=== PATIENT | male | born 2000 | race Hispanic/Latino ===

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

== ENCOUNTER 2021-03-14 18:54 | Emergency (ER) | payer BC, SELFPAY ==
--- OUTSIDE RECORDS SUMMARY | 2021-03-14 18:57 | XMS REPORT | Continuity of Care Document ---
:2000 Author Organization [facility] t Address [address] [place] [address] Care Team Providers Name Role Phone PHILIPPE PATEL Attending Clinician Unavailable Problems This patient has no known problems. Allergies, Adverse Reactions, Alerts This patient has no known allergies or adverse reactions. Medications This patient has no known medications. Procedures This patient has no known procedures. Encounters Start End Encounter Admission Attending Care Care Encounter Source Date/Time Date/Time Type Type Clinicians Facility Department ID 2021-03-03 2021-03-05 Emergency [facility] PATEL ALBARO [id number] 16:48:00 07:50:00 PHILIPPE Results This patient has no known results.
[2021-03-14] MEDS ORDERED: METOCLOPRAMIDE 10 MG/2mL INJ ONE (20:36)
[2021-03-14] MEDS ORDERED: NA CHLORIDE 0.9% 500 ML ONE (20:37)
[2021-03-14] MEDS ORDERED: DIPHENHYDRAMINE 50 MG/ML VIAL ONE (20:37)
[2021-03-14] MEDS ORDERED: KETOROLAC 30 MG/ML INJ ONE (20:37)
--- NOTE | 2021-03-14 21:19 | RAD REPORT ---
EXAM DESCRIPTION: CT - Head Brain Wo Cont - 03/14/2021 8:55 pm CLINICAL HISTORY: HEADACHE COMPARISON: <Comparisons> TECHNIQUE: All CT scans are performed using dose optimization technique as appropriate and may inclu de automated exposure control or mA/KV adjustment according to patient size. FINDINGS: No intracranial hemorrhage, hydrocephalus or extra-axial fluid collection.No areas of brai n edema or evidence of midline shift. Right maxillary sinus mucous retention cyst. The calvarium is intact. IMPRESSION: No acute intracranial abnormality.
--- NOTE | 2021-03-14 22:28 | ER ---
Nurse's Notes [facility] Name: Guy Sifuentes Age: 20 yrs Sex: Male : 2000 Arrival Date: 03/14/2021 Time: 18:55 Bed Treatment Private MD: Diagnosis: Headache Presentation: 03/14 19:02 Chief complaint: Patient states: [place]'s for at least over 1 month. Feel like he has ll1 fever. States they sent him to a psych facility in [place] after his last visit. Coronavirus screen: Vaccine status: Patient reports being unvaccinated. Client denies travel out of the [place] in the last 14 days. At this time, the client does not indicate any symptoms associated with coronavirus-19. Ebola Screen: Patient denies travel to an Ebola-affected area in the 21 days before illness onset. Initial Sepsis Screen: Does the patient meet any 2 criteria? No. Patient's initial sepsis screen is negative. Does the patient have a suspected source of infection? No. Patient's initial sepsis screen is negative. Risk Assessment: Do you want to hurt yourself or someone else? Patient reports no desire to harm self or others. Onset of symptoms was February 11, 2021. 19:02 Method Of Arrival: Ambulatory ll1 19:02 Acuity: ZULEIKA 3 ll1 Triage Assessment: 21:51 Pain: Also complains of nausea. vg1 Historical: - Allergies: 19:04 No Known Allergies; ll1 - PMHx: 19:04 None; ll1 - PSHx: 19:04 None; ll1 - Immunization history:: Client reports having NOT received the Covid vaccine. - Social history:: Smoking status: Reported history of juuling and/or vaping. Patient/guardian denies using tobacco, Stopped _ months ago .2. Screenin:04 Abuse screen: Denies threats or abuse. Nutritional screening: No deficits noted. vg1 Tuberculosis screening: No symptoms or risk factors identified. Fall Risk No fall in past 12 months (0 pts). No secondary diagnosis (0 pts). IV access (20 points). Ambulatory Aid- None/Bed Rest/Nurse Assist (0 pts). Gait- Normal/Bed Rest/Wheelchair (0 pts) Mental Status- Oriented to own ability (0 pts). Total Mueller Fall Scale indicates No Risk (0-24 pts). Assessment: 20:01 General: Appears in no apparent distress. uncomfortable, Behavior is anxious. Pain: vg1 Complains of pain in head Pain currently is 10 out of 10 on a pain scale. Pain began x1 month. Neuro: Level of Consciousness is awake, alert, obeys commands, Oriented to person, place, time, situation, Reports blurred vision dizziness, headache. Cardiovascular: Patient's skin is warm and dry. Respiratory: Airway is patent Respiratory effort is even, unlabored, Denies cough. GI: Reports nausea. : No signs and/or symptoms were reported regarding the genitourinary system. EENT: Denies nasal congestion, nasal discharge. Derm: Skin is intact, is healthy with good turgor. Musculoskeletal: Circulation, motion, and sensation intact. 21:01 Reassessment: Patient appears in no apparent distress at this time. No changes from vg1 previously documented assessment. Patient and/or family updated on plan of care and expected duration. Pain level reassessed. Patient is alert, oriented x 3, equal unlabored respirations, skin warm/dry/pink. 21:50 Reassessment: Patient appears in no apparent distress at this time. Patient and/or vg1 family updated on plan of care and expected duration. Pain level reassessed. Patient is alert, oriented x 3, equal unlabored respirations, skin warm/dry/pink. Rates headache 2/10 Patient states feeling better. Vital Signs: 19:02 BP 133 / 77; Pulse 82; Resp 17; Temp 98.1; Pulse Ox 97% ; Weight 68.04 kg; Height 5 ft. ll1 7 in. (170.18 cm); Pain 10/10; 21:54 BP 127 / 71; Pulse 69; Resp 16; Pulse Ox 98% ; vg1 19:02 Body Mass Index 23.49 (68.04 kg, 170.18 cm) ll1 ED Course: 18:55 Patient arrived in ED. am2 18:56 [facility] 18:56 Abundio Lockwood MD is Attending Physician. [facility] 19:04 Triage completed. ll1 19:05 Arm band placed on. 1 19:37 Attending Physician role handed off by Abundio Lockwood MD [facility] 19:37 Adriel Anne MD is Attending Physician. grant 19:43 Lisa Pope, RN is Primary Nurse. vg1 20:04 Patient has correct armband on for positive identification. Bed in low position. Call vg1 light in reach. Adult w/ patient. 20:48 Inserted saline lock: 20 gauge in left antecubital area, using aseptic technique. vg1 20:54 CT Head Brain wo Cont In Process Unspecified. EDMS 21:51 No provider procedures requiring assistance completed. vg1 22:28 Andrea Moreno MD is Referral Physician. [facility] 22:38 IV discontinued, intact, bleeding controlled, No redness/swelling at site. Pressure vg1 dressing applied. Administered Medications: 20:49 Drug: diphenhydrAMINE 12.5 mg Route: IVP; Site: left antecubital; vg1 21:50 Follow up: Response: No adverse reaction; Marked relief of symptoms vg1 20:51 Drug: Ketorolac 30 mg Route: IVP; Site: left antecubital; vg1 21:50 Follow up: Response: No adverse reaction; Marked relief of symptoms vg1 20:53 Drug: NS 0.9% 500 ml Route: IV; Rate: bolus; Site: left antecubital; vg1 21:50 Follow up: IV Status: Completed infusion; IV Intake: 500ml vg1 20:53 Drug: Reglan (metoCLOPramide) 20 mg Route: IVP; Site: left antecubital; vg1 21:50 Follow up: Response: No adverse reaction; Marked relief of symptoms vg1 Intake: 21:50 IV: 500ml; Total: 500ml. vg1 Outcome: 22:27 Discharge ordered by . [facility] 22:36 Discharged to home ambulatory, with family. vg1 22:36 Condition: stable 22:36 Discharge instructions given to patient, family, Instructed on discharge instructions, follow up and referral plans. Demonstrated understanding of instructions, follow-up care. 22:38 Patient left the ED. vg1 Signatures: Dispatcher [employer] Adriel Hui MD MD cha Mickail, Joel, SKINNY BABB Nazia Gutierrez am2 Lisa Pope, RN RN vg1 Amy Gomes RN RN ll1
--- NOTE | 2021-03-14 22:28 | EDPHYS ---
Physician Documentation [facility] Name: Guy Sifuentes Age: 20 yrs Sex: Male : 2000 Arrival Date: 03/14/2021 Time: 18:55 Bed Treatment Private MD: ED Physician Adriel Anne Historical: - Allergies: 03/14 19:04 No Known Allergies; ll1 - PMHx: 19:04 None; ll1 - PSHx: 19:04 None; ll1 - Immunization history:: Client reports having NOT received the Covid vaccine. - Social history:: Smoking status: Reported history of juuling and/or vaping. Patient/guardian denies using tobacco, Stopped _ months ago .2. Vital Signs: 19:02 BP 133 / 77; Pulse 82; Resp 17; Temp 98.1; Pulse Ox 97% ; Weight 68.04 kg; Height 5 ft. ll1 7 in. (170.18 cm); Pain 10/10; 21:54 BP 127 / 71; Pulse 69; Resp 16; Pulse Ox 98% ; vg1 19:02 Body Mass Index 23.49 (68.04 kg, 170.18 cm) ll1 MDM: 19:38 Patient medically screened. grant 22:26 Data reviewed: vital signs, nurses notes. Counseling: I had a detailed discussion with [facility] the patient and/or guardian regarding: the historical points, exam findings, and any diagnostic results supporting the discharge/admit diagnosis, the need for outpatient follow up, to return to the emergency department if symptoms worsen or persist or if there are any questions or concerns that arise at home. 03/14 20:32 Order name: CT Head Brain wo Cont; Complete Time: 21:23 [facility] 03/14 20:32 Order name: Saline Lock; Complete Time: 20:59 [facility] Administered Medications: 20:49 Drug: diphenhydrAMINE 12.5 mg Route: IVP; Site: left antecubital; vg1 21:50 Follow up: Response: No adverse reaction; Marked relief of symptoms vg1 20:51 Drug: Ketorolac 30 mg Route: IVP; Site: left antecubital; vg1 21:50 Follow up: Response: No adverse reaction; Marked relief of symptoms vg1 20:53 Drug: NS 0.9% 500 ml Route: IV; Rate: bolus; Site: left antecubital; vg1 21:50 Follow up: IV Status: Completed infusion; IV Intake: 500ml vg1 20:53 Drug: Reglan (metoCLOPramide) 20 mg Route: IVP; Site: left antecubital; vg1 21:50 Follow up: Response: No adverse reaction; Marked relief of symptoms vg1 Disposition Summary: 03/14/21 22:27 Discharge Ordered Location: Home [facility] Condition: Stable jm Diagnosis - Headache jm Followup: jmm - With: Private Physician - When: 2 - 3 days - Reason: Recheck today's complaints, Continuance of care, Re-evaluation by your physician Followup: [facility] - With: Andrea Moreno MD - When: 2 - 3 days - Reason: Recheck today's complaints, Continuance of care, Re-evaluation by your physician Discharge Instructions: - Discharge Summary Sheet jm - Migraine Headache [facility] Forms: - Medication Reconciliation Form [facility] - Thank You Letter [facility] - Antibiotic Education [facility] - Prescription Opioid Use [facility] Addendum: 03/16/2021 07:16 Co-signature as Attending Physician, Adriel Anne MD I agree with the assessment and c stevenson plan of care. Signatures: Dispatcher [employer] Adriel Hui MD MD cha Mickail, Joel, PA PA jmm Garcia, Victoria, RN RN vg1 Amy Gomes RN RN ll1
[2021-03-15 00:55] VITALS: BP 127/71; O2SAT 98
[2021-03-15 00:56] VITALS: TEMP 98.1
== END 2021-03-14 22:38 | disposition home or self-care (01) ==
LOC: ER 18:54
DX: R51.9 Headache, unspecified (principal)
CPT/HCPCS: 96361; 70450; 96375; 96374; 99283; J2765; J1200; J7040

== ENCOUNTER 2021-10-28 18:54 | Emergency (ER) | payer BC ==
--- NOTE | 2021-10-28 21:37 | RAD REPORT ---
EXAM DESCRIPTION: CT - Head Brain Wo Cont - 10/28/2021 9:20 pm CLINICAL HISTORY: headache COMPARISON: Head Brain Wo Cont dated 03/14/2021 TECHNIQUE: All CT scans are performed using dose optimization technique as appropriate and may inclu de automated exposure control or mA/KV adjustment according to patient size. FINDINGS: No intracranial hemorrhage, hydrocephalus or extra-axial fluid collection.No areas of brai n edema or evidence of midline shift. Mucous retention cyst right maxillary sinus. The calvarium is intact. IMPRESSION: No acute intracranial abnormality.
[2021-10-28] MEDS ORDERED: dexAMETHasone 10 MG/ML VIAL ONE (21:46)
[2021-10-28] MEDS ORDERED: KETOROLAC 30 MG/ML INJ ONE (21:46)
[2021-10-28] MEDS ORDERED: NA CHLORIDE 0.9% 1,000 ML ONE (21:46)
[2021-10-28] MEDS ORDERED: METOCLOPRAMIDE 10 MG/2mL INJ ONE (21:46)
[2021-10-28] MEDS ORDERED: DIPHENHYDRAMINE 50 MG/ML VIAL ONE (21:46)
--- NOTE | 2021-10-28 23:00 | ER ---
Nurse's Notes [facility] Name: Guy Sifuentes Age: 20 yrs Sex: Male : 2000 Arrival Date: 10/28/2021 Time: 19:01 Bed 12 Private MD: Diagnosis: Headache Presentation: 10/28 19:15 Chief complaint: Patient states: "They told me to take an advil, but that has not tw5 helped my headache it has been hurting bad for a couple of days.". Coronavirus screen: Vaccine status: Patient reports being unvaccinated. Ebola Screen: Patient negative for fever greater than or equal to 101.5 degrees Fahrenheit, and additional compatible Ebola Virus Disease symptoms Patient denies exposure to infectious person. Patient denies travel to an Ebola-affected area in the 21 days before illness onset. Initial Sepsis Screen: Does the patient meet any 2 criteria? No. Patient's initial sepsis screen is negative. Does the patient have a suspected source of infection? No. Patient's initial sepsis screen is negative. Risk Assessment: Do you want to hurt yourself or someone else? Patient reports no desire to harm self or others. Onset of symptoms was October 27, 2021. 19:15 Method Of Arrival: Ambulatory tw5 19:15 Acuity: ZULEIKA 4 tw5 Triage Assessment: 19:17 Headache History: The patient has had previous headaches and this one is similar to tw5 previous episodes. General: Appears in no apparent distress. Behavior is calm, cooperative, appropriate for age. General: Reports. Pain: Pain currently is 7 out of 10 on a pain scale. Pain began 2-3 days ago. Also complains of no other associated symptoms. Neuro: Level of Consciousness is awake, alert, obeys commands, Oriented to person, place, time, situation. Historical: - Allergies: 19:17 No Known Allergies; tw5 - Home Meds: 19:17 None [Active]; tw5 - PMHx: 19:17 None; tw5 - PSHx: 19:17 None; tw5 - Immunization history:: Flu vaccine status is unknown. - Social history:: Smoking status: Patient reports the use of cigarette tobacco products. Screenin:24 Abuse screen: Denies threats or abuse. Denies injuries from another. Nutritional tw5 screening: No deficits noted. Tuberculosis screening: No symptoms or risk factors identified. Fall Risk None identified. Assessment: 20:24 General: Reports "It hurts worse in one spot then the pain just wraps around. I have tw5 been having these headaches for a couple of months. Last time I came in they had to give me medication through my veins to help me. I have been seen here and kae Billingsley.". Pain: Complains of pain in right temporal area Pain radiates to left side of the back of head, right side of the back of head and right temporal area Pain currently is 6 out of 10 on a pain scale. Neuro: Level of Consciousness is awake, alert, obeys commands, Oriented to person, place, time, situation, Moves all extremities. 21:45 Reassessment: Patient appears in no apparent distress at this time. Patient is alert, lp1 oriented x 3, equal unlabored respirations, skin warm/dry/pink. Patient reports headache that has lasted about 1 year, has not followed up with PCP or Neuro yet; reports pain to bilateral temporal area that makes it hard to concentrate at times. 22:40 Reassessment: Patient sleeping on arrival into room; mother at bedside Patient states lp1 feeling better. Patient states symptoms have improved. Vital Signs: 19:15 BP 140 / 67; Pulse 87; Resp 18; Temp 97.7; Pulse Ox 95% ; Weight 74.84 kg; Height 5 ft. tw5 9 in. (175.26 cm); Pain 7/10; 20:24 BP 134 / 96; Pulse 77; Resp 18; Pulse Ox 99% on R/A; tw5 21:45 BP 131 / 84; Pulse 58; Resp 16; Pulse Ox 100% on R/A; Pain 5/10; lp1 19:15 Body Mass Index 24.37 (74.84 kg, 175.26 cm) tw5 ED Course: 19:01 Patient arrived in ED. am2 19:17 Triage completed. tw5 19:17 Arm band placed on right wrist. tw5 19:19 Patient notified of wait time. tw5 19:24 Gabriel Antoine PA is PHCP. [facility] 19:24 Adriel Anne MD is Attending Physician. [facility] 20:24 Patient has correct armband on for positive identification. Pulse ox on. NIBP on. Door tw5 closed. Moved to private room. Verbal reassurance given. 21:21 CT Head Brain wo Cont In Process Unspecified. EDMS 21:45 Inserted saline lock: 20 gauge in left antecubital area, using aseptic technique. lp1 21:57 Kylee Moore, RN is Primary Nurse. lp1 22:00 No provider procedures requiring assistance completed. lp1 22:59 Andrea Moreno MD is Referral Physician. m 23:15 IV discontinued, No redness/swelling at site. Pressure dressing applied. lp1 Administered Medications: 21:50 Drug: NS 0.9% 1000 ml Route: IV; Rate: 1 bolus; Site: left antecubital; lp1 22:40 Follow up: IV Status: Completed infusion; IV Intake: 1000ml lp1 21:50 Drug: Reglan (metoCLOPramide) 20 mg Route: IVP; Site: left antecubital; lp1 22:40 Follow up: Response: Marked relief of symptoms lp1 21:50 Drug: Ketorolac 30 mg Route: IVP; Site: left antecubital; lp1 22:40 Follow up: Response: Marked relief of symptoms lp1 21:50 Drug: Decadron - Dexamethasone 10 mg Route: IVP; Site: left antecubital; lp1 22:40 Follow up: Response: Marked relief of symptoms lp1 21:50 Drug: diphenhydrAMINE 25 mg Route: IVP; Site: left antecubital; lp1 22:40 Follow up: Response: Marked relief of symptoms lp1 Medication: 22:00 VIS not applicable for this client. lp1 Intake: 22:40 IV: 1000ml; Total: 1000ml. lp1 Outcome: 22:59 Discharge ordered by MD. [facility] 23:16 Discharged to home ambulatory, with family. lp1 23:16 Condition: good 23:16 Discharge instructions given to patient, Instructed on discharge instructions, follow up and referral plans. Demonstrated understanding of instructions, follow-up care. 23:16 Patient left the ED. lp1 Signatures: Dispatcher [employer] EDMS Gabriel Antoine PA PA jmm Pena, Laura, RN RN lp1 Nazia Tran am2 Kae Mcmahon tw5
--- NOTE | 2021-10-28 23:00 | EDPHYS ---
Physician Documentation [facility] Name: Guy Sifuentes Age: 20 yrs Sex: Male : 2000 Arrival Date: 10/28/2021 Time: 19:01 Bed 12 Private MD: CHLOE Physician Adriel Anne HPI: 10/28 20:22 This 20 yrs old Male presents to ER via Ambulatory with complaints of Headache jmm - migraine. 20:22 The patient complains of pain to the right frontal area, right side of the back of jmm head, right temporal area, right occipital area and right mosque. Onset: The symptoms/episode began/occurred gradually, 3 day(s) ago. Associated signs and symptoms: Pertinent negatives: fever, paresthesias, Photophobia rash, sinus congestion, vision changes. Headache History: The patient has had previous headaches and this one is similar to previous episodes. The patient has experienced similar episodes in the past. Historical: - Allergies: 19:17 No Known Allergies; tw5 - Home Meds: 19:17 None [Active]; tw5 - PMHx: 19:17 None; tw5 - PSHx: 19:17 None; tw5 - Immunization history:: Flu vaccine status is unknown. - Social history:: Smoking status: Patient reports the use of cigarette tobacco products. ROS: 20:22 Constitutional: Negative for fever, chills, and weight loss, Cardiovascular: Negative jmm for chest pain, palpitations, and edema, Respiratory: Negative for shortness of breath, cough, wheezing, and pleuritic chest pain. 20:22 Neuro: Positive for headache. 20:22 All other systems are negative. Exam: 20:22 Constitutional: This is a well developed, well nourished patient who is awake, alert, jmm and in no acute distress. Head/Face: atraumatic. Eyes: EOMI, no conjunctival erythema appreciated ENT: Moist Mucus Membranes Neck: Trachea midline, Supple Chest/axilla: Normal chest wall appearance and motion. Cardiovascular: Regular rate and rhythm. No edema appreciated Respiratory: Normal respirations, no respiratory distress appreciated Abdomen/GI: Non distended Back: Normal ROM Skin: General appearance color normal MS/ Extremity: Moves all extremities, no obvious deformities appreciated, no edema noted to the lower extremities Neuro: Awake and alert Psych: Behavior is normal, Mood is normal, Patient is cooperative and pleasant Vital Signs: 19:15 BP 140 / 67; Pulse 87; Resp 18; Temp 97.7; Pulse Ox 95% ; Weight 74.84 kg; Height 5 ft. tw5 9 in. (175.26 cm); Pain 7/10; 20:24 BP 134 / 96; Pulse 77; Resp 18; Pulse Ox 99% on R/A; tw5 21:45 BP 131 / 84; Pulse 58; Resp 16; Pulse Ox 100% on R/A; Pain 5/10; lp1 19:15 Body Mass Index 24.37 (74.84 kg, 175.26 cm) tw5 MDM: 20:22 Patient medically screened. [facility] 22:58 Data reviewed: vital signs, nurses notes. Counseling: I had a detailed discussion with oswald the patient and/or guardian regarding: the historical points, exam findings, and any diagnostic results supporting the discharge/admit diagnosis, radiology results, the need for outpatient follow up, to return to the emergency department if symptoms worsen or persist or if there are any questions or concerns that arise at home. ED course: Relieved in the ED. Patient's neck is supple. I do not currently suspect meningitis. Patient is alert nontoxic in appearance. Denies suspect subarachnoid hemorrhage patient advised to follow-up with neurology and otherwise given strict return precautions. Patient instructed agrees to plan of care.. 10/28 21:06 Order name: CT Head Brain wo Cont; Complete Time: 21:39 [facility] 10/28 21:06 Order name: Saline Lock; Complete Time: 21:58 [facility] Administered Medications: 21:50 Drug: NS 0.9% 1000 ml Route: IV; Rate: 1 bolus; Site: left antecubital; lp1 22:40 Follow up: IV Status: Completed infusion; IV Intake: 1000ml lp1 21:50 Drug: Reglan (metoCLOPramide) 20 mg Route: IVP; Site: left antecubital; lp1 22:40 Follow up: Response: Marked relief of symptoms lp1 21:50 Drug: Ketorolac 30 mg Route: IVP; Site: left antecubital; lp1 22:40 Follow up: Response: Marked relief of symptoms lp1 21:50 Drug: Decadron - Dexamethasone 10 mg Route: IVP; Site: left antecubital; lp1 22:40 Follow up: Response: Marked relief of symptoms lp1 21:50 Drug: diphenhydrAMINE 25 mg Route: IVP; Site: left antecubital; lp1 22:40 Follow up: Response: Marked relief of symptoms lp1 Disposition Summary: 10/28/21 22:59 Discharge Ordered Location: Home [facility] Condition: Stable jmm Diagnosis - Headache jm Followup: [facility] - With: Andrea Moreno MD - When: 2 - 3 days - Reason: Recheck today's complaints, Continuance of care, Re-evaluation by your physician Discharge Instructions: - Discharge Summary Sheet jm - Migraine Headache jm Forms: - Medication Reconciliation Form [facility] - Thank You Letter [facility] - Antibiotic Education [facility] - Prescription Opioid Use [facility] Signatures: Dispatcher [employer] Adriel Hui MD MD cha Mickail, Joel, PA PA jmm Pena, Laura, RN RN lp1 Kae Mcmahon tw5
[2021-10-28 23:50] VITALS: TEMP 97.7
[2021-10-28 23:53] VITALS: BP 131/84; O2SAT 100
== END 2021-10-28 23:16 | disposition home or self-care (01) ==
LOC: ER 18:54
DX: R51.9 Headache, unspecified (principal); Z72.0 Tobacco use
CPT/HCPCS: 96361; 70450; 96375; 96374; 99284; J2765; J1200; J1100; J7030

== ENCOUNTER 2022-03-26 16:13 | Emergency (ER) | payer BC ==
--- OUTSIDE RECORDS SUMMARY | 2022-03-26 16:18 | XMS REPORT | Continuity of Care Document ---
:2000 Author Organization [facility] t Address [address] [place] [address] Care Team Providers Name Role Phone Cayla Calderon Attending Clinician Domonique Dominique Attending Clinician DOMONIQUE DOMINIQUE Attending Clinician Unavailable Problems Condition Condition Condition Status Onset Resolution Last Treating Co mments Source Name Details Category Date Date Treatment Clinician Date SUCIDAL SUCIDAL Diagnosis Active 2020-042021-03-10 Memoria IDEATION/D IDEATION/D 05-03 22:06:00 l EPRESSION/ EPRESSION/ 00:00: He nateann VOMITTING VOMITTING 00 Active 03/03/[address] 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 Active Problem 03/17/2021 [facility] Poisoning Poisoning Problem Active 2021-03-17 Memoria by drug by drug 22:55:35 l AND/OR AND/OR Marco medicinal medicinal substance substance (disorder) (disorder) Active Problem 03/17/2021 [facility] Suicidal Suicidal Problem Active 2021-03-17 Memoria thoughts thoughts 22:55:35 l (finding) (finding) Herm aurelia Active Problem 03/17/2021 Medical [facility] Unintentio Unintenti Problem Active 2021-03-17 Memoria nal weight onal 22:55:35 l loss weight [place] (finding) loss (finding) Active Problem 03/17/2021 Medical [facility] Vomiting Vomiting Problem Active 2021-03-17 Memoria (disorder) (disorder) 22:55:35 l Active Marco Problem 03/17/2021 [facility] Allergies, Adverse Reactions, Alerts This patient has no known allergies or adverse reactions. Social History Smoking Status Start Date Stop Date Source Social History [facility] [place] [place] Medications Ordered Filled Start Stop Current Ordering Indication Dosage Frequency Signature Comments Components Source Medication Medication Date Date Medication? Clinician (SIG) Name Name Ativan 2020-04 No Notes: Memoria -06 (Same as: l 23:44: Ativan) Ketamine 2020-04 No 300 mg, 3 Chris brina 1-06 mL, Route: l 03:40: IM, Drug form: INJ, ONCE, Dosing Weight 68.182, kg, Start date: 03/03/21 22:40:00 CDT, Stop date: 03/03/21 22:40:00 CDT, 0 Haldol 2020-04 No 5 mg, Memoria - Route: IM, l 01:27: ONCE, Dosing Weight 68.182, kg, Priority: STAT, Start date: 03/03/21 20:27:00 CDT, Stop date: 03/03/21 20:27:00 CDT Benadryl 2020-04 No 50 mg, Memoria 05-04 Route: IM, l 01:27: ONCE, Dosing Weight 68.182, kg, Priority: STAT, Start date: 03/03/21 20:27:00 CDT, Stop date: 03/03/21 20:27:00 CDT Ativan 2020-04 No 1 mg, Memoria 1-05 Route: l 23:42: IVP, Drug [place] 00 form: INJ, ONCE, Dosing Weight 68.182, kg, Priority: STAT, Start date: 03/03/21 18:42:00 CDT, Stop date: 03/03/21 18:42:00 CDT Ketoconazol 2019-04 Yes 1 appl, Mem oria e 20 MG/ML 2-16 TOP, l Topical 21:40: Daily, X 2 Herm aurelia Cream 00 week, # 15 gm, 1 Refill(s), Pharmacy: [id number], 175.26, cm, 04/13/20 15:26:00 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, Height, 88.665, kg, 04/13/20 15:26:00 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, Weight Vital Signs Vital Name Observation Time Observation Value Comments Source Temperature Oral (F) 2021-03-05 13:45:00 98.2 F [facility] Heart Rate 2021-03-05 13:45:00 [facility] Respitory Rate 2021-03-05 13:45:00 [facility] [place] Systolic (mm Hg) 2021-03-05 13:45:00 Chris rial [place] Diastolic (mm Hg) 2021-03-05 13:45:00 Mem orial [place] Temperature Oral (F) 2021-03-05 10:00:00 98.6 F [facility] Heart Rate 2021-03-05 10:00:00 [facility] Respitory Rate 2021-03-05 10:00:00 [facility] [place] Systolic (mm Hg) 2021-03-05 10:00:00 Chris rial [place] Diastolic (mm Hg) 2021-03-05 10:00:00 Mem orial [place] Temperature Oral (F) 2021-03-05 05:00:00 98.3 F [facility] Heart Rate 2021-03-05 05:00:00 [facility] Respitory Rate 2021-03-05 05:00:00 [facility] [place] Systolic (mm Hg) 2021-03-05 05:00:00 Chris rial [place] Diastolic (mm Hg) 2021-03-05 05:00:00 Mem orial [place] Height 2021-03-03 21:51:00 167.64 cm [facility] BMI Calculated 2021-03-03 21:51:00 [facility] [place] Weight 2021-03-03 21:51:00 [facility] Weight 2021-03-03 20:53:00 [facility] BMI Calculated 2021-03-03 20:53:00 [facility] [place] Systolic (mm Hg) 2021-03-03 20:53:00 Chris rial [place] Diastolic (mm Hg) 2021-03-03 20:53:00 Mem orial [place] Heart Rate 2021-03-03 20:53:00 [facility] Height 2021-03-03 20:53:00 167.64 cm [facility] Systolic (mm Hg) 2020-04-13 21:26:00 Chris rial [place] Diastolic (mm Hg) 2020-04-13 21:26:00 Mem orial [place] Heart Rate 2020-04-13 21:26:00 [facility] Temperature Oral (F) 2020-04-13 21:26:00 97.2 F [facility] Height 2020-04-13 21:26:00 175.26 cm [facility] Weight 2020-04-13 21:26:00 [facility] BMI Calculated 2020-04-13 21:26:00 [facility] [place] Procedures This patient has no known procedures. Encounters Start End Encounter Admission Attending Care Care Encounter Source Date/Time Date/Time Type Type Clinicians Facility Department ID 2021-03-15 2021-03-15 Ambulatory nullFlavo [facility] [id number] Memoria 17:45:00 17:45:00 Pre-Reg r Primary 03 l [facility] 2021-03-15 2021-03-15 Outpatient MICHELLE CADE [id number] Memoria 11:45:00 11:45:00 03 l [place] 2021-03-15 2021-03-15 Outpatient Ukwu, [facility] [id number] 11:45:00 11:45:00 Cayla 03 [place] 2021-03-03 2021-03-05 Emergency nullFlavo [facility] [id number] Memoria 21:48:51 13:50:00 r Marco 00 l [facility] 2021-03-03 2021-03-05 Outpatient [place], [facility] [id number] 16:48:51 07:50:00 Domonique 00 [place] 2021-03-03 2021-03-05 Outpatient [place], [facility] [id number] 16:48:51 07:50:00 Domonique 00 [place] 2021-03-03 2021-03-05 Emergency E FADOWOLE, MHBL MHBL [id number] MHBL 16:48:00 07:50:00 DOMONIQUE 2021-03-03 2021-03-04 [place] [id number] Memoria 20:45:00 04:59:59 r Primary 02 [facility] 2021-03-03 2021-03-03 [id number] 15:45:00 23:59:59 Cayla 02 [facility] 2021-03-03 2021-03-03 Outpatient [place] [id number] Memoria 15:45:00 15:45:00 02 [facility] 2020-12-16 2020-12-16 Outpatient MHIE IE [id number] Memoria 15:15:00 15:15:00 01 [facility] 2020-04-13 2020-04-14 [place] [id number] Memoria 21:30:00 05:59:59 r Primary 00 [facility] 2020-04-13 2020-04-13 [facility] [id number] 15:30:00 23:59:59 Cayla 00 [facility] 2020-04-13 2020-04-13 Outpatient MHIE IE [id number] Memoria 15:30:00 15:30:00 00 [facility] Results Test Description Test Time Test Comments Results Result Comments Source [facility] 2021-03-04 08:35:00 Test Item Value Reference Range Interpretation Comme nts Coronavirus (COVID-19) [place] (test code = Not Detected (03/04/21 3:35 AM) Coronavirus (COVID-19) [place]) [facility]2021-11-05 23:30:00 Test Item Value Reference Range Interpretation Comments U Amph Scr (test code Negative *NA*(03/03/21 = U Amph Scr) 6:30 PM) [facility] [id number] 23:30:00 Test Item Value Reference Range Interpretation Comments U Fabiola Scr (test code Negative *NA*(03/03/21 = U Fabiola Scr) 6:30 PM) [facility] [id number] 23:30:00 Test Item Value Reference Range Interpretation Comments U Benzodiaz Scr (test Positive *ABN*(03/03/21 code = U Benzodiaz Scr) 6:30 PM) [facility] [id number] 23:30:00 Test Item Value Reference Range Interpretation Comments U Cocaine Scr (test Negative *NA*(03/03/21 code = U Cocaine Scr) 6:30 PM) [facility] [employer] [id number] 23:30:00 Test Item Value Reference Range Interpretation Comments U Cannab Scr (test Positive *ABN*(03/03/21 code = U Cannab Scr) 6:30 PM) [facility] [employer] [id number] 23:30:00 Test Item Value Reference Range Interpretation Comments U Opiate Scr (test Negative *NA*(03/03/21 code = U Opiate Scr) 6:30 PM) [facility] [employer] [id number] 23:30:00 Test Item Value Reference Range Interpretation Comments U Phencyclidine Scr (test Negative code = U Phencyclidine *NA*(03/03/21 6:30 Scr) PM) [facility] [employer] [id number] 23:30:00 Test Item Value Reference Range Interpretation Comments UDS Note (test code = See Note (03/03/21 6:30 UDS Note) PM) [facility] Avnera [id number] 22:36:00 Test Item Value Reference Range Interpretation Comments Glucose Lvl (test code = Glucose Lvl) 85 70-99 [facility] Avnera [id number] 22:36:00 Test Item Value Reference Range Interpretation Comments BUN (test code = BUN) 9 - [facility] [employer]ner[employer] [id number] 22:36:00 Test Item Value Reference Range Interpretation Comments Creatinine Lvl (test code = Creatinine 0.87 0.50-1.40 Lvl) [facility] [employer] [id number] 22:36:00 Test Item Value Reference Range Interpretation Comments Sodium Lvl (test code = Sodium Lvl) 139 135-145 [place] [id number] 22:36:00 Test Item Value Reference Range Interpretation Comments Potassium Lvl (test code = Potassium 3.9 3.5-5.1 Lvl) [place] [id number] 22:36:00 Test Item Value Reference Range Interpretation Comments Chloride Lvl (test code = Chloride Lvl) 106 95-109 [place] [id number] 22:36:00 Test Item Value Reference Range Interpretation Comments CO2 (test code = CO2) 30 24-32 [place] [id number] 22:36:00 Test Item Value Reference Range Interpretation Comments Calcium Lvl (test code = Calcium Lvl) 9.4 8.5-10.5 [place] [id number] 22:36:00 Test Item Value Reference Range Interpretation Comments Total Protein (test code = Total 7.3 6.4-8.4 Protein) [place] [id number] 22:36:00 Test Item Value Reference Range Interpretation Comments Albumin Lvl (test code = Albumin Lvl) 4.1 3.5-5.0 [facility]3FLOZ [id number] 22:36:00 Test Item Value Reference Range Interpretation Comments ALT (test code = ALT) 30 See_Comment [Auto mated message] The system which ge nerated this result transmit travis reference range : <=65. The reference range was not used to interpr et this result as vlad l/abnormal. [facility]3FLOZ [id number] 22:36:00 Test Item Value Reference Range Interpretation Comments AST (test code = AST) 16 See_Comment [Auto mated message] The system which ge nerated this result transmit travis reference range : <=37. The reference range was not used to interpr et this result as vlad l/abnormal. [facility] [place] [id number] 22:36:00 Test Item Value Reference Range Interpretation Comments Alk Phos (test code = Alk Phos) 95 39-[address] [facility] [place] ID [id number] 22:36:00 Test Item Value Reference Range Interpretation Comments Bili Total (test code = Bili Total) 0.5 0.2-1.[address]11-05 22:36:00 Test Item Value Reference Range Interpretation Comments AGAP (test code = AGAP) 6.9 10.0-20.[address]11-05 22:36:00 Test Item Value Reference Range Interpretation Comments B/C Ratio (test code = B/C Ratio) 10 1 6-[address]-05 22:36:00 Test Item Value Reference Range Interpretation Comments Globulin (test code = Globulin) 3.2 2.7-4.[address]11-05 22:36:00 Test Item Value Reference Range Interpretation Comments A/G Ratio (test code = A/G Ratio) 1.3 1 0.7-1.6 [place] [address]-05 22:36:00 Test Item Value Reference Range Interpretation Comments eGFR (test code = eGFR) [address]11-05 22:36:00 Test Item Value Reference Range Interpretation Comments WBC (test code = WBC) 6.1 3.7-10.[address]11-05 22:36:00 Test Item Value Reference Range Interpretation Comments RBC (test code = RBC) 4.42 4.70-6.[address]11-05 22:36:00 Test Item Value Reference Range Interpretation Comments Hgb (test code = Hgb) 13.6 14.0-18.[address]11-05 22:36:00 Test Item Value Reference Range Interpretation Comments Hct (test code = Hct) 40.0 42.0-54.0 [address]11-05 22:36:00 Test Item Value Reference Range Interpretation Comments MCV (test code = MCV) 90.4 80.0-94.0 [address]11-05 22:36:00 Test Item Value Reference Range Interpretation Comments MCH (test code = MCH) 30.8 pg 27.0-31.[address]11-05 22:36:00 Test Item Value Reference Range Interpretation Comments MCHC (test code = MCHC) 34.0 32.0-36.0 [place] [address]-11-05 22:36:00 Test Item Value Reference Range Interpretation Comments RDW (test code = RDW) 14.3 11.5-14.5 [place] [id number] 22:36:00 Test Item Value Reference Range Interpretation Comments Platelet (test code = Platelet) 221 219-450 [place] [id number] 22:36:00 Test Item Value Reference Range Interpretation Comments MPV (test code = MPV) 9.8 7.4-10.4 [place] [address]-11-05 22:36:00 Test Item Value Reference Range Interpretation Comments Segs (test code = Segs) 59.7 45.0-75.0 [place] [address]-11-05 22:36:00 Test Item Value Reference Range Interpretation Comments Lymphocytes (test code = Lymphocytes) 30.3 20.0-40.[address]11-05 22:36:00 Test Item Value Reference Range Interpretation Comments Monocytes (test code = Monocytes) 6.6 2.0-12.0 [place] [address]-11-05 22:36:00 Test Item Value Reference Range Interpretation Comments Eosinophils (test code = 2.9 See_Comment [A utomated message] The Eosinophils) system which ge nerated this result tra nsmitted reference range : <=4.0. The reference r heriberto was not used to int erpret this result as normal/abnormal . [place] [address]-11-05 22:36:00 Test Item Value Reference Range Interpretation Comments Basophils (test code = 0.5 See_Comment [Aut omated message] The Basophils) system which ge nerated this result tra nsmitted reference range : <=1.0. The reference r heriberto was not used to int erpret this result as normal/abnormal . [place] 088071-11-05 22:36:00 Test Item Value Reference Range Interpretation Comments Neutrophils # (test code = Neutrophils 3.7 1.5-8.1 #) [place] 088071-11-05 22:36:00 Test Item Value Reference Range Interpretation Comments Lymphocytes # (test code = Lymphocytes 1.8 1.0-5.5 #) [address]11-05 22:36:00 Test Item Value Reference Range Interpretation Comments Monocytes # (test code 0.4 See_Comment [Aut omated message] The = Monocytes #) system which generated this result tra nsmitted reference range : <=0.8. The reference r heriberto was not used to int erpret this result as normal/abnormal . [facility], [id number] 22:36:00 Test Item Value Reference Range Interpretation Comments Eosinophils # (test code 0.2 See_Comment [A utomated message] The = Eosinophils #) system whic h generated this result tra nsmitted reference range : <=0.5. The reference r heriberto was not used to int erpret this result as normal/abnormal . [facility], [id number] 22:36:00 Test Item Value Reference Range Interpretation Comments Acetaminoph Lvl (test code = 4 10-20 Acetaminoph Lvl) [id number] 22:36:00 Test Item Value Reference Range Interpretation Comments Ethanol Lvl (test code = Ethanol Lvl) no gt [id number] 22:36:00 Test Item Value Reference Range Interpretation Comments Etoh (%) (test code = Etoh (%)) no gt [facility], [id number] 22:36:00 Test Item Value Reference Range Interpretation Comments Salicylate Lvl (test no gt See_Comment [Autom ated message] The code = Salicylate Lvl) syste m which generated this result tra nsmitted reference range : <=30.0. The reference r heriberto was not used to int erpret this result as normal/abnormal . [facility]
--- NOTE | 2022-03-26 17:39 | ER ---
Nurse's Notes [facility] Name: Guy Sifuentes Age: 21 yrs Sex: Male : 2000 Arrival Date: 03/26/2022 Time: 16:17 Bed IW7 Private MD: Diagnosis: Headache;Cyclical vomiting, not intractable Presentation: 03/26 17:08 Chief complaint: Patient states: migraines x 1 year. Pt reports his migraine today has ss been going on for "sometime." Pt states that he missed his neurology appointment he had scheduled. Coronavirus screen: Client denies travel out of the [place] in the last 14 days. Ebola Screen: Patient denies exposure to infectious person. Patient denies travel to an Ebola-affected area in the 21 days before illness onset. Initial Sepsis Screen: Does the patient meet any 2 criteria? No. Patient's initial sepsis screen is negative. Does the patient have a suspected source of infection? No. Patient's initial sepsis screen is negative. Risk Assessment: Do you want to hurt yourself or someone else? Patient reports no desire to harm self or others. Onset of symptoms is unknown. 17:08 Method Of Arrival: Ambulatory ss 17:08 Acuity: ZULEIKA 4 ss Historical: - Allergies: 17:10 No Known Allergies; ss - Home Meds: 17:10 None [Active]; ss - PMHx: 17:10 migraines; ss - PSHx: 17:10 None; ss - Immunization history:: Client reports receiving the 2nd dose of the Covid vaccine. - Social history:: Smoking status: Patient reports the use of cigarette tobacco products, denies chronic smoking, but will smoke occasionally, Patient uses street drugs, marijuana. Vital Signs: 17:08 BP 109 / 98; Pulse 80; Resp 16; Temp 98.7(TE); Pulse Ox 100% on R/A; ss ED Course: 16:17 Patient arrived in ED. rg4 16:20 Lidya Mcintosh FNP-C is PHCP. snw 16:20 Torsten Milton DO is Attending Physician. snw 17:08 Arm band placed on right wrist. ss 17:10 Triage completed. ss 18:27 Gabriela Molina, RN is Primary Nurse. iw Administered Medications: 18:27 Drug: Motrin (ibuprofen) 600 mg Route: PO; iw Outcome: 17:38 Discharge ordered by . rafa 18:27 Patient left the ED. iw Signatures: Lidya Mcintosh, [employer]-C [employer]-Csnw Gabriela Molina RN Krissy Madera RN RN ss Garcia, Rubi rg4
--- NOTE | 2022-03-26 17:40 | EDPHYS ---
Physician Documentation [facility] Name: Guy Sifuentes Age: 21 yrs Sex: Male : 2000 Arrival Date: 03/26/2022 Time: 16:17 Bed [id number] Private MD: ED Physician Torsten Milton HPI: 03/26 17:18 This 21 yrs old Male presents to ER via Ambulatory with complaints of Migraine.snw 17:18 Onset: The symptoms/episode began/occurred 1.5 year(s) ago, and became persistent. snw Associated signs and symptoms: Pertinent positives: The patient does not have any pertinent positive signs or symptoms associated with pediatric illness. The patient has experienced similar episodes in the past. The patient has not recently seen a physician. pt states he has had the same headache x 1.5yr. Historical: - Allergies: 17:10 No Known Allergies; ss - Home Meds: 17:10 None [Active]; ss - PMHx: 17:10 migraines; ss - PSHx: 17:10 None; ss - Immunization history:: Client reports receiving the 2nd dose of the Covid vaccine. - Social history:: Smoking status: Patient reports the use of cigarette tobacco products, denies chronic smoking, but will smoke occasionally, Patient uses street drugs, marijuana. ROS: 17:16 Constitutional: Negative for fever, chills, and weight loss, Eyes: Negative for injury, snw pain, redness, and discharge, ENT: Negative for injury, pain, and discharge, Neck: Negative for injury, pain, and swelling, Cardiovascular: Negative for chest pain, palpitations, and edema, Respiratory: Negative for shortness of breath, cough, wheezing, and pleuritic chest pain, Abdomen/GI: Negative for abdominal pain, nausea, vomiting, diarrhea, and constipation, Back: Negative for injury and pain, : Negative for injury, bleeding, discharge, and swelling, MS/Extremity: Negative for injury and deformity, Skin: Negative for injury, rash, and discoloration, Psych: Negative for depression, anxiety, suicide ideation, homicidal ideation, and hallucinations. 17:16 Neuro: Positive for headache. Exam: 17:16 Constitutional: This is a well developed, well nourished patient who is awake, alert, snw and in no acute distress. Head/Face: Normocephalic, atraumatic. Eyes: Pupils equal round and reactive to light, extra-ocular motions intact. Lids and lashes normal. Conjunctiva and sclera are non-icteric and not injected. Cornea within normal limits. Periorbital areas with no swelling, redness, or edema. ENT: Nares patent. No nasal discharge, no septal abnormalities noted. Tympanic membranes are normal and external auditory canals are clear. Oropharynx with no redness, swelling, or masses, exudates, or evidence of obstruction, uvula midline. Mucous membranes moist. Neck: Trachea midline, no thyromegaly or masses palpated, and no cervical lymphadenopathy. Supple, full range of motion without nuchal rigidity, or vertebral point tenderness. No Meningismus. Chest/axilla: Normal chest wall appearance and motion. Nontender with no deformity. No lesions are appreciated. Cardiovascular: Regular rate and rhythm with a normal S1 and S2. No gallops, murmurs, or rubs. Normal PMI, no JVD. No pulse deficits. Respiratory: Lungs have equal breath sounds bilaterally, clear to auscultation and percussion. No rales, rhonchi or wheezes noted. No increased work of breathing, no retractions or nasal flaring. Abdomen/GI: Soft, non-tender, with normal bowel sounds. No distension or tympany. No guarding or rebound. No evidence of tenderness throughout. Back: No spinal tenderness. No costovertebral tenderness. Full range of motion. Skin: Warm, dry with normal turgor. Normal color with no rashes, no lesions, and no evidence of cellulitis. MS/ Extremity: Pulses equal, no cyanosis. Neurovascular intact. Full, normal range of motion. Neuro: Awake and alert, GCS 15, oriented to person, place, time, and situation. Cranial nerves II-XII grossly intact. Motor strength 5/5 in all extremities. Sensory grossly intact. Cerebellar exam normal. Normal gait. Vital Signs: 17:08 BP 109 / 98; Pulse 80; Resp 16; Temp 98.7(TE); Pulse Ox 100% on R/A; ss MDM: 17:16 Patient medically screened. snw 17:18 Data reviewed: vital signs, nurses notes. Data interpreted: Pulse oximetry: on room air snw is 100 %. Interpretation: normal. Counseling: I had a detailed discussion with the patient and/or guardian regarding: the historical points, exam findings, and any diagnostic results supporting the discharge/admit diagnosis, the presence of at least one elevated blood pressure reading (>120/80) during this emergency department visit, the need for outpatient follow up, for definitive care, to return to the emergency department if symptoms worsen or persist or if there are any questions or concerns that arise at home, smoking cessation. Administered Medications: 18:27 Drug: Motrin (ibuprofen) 600 mg Route: PO; iw Disposition: 19:16 Co-signature as Attending Physician, Torsten Milton DO I was immediately available on-site ms3 in the Emergency Department for consultation in the care of the patient.. Disposition Summary: 03/26/22 17:38 Discharge Ordered Location: Home snw Condition: Stable snw Diagnosis - Headache snw - Cyclical vomiting, not intractable snw Followup: snw - With: Emergency Department - When: As needed - Reason: Worsening of condition Followup: snw - With: Private Physician - When: 5 - 6 days - Reason: Recheck today's complaints, Continuance of care, Re-evaluation by your physician Discharge Instructions: - Discharge Summary Sheet snw - General Headache Without Cause, [id number] snw Forms: - Medication Reconciliation Form snw - Thank You Letter snw - Antibiotic Education snw - Prescription Opioid Use snw - Work release form ss Prescriptions: - promethazine 25 mg Oral Tablet - take 1 tablet by ORAL route every 6 hours As needed; 20 tablet; Refills: 0, snw Product Selection Permitted Signatures: Lidya Mcintosh FNP-C MITER OPERATOR-Csnw Gabriela Molina, RN RN Krissy Aiken RN RN Torsten Milton DO DO ms3
[2022-03-26] MEDS ORDERED: IBUPROFEN 400 MG TAB ONE (18:23)
[2022-03-26] MEDS ORDERED: IBUPROFEN 200 MG TAB PO ONE (18:23)
[2022-03-26 18:32] VITALS: BP 109/98; TEMP 98.7; O2SAT 100
== END 2022-03-26 18:27 | disposition home or self-care (01) ==
LOC: ER 16:13
DX: R51.9 Headache, unspecified (principal); R11.15 Cyclical vomiting syndrome unrelated to migraine; F17.210 Nicotine dependence, cigarettes, uncomplicated
CPT/HCPCS: 99282

== ENCOUNTER 2022-03-30 04:49 | Emergency (ER) | payer BC ==
--- OUTSIDE RECORDS SUMMARY | 2022-03-30 04:53 | XMS REPORT | Continuity of Care Document ---
:2000 Author Organization [facility] t Address [address] [place] [address] Care Team Providers Name Role Phone Cayla Calderon Attending Clinician Domonique Dominique Attending Clinician [phone] DOMONIQUE DOMINIQUE Attending Clinician Unavailable Problems Condition Condition Condition Status Onset Resolution Last Treating Co mments Source Name Details Category Date Date Treatment Clinician Date SUCIDAL SUCIDAL Diagnosis Active 2020-042021-03-10 Memoria IDEATION/D IDEATION/D 05-03 22:06:00 l EPRESSION/ EPRESSION/ 00:00: He rmann VOMITTING VOMITTING 00 Active 03/03/2021 [facility] Headache Headache Problem Active 2021-03-17 Memoria (finding) (finding) 22:55:35 l Active [place] [facility] Major Major Problem Active 2021-03-17 Chris brina depression depression 22:55:35 l 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 Poisoning Poisoning Problem Active 2021-03-17 Memoria by drug by drug 22:55:35 l AND/OR AND/OR [place] medicinal medicinal substance substance (disorder) (disorder) Active Problem [facility] Suicidal Suicidal Problem Active 2021-03-17 Memoria thoughts thoughts 22:55:35 l (finding) (finding) Herm aurelia Active Problem 03/17/2021 Medical Group,[facility] Unintentio Unintenti Problem Active 2021-03-17 Memoria nal weight onal 22:55:35 l loss weight Marco (finding) loss (finding) Active Problem 03/17/2021 Medical Group,[facility] Vomiting Vomiting Problem Active 2021-03-17 Memoria (disorder) (disorder) 22:55:35 l Active Marco Problem 03/17/2021 Medical [facility] Rash of Rash of Problem Active 2021-03-17 Me moria genitalia genitalia 22:55:35 l (disorder) (disorder) He rmann Active Problem 03/17/2021 [facility] Tinea Tinea Problem Active 2021-03-17 Memor ia cruris cruris 22:55:35 l (disorder) (disorder) He rmann Active Problem 03/17/2021 Medical Group,[facility] Allergies, Adverse Reactions, Alerts This patient has no known allergies or adverse reactions. Social History Smoking Status Start Date Stop Date Source Social History [facility] Medications Ordered Filled Start Stop Current Ordering Indication Dosage Frequency Signature Comments Components Source Medication Medication Date Date Medication? Clinician (SIG) Name Name Ativan 2020-04 No Notes: Memoria 1-06 (Same as: l 23:44: Ativan) Marco Ativan 2020-04 No Notes: Memoria 1-06 (Same as: l 23:44: Ativan) Ketamine 2020-04 No 300 mg, 3 Chris brina 1-06 mL, Route: l 03:40: IM, Drug form: INJ, ONCE, Dosing Weight 68.182, kg, Start date: 03/03/21 22:40:00 CDT, Stop date: 03/03/21 22:40:00 CDT, 0 Ketamine 2020-04 No 300 mg, 3 Chris brina 1-06 mL, Route: l 03:40: IM, Drug form: INJ, ONCE, Dosing Weight 68.182, kg, Start date: 03/03/21 22:40:00 CDT, Stop date: 03/03/21 22:40:00 CDT, 0 Haldol 2020-04 No 5 mg, Memoria 1 Route: IM, l 01:27: ONCE, Dosing Weight 68.182, kg, Priority: STAT, Start date: 03/03/21 20:27:00 CDT, Stop date: 03/03/21 20:27:00 CDT Benadryl 2020-04 No 50 mg, Memoria 05-04 Route: IM, l 01:27: ONCE, Dosing Weight 68.182, kg, Priority: STAT, Start date: 03/03/21 20:27:00 CDT, Stop date: 03/03/21 20:27:00 CDT Haldol 2020-04 No 5 mg, Memoria 05-04 Route: IM, l 01:27: ONCE, Dosing Weight 68.182, kg, Priority: STAT, Start date: 03/03/21 20:27:00 CDT, Stop date: 03/03/21 20:27:00 CDT Benadryl 2020-04 No 50 mg, Memoria 05-04 Route: IM, l 01:27: ONCE, Dosing Weight 68.182, kg, Priority: STAT, Start date: 03/03/21 20:27:00 CDT, Stop date: 03/03/21 20:27:00 CDT Ativan 2020-04 No 1 mg, Memoria 05-03 Route: l 23:42: IVP, Drug Ettrick form: INJ, ONCE, Dosing Weight 68.182, kg, Priority: STAT, Start date: 03/03/21 18:42:00 CDT, Stop date: 03/03/21 18:42:00 CDT Ativan 2020-04 No 1 mg, Memoria 05-03 Route: l 23:42: IVP, Drug Marco 00 form: INJ, ONCE, Dosing Weight 68.182, kg, Priority: STAT, Start date: 03/03/21 18:42:00 CDT, Stop date: 03/03/21 18:42:00 CDT Ketoconazol 2019-04 Yes 1 appl, Mem oria e 20 MG/ML 2-16 TOP, l Topical 21:40: Daily, X 2 Herm aurelia Cream 00 week, # 15 gm, 1 Refill(s), Pharmacy: [facility][id number], 175.26, cm, 04/13/20 15:26:00 FREIGHT BOOKER, Height, 88.665, kg, 04/13/20 15:26:00 FREIGHT BOOKER, Weight Ketoconazol 2019- Yes 1 appl, Mem oria e 20 MG/ML 2-16 TOP, l Topical 21:40: Daily, X 2 Herm aurelia Cream 00 week, # 15 gm, 1 Refill(s), Pharmacy: [facility] #[id number], 175.26, cm, 04/13/20 15:26:00 FREIGHT BOOKER, Height, 88.665, kg, 04/13/20 15:26:00 FREIGHT BOOKER, Weight Vital Signs Vital Name Observation Time Observation Value Comments Source Temperature Oral (F) 2021-03-05 13:45:00 98.2 F [facility] Heart Rate 2021-03-05 13:45:00 [facility] [place] Respitory Rate 2021-03-05 13:45:00 Memori al [place] Systolic (mm Hg) 2021-03-05 13:45:00 Chris rial [place] Diastolic (mm Hg) 2021-03-05 13:45:00 Mem orial [place] Temperature Oral (F) 2021-03-05 10:00:00 98.6 F [facility] [place] Heart Rate 2021-03-05 10:00:00 [facility] [place] Respitory Rate 2021-03-05 10:00:00 Memori al [place] Systolic (mm Hg) 2021-03-05 10:00:00 Chris rial [place] Diastolic (mm Hg) 2021-03-05 10:00:00 Mem orial [place] Temperature Oral (F) 2021-03-05 05:00:00 98.3 F [facility] [place] Heart Rate 2021-03-05 05:00:00 [facility] [place] Respitory Rate 2021-03-05 05:00:00 Memori al [place] Systolic (mm Hg) 2021-03-05 05:00:00 Chris rial Marco Diastolic (mm Hg) 2021-03-05 05:00:00 Mem orial [place] Height 2021-03-03 21:51:00 167.64 cm [facility] BMI Calculated 2021-03-03 21:51:00 Memori al [place] Weight 2021-03-03 21:51:00 [facility] [place] Systolic (mm Hg) 2021-03-03 20:53:00 Chris rial Marco Diastolic (mm Hg) 2021-03-03 20:53:00 Mem orial [place] Heart Rate 2021-03-03 20:53:00 [facility] [place] Height 2021-03-03 20:53:00 167.64 cm [facility] [place] Weight 2021-03-03 20:53:00 [facility] [place] BMI Calculated 2021-03-03 20:53:00 Memori al [place] Diastolic (mm Hg) 2020-04-13 21:26:00 Mem orial [place] Heart Rate 2020-04-13 21:26:00 [facility] [place] Temperature Oral (F) 2020-04-13 21:26:00 97.2 F [facility] [place] Height 2020-04-13 21:26:00 175.26 cm [facility] [place] Weight 2020-04-13 21:26:00 [facility] BMI Calculated 2020-04-13 21:26:00 Memori al [place] Systolic (mm Hg) 2020-04-13 21:26:00 Chris rial [place] Procedures This patient has no known procedures. Encounters Start End Encounter Admission Attending Care Care Encounter Source Date/Time Date/Time Type Type Clinicians Facility Department ID 2021-03-15 2021-03-15 Ambulatory nullFlavo [facility] [id number] Memoria 17:45:00 17:45:00 Pre-Reg r Primary 03 [facility] 2021-03-15 2021-03-15 Ambulatory nullFlavo [facility] [id number] Memoria 17:45:00 17:45:00 Pre-Reg r Primary 03 [facility] 2021-03-15 2021-03-15 Outpatient MICHELLE MARTINEZ [id number] Memoria 11:45:00 11:45:00 03 [facility] 2021-03-15 2021-03-15 Outpatient wu, [facility] [id number] 11:45:00 11:45:00 Cayla Federico [facility] 2021-03-03 2021-03-05 Emergency nullFlavo [facility] [id number] Memoria 21:48:51 13:50:00 r E[place] 00 [facility] 2021-03-03 2021-03-05 Emergency nullFlavo [facility] [id number] Memoria 21:48:51 13:50:00 r [place] 00 [facility] 2021-03-03 2021-03-05 Outpatient Fadowole, [facility]PL [facility] [id number] 16:48:51 07:50:00 [facility] 2021-03-03 2021-03-05 Outpatient Fadowole, [facility]PL [facility] [id number] 16:48:51 07:50:00 [facility] 2021-03-03 2021-03-05 Emergency E FADOWOLE, MHBL MHBL [id number] MHBL 16:48:00 07:50:00 DOMONIQUE 2021-03-03 2021-03-04 Outpatient nullFlavo [facility] [id number] Memoria 20:45:00 04:59:59 r Primary 02 [facility] 2021-03-03 2021-03-04 Outpatient nullFlavo [facility] [id number] Memoria 20:45:00 04:59:59 r Primary 02 [facility] 2021-03-03 2021-03-03 Outpatient Ukwu, MHMG MG [id number] 15:45:00 23:59:59 Cayla 02 Beryl 2021-03-03 2021-03-03 Outpatient MHIE MHIE [id number] Memoria 15:45:00 15:45:00 02 [facility] 2020-12-16 2020-12-16 Outpatient MHIE MHIE [id number] Memoria 15:15:00 15:15:00 01 [facility] 2020-12-16 2020-12-16 Outpatient MHIE MHIE [id number] Memoria 15:15:00 15:15:00 01 [facility] 2020-04-13 2020-04-14 Outpatient nullFlavo [facility] [id number] Memoria 21:30:00 05:59:59 r Primary 00 [facility] 2020-04-13 2020-04-14 Outpatient nullFlavo [facility] [id number] Memoria 21:30:00 05:59:59 r Primary 00 [facility] 2020-04-13 2020-04-13 Outpatient Ukwu, MHMG MG [id number] 15:30:00 23:59:59 Cayla 00 Beryl 2020-04-13 2020-04-13 Outpatient [facility] [id number] Memoria 15:30:00 15:30:00 00 l Marco Results Test Description Test Time Test Comments Results Result Comments Source IMMUNOLOGY 2021-03-04 08:35:00 Test Item Value Reference Range Interpretation Comme nts Coronavirus (COVID-19) [place] (test code = Not Detected (03/04/21 3:35 AM) Coronavirus (COVID-19) [place]) [facility] [id number] 08:35:00 Test Item Value Reference Range Interpretation Comments Coronavirus (COVID-19) Not Detected (03/04/21 [place] (test code = 3:35 AM) Coronavirus (COVID-19) [place]) [facility] CenterannDR[facility] [id number] 23:30:00 Test Item Value Reference Range Interpretation Comments U Amph Scr (test code Negative *NA*(03/03/21 = U Amph Scr) 6:30 PM) [facility] HermannDRUG [id number] 23:30:00 Test Item Value Reference Range Interpretation Comments U Fabiola Scr (test code Negative *NA*(03/03/21 = U Fabiola Scr) 6:30 PM) [facility] HermannDRUG [id number] 23:30:00 Test Item Value Reference Range Interpretation Comments U Benzodiaz Scr (test Positive *ABN*(03/03/21 code = U Benzodiaz Scr) 6:30 PM) [facility] HermannDRUG [id number] 23:30:00 Test Item Value Reference Range Interpretation Comments U Cocaine Scr (test Negative *NA*(03/03/21 code = U Cocaine Scr) 6:30 PM) [facility] HermannDRUG [id number] 23:30:00 Test Item Value Reference Range Interpretation Comments U Cannab Scr (test Positive *ABN*(03/03/21 code = U Cannab Scr) 6:30 PM) [facility] [id number] 23:30:00 Test Item Value Reference Range Interpretation Comments U Opiate Scr (test Negative *NA*(03/03/21 code = U Opiate Scr) 6:30 PM) [facility] HermannDRUG [id number] 23:30:00 Test Item Value Reference Range Interpretation Comments U Phencyclidine Scr (test Negative code = U Phencyclidine *NA*(03/03/21 6:30 Scr) PM) [facility] [id number] 23:30:00 Test Item Value Reference Range Interpretation Comments UDS Note (test code = See Note (03/03/21 6:30 UDS Note) PM) [facility] [id number] 23:30:00 Test Item Value Reference Range Interpretation Comments U Amph Scr (test code Negative *NA*(03/03/21 = U Amph Scr) 6:30 PM) [facility] [id number] 23:30:00 Test Item Value Reference Range Interpretation Comments U Fabiola Scr (test code Negative *NA*(03/03/21 = U Fabiola Scr) 6:30 PM) [facility] [id number] 23:30:00 Test Item Value Reference Range Interpretation Comments U Benzodiaz Scr (test Positive *ABN*(03/03/21 code = U Benzodiaz Scr) 6:30 PM) [facility] [id number] 23:30:00 Test Item Value Reference Range Interpretation Comments U Cocaine Scr (test Negative *NA*(03/03/21 code = U Cocaine Scr) 6:30 PM) [facility] [id number] 23:30:00 Test Item Value Reference Range Interpretation Comments U Cannab Scr (test Positive *ABN*(03/03/21 code = U Cannab Scr) 6:30 PM) [facility] [id number] 23:30:00 Test Item Value Reference Range Interpretation Comments U Opiate Scr (test Negative *NA*(03/03/21 code = U Opiate Scr) 6:30 PM) [facility] [id number] 23:30:00 Test Item Value Reference Range Interpretation Comments U Phencyclidine Scr (test Negative code = U Phencyclidine *NA*(03/03/21 6:30 Scr) PM) [facility] [id number] 23:30:00 Test Item Value Reference Range Interpretation Comments UDS Note (test code = See Note (03/03/21 6:30 UDS Note) PM) [facility]antoannCHEM [id number] 22:36:00 Test Item Value Reference Range Interpretation Comments Glucose Lvl (test code = Glucose Lvl) 85 70-[address]-05 22:36:00 Test Item Value Reference Range Interpretation Comments BUN (test code = BUN) 9 7-[address]-05 22:36:00 Test Item Value Reference Range Interpretation Comments Creatinine Lvl (test code = Creatinine 0.87 0.50-1.40 Lvl) [address] 22:36:00 Test Item Value Reference Range Interpretation Comments Sodium Lvl (test code = Sodium Lvl) 139 135-145 [address]11-05 22:36:00 Test Item Value Reference Range Interpretation Comments Potassium Lvl (test code = Potassium 3.9 3.5-5.1 Lvl) [address] 22:36:00 Test Item Value Reference Range Interpretation Comments Chloride Lvl (test code = Chloride Lvl) 106 95-109 [place] [address]-05 22:36:00 Test Item Value Reference Range Interpretation Comments CO2 (test code = CO2) 30 24-[address] 22:36:00 Test Item Value Reference Range Interpretation Comments Calcium Lvl (test code = Calcium Lvl) 9.4 8.5-10.5 [place] [address]-05 22:36:00 Test Item Value Reference Range Interpretation Comments Total Protein (test code = Total 7.3 6.4-8.4 Protein) [place] [id number] 22:36:00 Test Item Value Reference Range Interpretation Comments Albumin Lvl (test code = Albumin Lvl) 4.1 3.5-5.[address] 22:36:00 Test Item Value Reference Range Interpretation Comments ALT (test code = ALT) 30 See_Comment [Auto mated message] The system which ge nerated this result transmit travis reference range : <=65. The reference range was not used to interpr et this result as vlad l/abnormal. [place] [address]-05 22:36:00 Test Item Value Reference Range Interpretation Comments AST (test code = AST) 16 See_Comment [Auto mated message] The system which ge nerated this result transmit travis reference range : <=37. The reference range was not used to interpr et this result as vlad l/abnormal. [address]11-05 22:36:00 Test Item Value Reference Range Interpretation Comments Alk Phos (test code = Alk Phos) 95 39-136 [address]11-05 22:36:00 Test Item Value Reference Range Interpretation Comments Bili Total (test code = Bili Total) 0.5 0.2-1.3 [place] [address]-05 22:36:00 Test Item Value Reference Range Interpretation Comments AGAP (test code = AGAP) 6.9 10.0-20.0 [place] [address]-05 22:36:00 Test Item Value Reference Range Interpretation Comments B/C Ratio (test code = B/C Ratio) 10 1 6-25 [place] [address]-05 22:36:00 Test Item Value Reference Range Interpretation Comments Globulin (test code = Globulin) 3.2 2.7-4.[address]11-05 22:36:00 Test Item Value Reference Range Interpretation Comments A/G Ratio (test code = A/G Ratio) 1.3 1 0.7-1.6 [place] [address]-05 22:36:00 Test Item Value Reference Range Interpretation Comments eGFR (test code = eGFR) [address]11-05 22:36:00 Test Item Value Reference Range Interpretation Comments WBC (test code = WBC) 6.1 3.7-10.[address]11-05 22:36:00 Test Item Value Reference Range Interpretation Comments RBC (test code = RBC) 4.42 4.70-6.[address]11-05 22:36:00 Test Item Value Reference Range Interpretation Comments Hgb (test code = Hgb) 13.6 14.0-18.0 [address]11-05 22:36:00 Test Item Value Reference Range Interpretation Comments Hct (test code = Hct) 40.0 42.0-54.0 [address]11-05 22:36:00 Test Item Value Reference Range Interpretation Comments MCV (test code = MCV) 90.4 80.0-94.0 [place] 945601-11-05 22:36:00 Test Item Value Reference Range Interpretation Comments MCH (test code = MCH) 30.8 pg 27.0-31.0 [place] 945601-11-05 22:36:00 Test Item Value Reference Range Interpretation Comments MCHC (test code = MCHC) 34.0 32.0-36.0 [facility] [id number] 22:36:00 Test Item Value Reference Range Interpretation Comments RDW (test code = RDW) 14.3 11.5-14.5 [place] 945601-11-05 22:36:00 Test Item Value Reference Range Interpretation Comments Platelet (test code = Platelet) 221 133-450 [facility] [id number] 22:36:00 Test Item Value Reference Range Interpretation Comments MPV (test code = MPV) 9.8 7.4-10.4 [place] 945601-11-05 22:36:00 Test Item Value Reference Range Interpretation Comments Segs (test code = Segs) 59.7 45.0-75.0 [place] 945601-11-05 22:36:00 Test Item Value Reference Range Interpretation Comments Lymphocytes (test code = Lymphocytes) 30.3 20.0-40.0 [facility] CenterJjzqwhlIUIJSBZNRD2405-66-20 22:36:00 Test Item Value Reference Range Interpretation Comments Monocytes (test code = Monocytes) 6.6 2.0-12.0 [place] 945601-11-05 22:36:00 Test Item Value Reference Range Interpretation Comments Eosinophils (test code = 2.9 See_Comment [A utomated message] The Eosinophils) system which ge nerated this result tra nsmitted reference range : <=4.0. The reference r heriberto was not used to int erpret this result as normal/abnormal . [place] 945601-11-05 22:36:00 Test Item Value Reference Range Interpretation Comments Basophils (test code = 0.5 See_Comment [Aut omated message] The Basophils) system which ge nerated this result tra nsmitted reference range : <=1.0. The reference r heriberto was not used to int erpret this result as normal/abnormal . [place] 945601-11-05 22:36:00 Test Item Value Reference Range Interpretation Comments Neutrophils # (test code = Neutrophils 3.7 1.5-8.1 #) [facility] [id number] 22:36:00 Test Item Value Reference Range Interpretation Comments Lymphocytes # (test code = Lymphocytes 1.8 1.0-5.5 #) [facility] [id number] 22:36:00 Test Item Value Reference Range Interpretation Comments Monocytes # (test code 0.4 See_Comment [Aut omated message] The = Monocytes #) system which generated this result tra nsmitted reference range : <=0.8. The reference r heriberto was not used to int erpret this result as normal/abnormal . [place] 945601-11-05 22:36:00 Test Item Value Reference Range Interpretation Comments Eosinophils # (test code 0.2 See_Comment [A utomated message] The = Eosinophils #) system whic h generated this result tra nsmitted reference range : <=0.5. The reference r heriberto was not used to int erpret this result as normal/abnormal . [facility] CenterHomadmrRMOCKEXALL6174-93-70 22:36:00 Test Item Value Reference Range Interpretation Comments Acetaminoph Lvl (test code = 4 10-20 Acetaminoph Lvl) [place] 655081-11-05 22:36:00 Test Item Value Reference Range Interpretation Comments Ethanol Lvl (test code = Ethanol Lvl) no gt [place] [id number] 22:36:00 Test Item Value Reference Range Interpretation Comments Etoh (%) (test code = Etoh (%)) no gt [place] 655081-11-05 22:36:00 Test Item Value Reference Range Interpretation Comments Salicylate Lvl (test no gt See_Comment [Autom ated message] The code = Salicylate Lvl) syste m which generated this result tra nsmitted reference range : <=30.0. The reference r heriberto was not used to int erpret this result as normal/abnormal . [facility] CenterNearpod [id number] 22:36:00 Test Item Value Reference Range Interpretation Comments Glucose Lvl (test code = Glucose Lvl) 85 70-99 [facility]11-05 22:36:00 Test Item Value Reference Range Interpretation Comments BUN (test code = BUN) 9 7-22 [place] [address]-05 22:36:00 Test Item Value Reference Range Interpretation Comments Creatinine Lvl (test code = Creatinine 0.87 0.50-1.40 Lvl) [place] [address]-05 22:36:00 Test Item Value Reference Range Interpretation Comments Sodium Lvl (test code = Sodium Lvl) 139 135-145 [address]11-05 22:36:00 Test Item Value Reference Range Interpretation Comments Potassium Lvl (test code = Potassium 3.9 3.5-5.1 Lvl) [address] 22:36:00 Test Item Value Reference Range Interpretation Comments Chloride Lvl (test code = Chloride Lvl) 106 95-109 [place] [address]-05 22:36:00 Test Item Value Reference Range Interpretation Comments CO2 (test code = CO2) 30 24-32 [address] 22:36:00 Test Item Value Reference Range Interpretation Comments Calcium Lvl (test code = Calcium Lvl) 9.4 8.5-10.5 [place] [address]-05 22:36:00 Test Item Value Reference Range Interpretation Comments Total Protein (test code = Total 7.3 6.4-8.4 Protein) [address] 22:36:00 Test Item Value Reference Range Interpretation Comments Albumin Lvl (test code = Albumin Lvl) 4.1 3.5-5.0 [place] [address]-05 22:36:00 Test Item Value Reference Range Interpretation Comments ALT (test code = ALT) 30 See_Comment [Auto mated message] The system which ge nerated this result transmit travis reference range : <=65. The reference range was not used to interpr et this result as vlad l/abnormal. [place] [address]-05 22:36:00 Test Item Value Reference Range Interpretation Comments AST (test code = AST) 16 See_Comment [Auto mated message] The system which ge nerated this result transmit travis reference range : <=37. The reference range was not used to interpr et this result as vlad l/abnormal. [place] [id number] 22:36:00 Test Item Value Reference Range Interpretation Comments Alk Phos (test code = Alk Phos) 95 39-136 [address]11-05 22:36:00 Test Item Value Reference Range Interpretation Comments Bili Total (test code = Bili Total) 0.5 0.2-1.[address]11-05 22:36:00 Test Item Value Reference Range Interpretation Comments AGAP (test code = AGAP) 6.9 10.0-20.0 [address]11-05 22:36:00 Test Item Value Reference Range Interpretation Comments B/C Ratio (test code = B/C Ratio) 10 1 6-[address]11-05 22:36:00 Test Item Value Reference Range Interpretation Comments Globulin (test code = Globulin) 3.2 2.7-4.2 [place] [id number] 22:36:00 Test Item Value Reference Range Interpretation Comments A/G Ratio (test code = A/G Ratio) 1.3 1 0.7-1.[address]11-05 22:36:00 Test Item Value Reference Range Interpretation Comments eGFR (test code = eGFR) 124 [place] [address]-11-05 22:36:00 Test Item Value Reference Range Interpretation Comments WBC (test code = WBC) 6.1 3.7-10.4 [place] [address]-11-05 22:36:00 Test Item Value Reference Range Interpretation Comments RBC (test code = RBC) 4.42 4.70-6.10 [place] [address]-11-05 22:36:00 Test Item Value Reference Range Interpretation Comments Hgb (test code = Hgb) 13.6 14.0-18.0 [place] [address]-11-05 22:36:00 Test Item Value Reference Range Interpretation Comments Hct (test code = Hct) 40.0 42.0-54.0 [address]11-05 22:36:00 Test Item Value Reference Range Interpretation Comments MCV (test code = MCV) 90.4 80.0-94.0 [place] [address]-11-05 22:36:00 Test Item Value Reference Range Interpretation Comments MCH (test code = MCH) 30.8 pg 27.0-31.0 [facility] C[id number] 22:36:00 Test Item Value Reference Range Interpretation Comments MCHC (test code = MCHC) 34.0 32.0-36.0 [facility] CenterWqxicypZSCULGXTZR0942-67-80 22:36:00 Test Item Value Reference Range Interpretation Comments RDW (test code = RDW) 14.3 11.5-14.5 [facility] CenterJyofrdvEHKEHLIQTZ8889-63-14 22:36:00 Test Item Value Reference Range Interpretation Comments Platelet (test code = Platelet) 221 133-450 [facility] [id number] 22:36:00 Test Item Value Reference Range Interpretation Comments MPV (test code = MPV) 9.8 7.4-10.4 [id number] 22:36:00 Test Item Value Reference Range Interpretation Comments Segs (test code = Segs) 59.7 45.0-75.0 [id number] 22:36:00 Test Item Value Reference Range Interpretation Comments Lymphocytes (test code = Lymphocytes) 30.3 20.0-40.0 [facility] [id number] 22:36:00 Test Item Value Reference Range Interpretation Comments Monocytes (test code = Monocytes) 6.6 2.0-12.0 [facility] [id number] 22:36:00 Test Item Value Reference Range Interpretation Comments Eosinophils (test code = 2.9 See_Comment [A utomated message] The Eosinophils) system which ge nerated this result tra nsmitted reference range : <=4.0. The reference r heriberto was not used to int erpret this result as normal/abnormal . [facility] [id number] 22:36:00 Test Item Value Reference Range Interpretation Comments Basophils (test code = 0.5 See_Comment [Aut omated message] The Basophils) system which ge nerated this result tra nsmitted reference range : <=1.0. The reference r heriberto was not used to int erpret this result as normal/abnormal . [facility] [id number] 22:36:00 Test Item Value Reference Range Interpretation Comments Neutrophils # (test code = Neutrophils 3.7 1.5-8.1 #) [facility] [id number] 22:36:00 Test Item Value Reference Range Interpretation Comments Lymphocytes # (test code = Lymphocytes 1.8 1.0-5.5 #) [facility] [id number] 22:36:00 Test Item Value Reference Range Interpretation Comments Monocytes # (test code 0.4 See_Comment [Aut omated message] The = Monocytes #) system which generated this result tra nsmitted reference range : <=0.8. The reference r heriberto was not used to int erpret this result as normal/abnormal . [place] [id number] 22:36:00 Test Item Value Reference Range Interpretation Comments Eosinophils # (test code 0.2 See_Comment [A utomated message] The = Eosinophils #) system whic h generated this result tra nsmitted reference range : <=0.5. The reference r heriberto was not used to int erpret this result as normal/abnormal . [id number] 22:36:00 Test Item Value Reference Range Interpretation Comments Acetaminoph Lvl (test code = 4 10-20 Acetaminoph Lvl) [place] [id number] 22:36:00 Test Item Value Reference Range Interpretation Comments Ethanol Lvl (test code = Ethanol Lvl) no gt [place] [id number] 22:36:00 Test Item Value Reference Range Interpretation Comments Etoh (%) (test code = Etoh (%)) no gt [facility] [id number] 22:36:00 Test Item Value Reference Range Interpretation Comments Salicylate Lvl (test no gt See_Comment [Autom ated message] The code = Salicylate Lvl) syste m which generated this result tra nsmitted reference range : <=30.0. The reference r heriberto was not used to int erpret this result as normal/abnormal . [facility]
[2022-03-30] MEDS ORDERED: KETOROLAC 30 MG/ML INJ ONE (05:19)
--- NOTE | 2022-03-30 05:54 | EDPHYS ---
Physician Documentation [facility] Name: Guy Sifuentes Age: 21 yrs Sex: Male : 2000 Arrival Date: 03/30/2022 Time: 05:03 Bed 5 Private MD: ED Physician Torsten Milton HPI: 03/30 05:10 This 21 yrs old Male presents to ER via Unassigned with complaints of Headache.ms3 05:10 The patient complains of pain to the Right parietal . The patient describes the ms3 headache as a pressure. Onset: The symptoms/episode began/occurred 2 month(s) ago. Associated signs and symptoms: Pertinent negatives: nausea, vomiting. Severity of symptoms: At its worst the pain was moderate, in the emergency department the pain is unchanged, a " 5" out of "10". Headache History: The patient has had previous headaches and this one is similar to previous episodes. The symptoms are alleviated by nothing. the symptoms are aggravated by nothing. Historical: - Allergies: 05:15 No Known Allergies; kl - Home Meds: 05:15 None [Active]; kl - PMHx: 05:15 Migraines; kl - Immunization history:: Adult Immunizations not up to date. - Social history:: Smoking status: Patient denies any tobacco usage or history of. ROS: 05:10 Constitutional: Negative for fever, and chills. Neck: Negative for injury, pain, and ms3 swelling, Cardiovascular: Negative for chest pain, and palpitations. Respiratory: Negative for shortness of breath, cough, wheezing, and pleuritic chest pain, Abdomen/GI: Negative for abdominal pain, nausea, vomiting, diarrhea, and constipation, MS/Extremity: Negative for injury and deformity. 05:10 Neuro: Positive for headache. 05:10 All other systems are negative. Exam: 05:13 Constitutional: This is a well developed, well nourished patient who is awake, alert, ms3 and in no acute distress. Head/Face: Normocephalic, atraumatic. Eyes: Pupils equal round and reactive to light, extra-ocular motions intact. Lids and lashes normal. Conjunctiva and sclera are non-icteric and not injected. Periorbital areas with no swelling, redness, or edema. Neck: Trachea midline, no cervical lymphadenopathy. Supple, full range of motion without nuchal rigidity, or vertebral point tenderness. No Meningismus. Chest/axilla: Normal chest wall appearance and motion. Nontender with no deformity. Cardiovascular: Regular rate and rhythm with a normal S1 and S2. No gallops, murmurs, or rubs. Normal PMI, no JVD. No pulse deficits. Respiratory: Lungs have equal breath sounds bilaterally, clear to auscultation and percussion. No rales, rhonchi or wheezes noted. No increased work of breathing, no retractions or nasal flaring. Abdomen/GI: Soft, non-tender, with normal bowel sounds. No distension or tympany. No guarding or rebound. No evidence of tenderness throughout. Skin: Warm, dry with normal turgor. Normal color with no rashes, no lesions, and no evidence of cellulitis. MS/ Extremity: Pulses equal, no cyanosis. Neurovascular intact. Full, normal range of motion. Neuro: Awake and alert, GCS 15, oriented to person, place, time, and situation. Cranial nerves II-XII grossly intact. Motor strength 5/5 in all extremities. Sensory grossly intact. Cerebellar exam normal. Normal gait. Vital Signs: 05:12 BP 136 / 91; Pulse 82; Resp 16; Temp 97.6(O); Pulse Ox 100% on R/A; Weight 72.57 kg kl (R); Height 5 ft. 9 in. (175.26 cm); Pain 6/10; 05:33 BP 112 / 82; Pulse 68; Pulse Ox 99% on R/A; kl 05:57 BP 128 / 85; Pulse 64; Resp 16; Pulse Ox 100% on R/A; Pain 4/10; kl 05:12 Body Mass Index 23.63 (72.57 kg, 175.26 cm) MDM: 05:15 Patient medically screened. ms3 05:54 ED course: Patient's headache improved, patient to follow-up with Dr. Moreno in 2 to ms3 3 days. Patient understands agrees with plan. All questions were answered. Return precautions discussed include worsening symptoms, or any other concerns. On reevaluation patient's headache is improved, patient is alert and oriented x4, in no apparent distress, nontoxic, ambulatory in emergency department, speaking full sentences. 05:54 Data reviewed: vital signs, nurses notes, and as a result, I will discharge patient. ms3 Counseling: I had a detailed discussion with the patient and/or guardian regarding: the historical points, exam findings, and any diagnostic results supporting the discharge/admit diagnosis, the need for outpatient follow up, to return to the emergency department if symptoms worsen or persist or if there are any questions or concerns that arise at home. Administered Medications: 05:20 Drug: Ketorolac 30 mg Route: IM; Site: right ventrogluteal; kl 05:57 Follow up: Response: No adverse reaction; Pain is decreased kl Disposition Summary: 03/30/22 05:53 Discharge Ordered Location: Home ms3 Condition: Stable ms3 Diagnosis - Headache ms3 Followup: ms3 - With: Andrea Moreno MD - When: 2 - 3 days - Reason: Recheck today's complaints Discharge Instructions: - Discharge Summary Sheet ms3 - Migraine Headache ms3 Forms: - Medication Reconciliation Form ms3 - Thank You Letter ms3 - Antibiotic Education ms3 - Prescription Opioid Use ms3 Prescriptions: - Ibuprofen 600 mg Oral Tablet - take 1 tablet by ORAL route every 6 hours As needed take with food; 30 tablet; ms3 Refills: 0, Product Selection Permitted Signatures: Carmen Gomes RN RN Torsten Schultz DO DO ms3
--- NOTE | 2022-03-30 05:54 | ER ---
Nurse's Notes [facility] Name: Guy Sifuent[facility] Age: 21 yrs Sex: Male : 2000 Arrival Date: 03/30/2022 Time: 05:03 Bed 5 Private MD: Diagnosis: Headache Presentation: 03/30 05:12 Chief complaint: Patient states: migraine of and on x 2 months. Coronavirus screen: Vaccine status: Patient reports being unvaccinated. Ebola Screen: Patient negative for fever greater than or equal to 101.5 degrees Fahrenheit, and additional compatible Ebola Virus Disease symptoms. Initial Sepsis Screen: Does the patient meet any 2 criteria? No. Patient's initial sepsis screen is negative. Does the patient have a suspected source of infection? No. Patient's initial sepsis screen is negative. Risk Assessment: Do you want to hurt yourself or someone else? Patient reports no desire to harm self or others. 05:12 Method Of Arrival: Ambulatory 05:12 Acuity: ZULEIKA 4 05:58 Onset of symptoms was December 28, 2021. Triage Assessment: 05:15 Headache History: The patient has had previous headaches and this one is similar to previous episodes. General: Appears in no apparent distress. comfortable, Behavior is calm, cooperative. Pain: Pain currently is 6 out of 10 on a pain scale. Pain began Also complains of sleeplessness. Neuro: No deficits noted. Level of Consciousness is awake, alert, obeys commands, Oriented to person, place, time, situation, Insurance Clerk are equal bilaterally Moves all extremities. Gait is steady, Speech is normal, Facial symmetry appears normal, Pupils are PERRLA. Historical: - Allergies: 05:15 No Known Allergies; - Home Meds: 05:15 None [Active]; - PMHx: 05:15 Migraines; - Immunization history:: Adult Immunizations not up to date. - Social history:: Smoking status: Patient denies any tobacco usage or history of. Screenin:16 Abuse screen: Denies threats or abuse. Nutritional screening: No deficits noted. Tuberculosis screening: No symptoms or risk factors identified. Fall Risk None identified. Assessment: 05:33 Reassessment: Patient appears in no apparent distress at this time. Patient and/or family updated on plan of care and expected duration. Pain level reassessed. Patient is alert, oriented x 3, equal unlabored respirations, skin warm/dry/pink. Vital Signs: 05:12 BP 136 / 91; Pulse 82; Resp 16; Temp 97.6(O); Pulse Ox 100% on R/A; Weight 72.57 kg kl (R); Height 5 ft. 9 in. (175.26 cm); Pain 6/10; 05:33 BP 112 / 82; Pulse 68; Pulse Ox 99% on R/A; kl 05:57 BP 128 / 85; Pulse 64; Resp 16; Pulse Ox 100% on R/A; Pain 4/10; kl 05:12 Body Mass Index 23.63 (72.57 kg, 175.26 cm) ED Course: 05:03 Patient arrived in ED. [email or web address] 05:06 Torsten Milton DO is Attending Physician. ms3 05:15 Triage completed. kl 05:34 Patient has correct armband on for positive identification. kl 05:34 No provider procedures requiring assistance completed. Patient did not have IV access kl during this emergency room visit. 05:52 Andrea Moreno MD is Referral Physician. ms3 Administered Medications: 05:20 Drug: Ketorolac 30 mg Route: IM; Site: right ventrogluteal; kl 05:57 Follow up: Response: No adverse reaction; Pain is decreased Medication: 05:34 VIS not applicable for this client. Outcome: 05:53 Discharge ordered by . ms3 05:58 Discharged to home ambulatory. kl 05:58 Condition: improved 05:58 Discharge instructions given to patient, Instructed on discharge instructions, follow up and referral plans. medication usage, Demonstrated understanding of instructions, follow-up care, medications, Prescriptions given X 1. 05:59 Patient left the ED. Signatures: Carmen Gomes RN Torsten Frausto DO DO ms3 Cayla Jean [email or web address]
[2022-03-30 06:03] VITALS: TEMP 97.6
[2022-03-30 06:05] VITALS: BP 128/85; O2SAT 100
== END 2022-03-30 05:59 | disposition home or self-care (01) ==
LOC: ER 04:49
DX: R51.9 Headache, unspecified (principal)
CPT/HCPCS: 96372; 99283

== ENCOUNTER 2022-04-02 04:53 | Emergency (ER) | payer BC ==
--- OUTSIDE RECORDS SUMMARY | 2022-04-02 04:58 | XMS REPORT | Continuity of Care Document ---
:2000 Author Organization [facility] t Address [address] [place] [address] Care Team Providers Name Role Phone Cayla Calderon Attending Clinician Domonique Dominique Attending Clinician [phone] DOMONIQUE DOMINIQUE Attending Clinician Unavailable Problems Condition Condition Condition Status Onset Resolution Last Treating Co mments Source Name Details Category Date Date Treatment Clinician Date SUCIDAL SUCIDAL Diagnosis Active 2020-042021-03-10 Memoria IDEATION/D IDEATION/D 05-03 22:06:00 l EPRESSION/ EPRESSION/ 00:00: [place] VOMITTING VOMITTING 00 Active 03/03/2021 [facility] Headache Headache Problem Active 2021-03-17 Memoria (finding) (finding) 22:55:35 l Active [place] 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 Poisoning Poisoning Problem Active 2021-03-17 Memoria by drug by drug 22:55:35 l AND/OR AND/OR [place] medicinal medicinal substance substance (disorder) (disorder) Active Problem [facility]/17/[facility] Suicidal Suicidal Problem Active 2021-03-17 Memoria thoughts thoughts 22:55:35 l (finding) (finding) Herm aurelia Active Problem 03/17/2021 Medical Group,[facility] Unintentio Unintenti Problem Active 2021-03-17 Memoria nal weight onal 22:55:35 l loss weight Marco (finding) loss (finding) Active Problem 03/17/2021 Medical Group,[facility] Vomiting Vomiting Problem Active 2021-03-17 Memoria (disorder) (disorder) 22:55:35 l Active [place] Problem 03/17/2021 Medical [facility] Rash of Rash of Problem Active 2021-03-17 Me moria genitalia genitalia 22:55:35 l (disorder) (disorder) He rmann Active Problem 03/17/2021 [facility] Tinea Tinea Problem Active 2021-03-17 Memor ia cruris cruris 22:55:35 l (disorder) (disorder) He rmann Active Problem 03/17/2021 Medical Group,[facility] Allergies, Adverse Reactions, Alerts This patient has no known allergies or adverse reactions. Social History Smoking Status Start Date Stop Date Source Social History [facility] Medications Ordered Filled Start Stop Current Ordering Indication Dosage Frequency Signature Comments Components Source Medication Medication Date Date Medication? Clinician (SIG) Name Name Ativan 2020-04 No Notes: Memoria 1-06 (Same as: l 23:44: Ativan) [place] 00 Ativan 2020-04 No Notes: Memoria 1-06 (Same as: l 23:44: Ativan) [place] 00 Ativan 2020-04 No Notes: Memoria 1-06 (Same as: l 23:44: Ativan) [place] 00 Ketamine 2020-04 No 300 mg, 3 Chris [...] Stop date: 03/03/21 22:40:00 CDT, 0 Ketamine 2021-1 No 300 mg, 3 Chris brina 1-06 mL, Route: l 03:40: IM, Drug form: INJ, ONCE, Dosing Weight 68.182, kg, Start date: 03/03/21 22:40:00 CDT, Stop date: 03/03/21 22:40:00 CDT, 0 Haldol 2020-04 No 5 mg, Memoria 1-06 Route: IM, l 01:27: ONCE, Dosing Weight 68.182, kg, Priority: STAT, Start date: 03/03/21 20:27:00 CDT, Stop date: 03/03/21 20:27:00 CDT Benadryl 2020-04 No 50 mg, Memoria 1-06 Route: IM, l 01:27: ONCE, Dosing Weight 68.182, kg, Priority: STAT, Start date: 03/03/21 20:27:00 CDT, Stop date: 03/03/21 20:27:00 CDT Haldol 2020-04 No 5 mg, Memoria 1-06 Route: IM, l 01:27: ONCE, Dosing Weight 68.182, kg, Priority: STAT, Start date: 03/03/21 20:27:00 CDT, Stop date: 03/03/21 20:27:00 CDT Benadryl 2020-04 No 50 mg, Memoria 1-06 Route: IM, l 01:27: ONCE, Dosing Weight 68.182, kg, Priority: STAT, Start date: 03/03/21 20:27:00 CDT, Stop date: 03/03/21 20:27:00 CDT Haldol 2020-04 No 5 mg, Memoria 1-06 Route: IM, l 01:27: ONCE, Dosing Weight 68.182, kg, Priority: STAT, Start date: 03/03/21 20:27:00 CDT, Stop date: 03/03/21 20:27:00 CDT Benadryl 1 No 50 mg, Memoria 1-06 Route: IM, l 01:27: ONCE, Dosing Weight 68.182, kg, Priority: STAT, Start date: 03/03/21 20:27:00 CDT, Stop date: 03/03/21 20:27:00 CDT Ativan 2020-04 No 1 mg, Memoria 1-05 Route: l 23:42: IVP, Drug Marco 00 form: INJ, ONCE, Dosing Weight 68.182, kg, Priority: STAT, Start date: 03/03/21 18:42:00 CDT, Stop date: 03/03/21 18:42:00 CDT Ativan 2020-04 No 1 mg, Memoria 1-05 Route: l 23:42: IVP, Drug [place] 00 form: INJ, ONCE, Dosing Weight 68.182, kg, Priority: STAT, Start date: 03/03/21 18:42:00 CDT, Stop date: 03/03/21 18:42:00 CDT Ativan 2020-04 No 1 mg, Memoria 1- Route: l 23:42: IVP, Drug [place] 00 form: INJ, ONCE, Dosing Weight 68.182, kg, Priority: STAT, Start date: 03/03/21 18:42:00 CDT, Stop date: 03/03/21 18:42:00 CDT Ketoconazol 2019-04 Yes 1 appl, Mem oria e 20 MG/ML 2-16 TOP, l Topical 21:40: Daily, X 2 Herm aurelia Cream 00 week, # 15 gm, 1 Refill(s), Pharmacy: [facility] #[id number], 175.26, cm, 04/13/20 15:26:00 [employer], Height, 88.665, kg, 04/13/20 15:26:00 [employer], Weight Ketoconazol 2019-04 Yes 1 appl, Mem oria e 20 MG/ML 2-16 TOP, l Topical 21:40: Daily, X 2 Herm aurelia Cream 00 week, # 15 gm, 1 Refill(s), Pharmacy: [facility] #[id number], 175.26, cm, 04/13/20 15:26:00 [employer]IST, Height, 88.665, kg, 04/13/20 15:26:00 [employer]IST, Weight Ketoconazol 2019-04 Yes 1 appl, Mem oria e 20 MG/ML 2-16 TOP, l Topical 21:40: Daily, X 2 Herm aurelia Cream 00 week, # 15 gm, 1 Refill(s), Pharmacy: [facility] #[id number], 175.26, cm, 04/13/20 15:26:00 [employer]IST, Height, 88.665, kg, 04/13/20 15:26:00 RE[employer]IST, Weight Vital Signs Vital Name Observation Time Observation Value Comments Source Temperature Oral (F) 2021-03-05 13:45:00 98.2 F [facility] [place] Heart Rate 2021-03-05 13:45:00 [facility] [place] Respitory Rate 2021-03-05 13:45:00 Memori al [place] Systolic (mm Hg) 2021-03-05 13:45:00 Chris rial [place] Diastolic (mm Hg) 2021-03-05 13:45:00 Mem orial [place] Temperature Oral (F) 2021-03-05 10:00:00 98.6 F [facility] [place] Heart Rate 2021-03-05 10:00:00 [facility] [place] Respitory Rate 2021-03-05 10:00:00 Memori al [place] Systolic (mm Hg) 2021-03-05 10:00:00 Chris rial [place] Diastolic (mm Hg) 2021-03-05 10:00:00 Mem orial [place] Temperature Oral (F) 2021-03-05 05:00:00 98.3 F [facility] [place] Heart Rate 2021-03-05 05:00:00 [facility] [place] Respitory Rate 2021-03-05 05:00:00 Memori al [place] Systolic (mm Hg) 2021-03-05 05:00:00 Chris rial [place] Diastolic (mm Hg) 2021-03-05 05:00:00 Mem orial [place] Height 2021-03-03 21:51:00 167.64 cm [facility] [place] BMI Calculated 2021-03-03 21:51:00 Memori al [place] Weight 2021-03-03 21:51:00 [facility] [place] Systolic (mm Hg) 2021-03-03 20:53:00 Chris rial [place] Diastolic (mm Hg) 2021-03-03 20:53:00 Mem orial [place] Heart Rate 2021-03-03 20:53:00 [facility] [place] Height 2021-03-03 20:53:00 167.64 cm [facility] [place] Weight 2021-03-03 20:53:00 [facility] [place] BMI Calculated 2021-03-03 20:53:00 Memori al [place] Temperature Oral (F) 2020-04-13 21:26:00 97.2 F [facility] Marco Height 2020-04-13 21:26:00 175.26 cm [facility] Marco Weight 2020-04-13 21:26:00 [facility] [place] BMI Calculated 2020-04-13 21:26:00 Memori al [place] Systolic (mm Hg) 2020-04-13 21:26:00 Chris rial [place] Diastolic (mm Hg) 2020-04-13 21:26:00 Mem orial [place] Heart Rate 2020-04-13 21:26:00 [facility] [place] Procedures This patient has no known procedures. Encounters Start End Encounter Admission Attending Care Care Encounter Source Date/Time Date/Time Type Type Clinicians Facility Department ID 2021-03-15 2021-03-15 Ambulatory nullFlavo [facility] [id number] Memoria 17:45:00 17:45:00 Pre-Reg r Primary 03 [facility] 2021-03-15 2021-03-15 Ambulatory nullFlavo [facility] [id number] Memoria 17:45:00 17:45:00 Pre-Reg r Primary 03 [facility] 2021-03-15 2021-03-15 Outpatient MICHELLE MARTINEZ [id number] Memoria 11:45:00 11:45:00 03 [facility] 2021-03-15 2021-03-15 Outpatient Kvng, [facility] [id number] 11:45:00 11:45:00 Cayla 03 [place] 2021-03-03 2021-03-05 Emergency nullFlavo [facility] [id number] Memoria 21:48:51 13:50:00 r [place] 00 [facility] 2021-03-03 2021-03-05 Emergency nullFlavo [facility] [id number] Memoria 21:48:51 13:50:00 r [place] 00 [facility] 2021-03-03 2021-03-05 Outpatient CHEY Dominique [id number] 16:48:51 07:50:00 Domonique 00 [place] 2021-03-03 2021-03-05 Outpatient Fadowole, [facility]PL MHPL [id number] 16:48:51 07:50:00 Domonique 00 [place] 2021-03-03 2021-03-05 Emergency E FADOWOLE, MHBL MHBL [id number] MHBL 16:48:00 07:50:00 DOMONIQUE 2021-03-03 2021-03-04 Outpatient nullFlavo [facility] [id number] Memoria 20:45:00 04:59:59 r Primary 02 [facility] 2021-03-03 2021-03-04 [place] [id number] Memoria 20:45:00 04:59:59 r Primary 02 [facility] 2021-03-03 2021-03-03 Outpatient Ukwu, MG MG [id number] 15:45:00 23:59:59 Cayla 02 [place] 2021-03-03 2021-03-03 Outpatient MHIE MHIE [id number] Memoria 15:45:00 15:45:00 02 [facility] 2020-12-16 2020-12-16 Outpatient MHIE MHIE [id number] Memoria 15:15:00 15:15:00 01 [facility] 2020-12-16 2020-12-16 Outpatient MHIE MHIE [id number] Memoria 15:15:00 15:15:00 01 [facility] 2020-04-13 2020-04-14 [place] [id number] Memoria 21:30:00 05:59:59 r Primary 00 [facility] 2020-04-13 2020-04-14 [place] [id number] Memoria 21:30:00 05:59:59 r Primary 00 [facility] 2020-04-13 2020-04-13 Outpatient Ukwu, MG MG [id number] 15:30:00 23:59:59 Cayla 00 [facility] 2020-04-13 2020-04-13 Outpatient MHIE MHIE [id number] Memoria 15:30:00 15:30:00 00 [facility] Results Test Description Test Time Test Comments Results Result Comments Source [facility] 2021-03-04 08:35:00 Test Item Value Reference Range Interpretation Comme nts Coronavirus (COVID-19) [place] (test code = Not Detected (03/04/21 3:35 AM) Coronavirus (COVID-19) [place]) [id number] 08:35:00 Test Item Value Reference Range Interpretation Comments Coronavirus (COVID-19) Not Detected (03/04/21 [place] (test code = 3:35 AM) Coronavirus (COVID-19) [place]) [facility] [id number] 08:35:00 Test Item Value Reference Range Interpretation Comments Coronavirus (COVID-19) Not Detected (03/04/21 [place] (test code = 3:35 AM) Coronavirus (COVID-19) [place]) [facility]2021-11-05 23:30:00 Test Item Value Reference Range Interpretation Comments U Amph Scr (test code Negative *NA*(03/03/21 = U Amph Scr) 6:30 PM) [facility]2021-11-05 23:30:00 Test Item Value Reference Range Interpretation Comments U Fabiola Scr (test code Negative *NA*(03/03/21 = U Fabiola Scr) 6:30 PM) [id number] 23:30:00 Test Item Value Reference Range Interpretation Comments U Benzodiaz Scr (test Positive *ABN*(03/03/21 code = U Benzodiaz Scr) 6:30 PM) [facility]2021-11-05 23:30:00 Test Item Value Reference Range Interpretation Comments U Amph Scr (test code Negative *NA*(03/03/21 = U Amph Scr) 6:30 PM) [facility]2021-11-05 23:30:00 Test Item Value Reference Range Interpretation Comments U Cocaine Scr (test Negative *NA*(03/03/21 code = U Cocaine Scr) 6:30 PM) [facility]2021-11-05 23:30:00 Test Item Value Reference Range Interpretation Comments U Fabiola Scr (test code Negative *NA*(03/03/21 = U Fabiola Scr) 6:30 PM) [facility]2021-11-05 23:30:00 Test Item Value Reference Range Interpretation Comments U Benzodiaz Scr (test Positive *ABN*(03/03/21 code = U Benzodiaz Scr) 6:30 PM) [facility] [id number] 23:30:00 Test Item Value Reference Range Interpretation Comments U Cocaine Scr (test Negative *NA*(03/03/21 code = U Cocaine Scr) 6:30 PM) [facility] [id number] 23:30:00 Test Item Value Reference Range Interpretation Comments U Cannab Scr (test Positive *ABN*(03/03/21 code = U Cannab Scr) 6:30 PM) [facility] [id number] 23:30:00 Test Item Value Reference Range Interpretation Comments U Opiate Scr (test Negative *NA*(03/03/21 code = U Opiate Scr) 6:30 PM) [facility] [id number] 23:30:00 Test Item Value Reference Range Interpretation Comments U Phencyclidine Scr (test Negative code = U Phencyclidine *NA*(03/03/21 6:30 Scr) PM) [facility] [id number] 23:30:00 Test Item Value Reference Range Interpretation Comments UDS Note (test code = See Note (03/03/21 6:30 UDS Note) PM) [facility] [id number] 23:30:00 Test Item Value Reference Range Interpretation Comments U Cannab Scr (test Positive *ABN*(03/03/21 code = U Cannab Scr) 6:30 PM) [facility] [id number] 23:30:00 Test Item Value Reference Range Interpretation Comments U Opiate Scr (test Negative *NA*(03/03/21 code = U Opiate Scr) 6:30 PM) [facility] [id number] 23:30:00 Test Item Value Reference Range Interpretation Comments U Phencyclidine Scr (test Negative code = U Phencyclidine *NA*(03/03/21 6:30 Scr) PM) [facility] [id number] 23:30:00 Test Item Value Reference Range Interpretation Comments UDS Note (test code = See Note (03/03/21 6:30 UDS Note) PM) [facility] [id number] 23:30:00 Test Item Value Reference Range Interpretation Comments U Amph Scr (test code Negative *NA*(03/03/21 = U Amph Scr) 6:30 PM) [facility] [id number] 23:30:00 Test Item Value Reference Range Interpretation Comments U Fabiola Scr (test code Negative *NA*(03/03/21 = U Fabiola Scr) 6:30 PM) [facility] [id number] 23:30:00 Test Item Value Reference Range Interpretation Comments U Benzodiaz Scr (test Positive *ABN*(03/03/21 code = U Benzodiaz Scr) 6:30 PM) [facility] [id number] 23:30:00 Test Item Value Reference Range Interpretation Comments U Cocaine Scr (test Negative *NA*(03/03/21 code = U Cocaine Scr) 6:30 PM) [facility] [id number] 23:30:00 Test Item Value Reference Range Interpretation Comments U Cannab Scr (test Positive *ABN*(03/03/21 code = U Cannab Scr) 6:30 PM) [facility] [id number] 23:30:00 Test Item Value Reference Range Interpretation Comments U Opiate Scr (test Negative *NA*(03/03/21 code = U Opiate Scr) 6:30 PM) [facility] [id number] 23:30:00 Test Item Value Reference Range Interpretation Comments U Phencyclidine Scr (test Negative code = U Phencyclidine *NA*(03/03/21 6:30 Scr) PM) [facility] [id number] 23:30:00 Test Item Value Reference Range Interpretation Comments UDS Note (test code = See Note (03/03/21 6:30 UDS Note) PM) [id number] 22:36:00 Test Item Value Reference Range Interpretation Comments RDW (test code = RDW) 14.3 11.5-14.5 [facility] [id number] 22:36:00 Test Item Value Reference Range Interpretation Comments Platelet (test code = Platelet) 221 133-450 [facility] [id number] 22:36:00 Test Item Value Reference Range Interpretation Comments MPV (test code = MPV) 9.8 7.4-10.4 [facility] [id number] 22:36:00 Test Item Value Reference Range Interpretation Comments Segs (test code = Segs) 59.7 45.0-75.[address]11-05 22:36:00 Test Item Value Reference Range Interpretation Comments Lymphocytes (test code = Lymphocytes) 30.3 20.0-40.[address]11-05 22:36:00 Test Item Value Reference Range Interpretation Comments Monocytes (test code = Monocytes) 6.6 2.0-12.0 [place] [address]-11-05 22:36:00 Test Item Value Reference Range Interpretation Comments Eosinophils (test code = 2.9 See_Comment [A utomated message] The Eosinophils) system which ge nerated this result tra nsmitted reference range : <=4.0. The reference r heriberto was not used to int erpret this result as normal/abnormal . [address]11-05 22:36:00 Test Item Value Reference Range Interpretation Comments Basophils (test code = 0.5 See_Comment [Aut omated message] The Basophils) system which ge nerated this result tra nsmitted reference range : <=1.0. The reference r heriberto was not used to int erpret this result as normal/abnormal . [address]11-05 22:36:00 Test Item Value Reference Range Interpretation Comments Neutrophils # (test code = Neutrophils 3.7 1.5-8.1 #) [address]11-05 22:36:00 Test Item Value Reference Range Interpretation Comments Lymphocytes # (test code = Lymphocytes 1.8 1.0-5.5 #) [address]11-05 22:36:00 Test Item Value Reference Range Interpretation Comments Monocytes # (test code 0.4 See_Comment [Aut omated message] The = Monocytes #) system which generated this result tra nsmitted reference range : <=0.8. The reference r heriberto was not used to int erpret this result as normal/abnormal . [place] [address]-11-05 22:36:00 Test Item Value Reference Range Interpretation Comments Eosinophils # (test code 0.2 See_Comment [A utomated message] The = Eosinophils #) system [facility] h generated this result tra nsmitted reference range : <=0.5. The reference r heriberto was not used to int erpret this result as normal/abnormal . [place] [id number] 22:36:00 Test Item Value Reference Range Interpretation Comments Acetaminoph Lvl (test code = 4 10-20 Acetaminoph Lvl) [place] [id number] 22:36:00 Test Item Value Reference Range Interpretation Comments Ethanol Lvl (test code = Ethanol Lvl) no gt [place] [id number] 22:36:00 Test Item Value Reference Range Interpretation Comments Etoh (%) (test code = Etoh (%)) no gt [place] [id number] 22:36:00 Test Item Value Reference Range Interpretation Comments Salicylate Lvl (test no gt See_Comment [Autom ated message] The code = Salicylate Lvl) syste m which generated this result tra nsmitted reference range : <=30.0. The reference r heriberto was not used to int erpret this result as normal/abnormal . [place] 159921-11-05 22:36:00 Test Item Value Reference Range Interpretation Comments Glucose Lvl (test code = Glucose Lvl) 85 70-99 [place] 159921-11-05 22:36:00 Test Item Value Reference Range Interpretation Comments BUN (test code = BUN) 9 7-22 [place] 159921-11-05 22:36:00 Test Item Value Reference Range Interpretation Comments Creatinine Lvl (test code = Creatinine 0.87 0.50-1.40 Lvl) [facility]2021-11-05 22:36:00 Test Item Value Reference Range Interpretation Comments Sodium Lvl (test code = Sodium Lvl) 139 135-145 [place] 159921-11-05 22:36:00 Test Item Value Reference Range Interpretation Comments Potassium Lvl (test code = Potassium 3.9 3.5-5.1 Lvl) [place] 159921-11-05 22:36:00 Test Item Value Reference Range Interpretation Comments Chloride Lvl (test code = Chloride Lvl) 106 95-109 [place] 159921-11-05 22:36:00 Test Item Value Reference Range Interpretation Comments CO2 (test code = CO2) 30 24-32 [place] 159921-11-05 22:36:00 Test Item Value Reference Range Interpretation Comments Calcium Lvl (test code = Calcium Lvl) 9.4 8.5-10.[address]11-05 22:36:00 Test Item Value Reference Range Interpretation Comments Total Protein (test code = Total 7.3 6.4-8.4 Protein) [address]11-05 22:36:00 Test Item Value Reference Range Interpretation Comments Albumin Lvl (test code = Albumin Lvl) 4.1 3.5-5.0 [facility] [id number] 22:36:00 Test Item Value Reference Range Interpretation Comments ALT (test code = ALT) 30 See_Comment [Auto mated message] The system which ge nerated this result transmit travis reference range : <=65. The reference range was not used to interpr et this result as vlad l/abnormal. [facility] [id number] 22:36:00 Test Item Value Reference Range Interpretation Comments AST (test code = AST) 16 See_Comment [Auto mated message] The system which ge nerated this result transmit travis reference range : <=37. The reference range was not used to interpr et this result as vlad l/abnormal. [facility] [id number] 22:36:00 Test Item Value Reference Range Interpretation Comments Alk Phos (test code = Alk Phos) 95 39-136 [facility] [id number] 22:36:00 Test Item Value Reference Range Interpretation Comments Bili Total (test code = Bili Total) 0.5 0.2-1.3 [facility] [id number] 22:36:00 Test Item Value Reference Range Interpretation Comments AGAP (test code = AGAP) 6.9 10.0-20.0 [facility] [id number] 22:36:00 Test Item Value Reference Range Interpretation Comments B/C Ratio (test code = B/C Ratio) 10 1 6-25 [facility] [id number] 22:36:00 Test Item Value Reference Range Interpretation Comments Globulin (test code = Globulin) 3.2 2.7-4.2 [facility] [id number] 22:36:00 Test Item Value Reference Range Interpretation Comments A/G Ratio (test code = A/G Ratio) 1.3 1 0.7-1.6 [facility]2021-11-05 22:36:00 Test Item Value Reference Range Interpretation Comments eGFR (test code = eGFR) 124 [place] [id number] 22:36:00 Test Item Value Reference Range Interpretation Comments WBC (test code = WBC) 6.1 3.7-10.4 [place] 960941-11-05 22:36:00 Test Item Value Reference Range Interpretation Comments RBC (test code = RBC) 4.42 4.70-6.10 [place] 960941-11-05 22:36:00 Test Item Value Reference Range Interpretation Comments Hgb (test code = Hgb) 13.6 14.0-18.0 [place] 960941-11-05 22:36:00 Test Item Value Reference Range Interpretation Comments Hct (test code = Hct) 40.0 42.0-54.0 [place] [address]-11-05 22:36:00 Test Item Value Reference Range Interpretation Comments MCV (test code = MCV) 90.4 80.0-94.0 [place] [address]-11-05 22:36:00 Test Item Value Reference Range Interpretation Comments MCH (test code = MCH) 30.8 pg 27.0-31.0 [place] 960941-11-05 22:36:00 Test Item Value Reference Range Interpretation Comments MCHC (test code = MCHC) 34.0 32.0-36.0 [place] 960941-11-05 22:36:00 Test Item Value Reference Range Interpretation Comments RDW (test code = RDW) 14.3 11.5-14.5 [place] [address]-11-05 22:36:00 Test Item Value Reference Range Interpretation Comments Platelet (test code = Platelet) 221 133-450 [place] 960941-11-05 22:36:00 Test Item Value Reference Range Interpretation Comments MPV (test code = MPV) 9.8 7.4-10.4 [place] 960941-11-05 22:36:00 Test Item Value Reference Range Interpretation Comments Segs (test code = Segs) 59.7 45.0-75.0 [place] 960941-11-05 22:36:00 Test Item Value Reference Range Interpretation Comments Lymphocytes (test code = Lymphocytes) 30.3 20.0-40.0 [place] 960941-11-05 22:36:00 Test Item Value Reference Range Interpretation Comments Monocytes (test code = Monocytes) 6.6 2.0-12.0 [place] 960941-11-05 22:36:00 Test Item Value Reference Range Interpretation Comments Eosinophils (test code = 2.9 See_Comment [A utomated message] The Eosinophils) system which ge nerated this result tra nsmitted reference range : <=4.0. The reference r heriberto was not used to int erpret this result as normal/abnormal . [place] 960941-11-05 22:36:00 Test Item Value Reference Range Interpretation Comments Basophils (test code = 0.5 See_Comment [Aut omated message] The Basophils) system which ge nerated this result tra nsmitted reference range : <=1.0. The reference r heriberto was not used to int erpret this result as normal/abnormal . [place] [id number] 22:36:00 Test Item Value Reference Range Interpretation Comments Neutrophils # (test code = Neutrophils 3.7 1.5-8.1 #) [place] 960941-11-05 22:36:00 Test Item Value Reference Range Interpretation Comments Lymphocytes # (test code = Lymphocytes 1.8 1.0-5.5 #) [place] 960941-11-05 22:36:00 Test Item Value Reference Range Interpretation Comments Monocytes # (test code 0.4 See_Comment [Aut omated message] The = Monocytes #) system which generated this result tra nsmitted reference range : <=0.8. The reference r heriberto was not used to int erpret this result as normal/abnormal . [place] 960941-11-05 22:36:00 Test Item Value Reference Range Interpretation Comments Eosinophils # (test code 0.2 See_Comment [A utomated message] The = Eosinophils #) system whic h generated this result tra nsmitted reference range : <=0.5. The reference r heriberto was not used to int erpret this result as normal/abnormal . [place] [id number] 22:36:00 Test Item Value Reference Range Interpretation Comments Acetaminoph Lvl (test code = 4 10-20 Acetaminoph Lvl) [place] [address]-11-05 22:36:00 Test Item Value Reference Range Interpretation Comments Ethanol Lvl (test code = Ethanol Lvl) no gt [place] [id number] 22:36:00 Test Item Value Reference Range Interpretation Comments Etoh (%) (test code = Etoh (%)) no gt [place] [id number] 22:36:00 Test Item Value Reference Range Interpretation Comments Salicylate Lvl (test no gt See_Comment [Autom ated message] The code = Salicylate Lvl) syste m which generated this result tra nsmitted reference range : <=30.0. The reference r heriberto was not used to int erpret this result as normal/abnormal . [facility] [id number] 22:36:00 Test Item Value Reference Range Interpretation Comments Glucose Lvl (test code = Glucose Lvl) 85 70-99 [facility] [id number] 22:36:00 Test Item Value Reference Range Interpretation Comments BUN (test code = BUN) 9 7-22 [place] 159921-11-05 22:36:00 Test Item Value Reference Range Interpretation Comments Creatinine Lvl (test code = Creatinine 0.87 0.50-1.40 Lvl) [place] 159921-11-05 22:36:00 Test Item Value Reference Range Interpretation Comments Sodium Lvl (test code = Sodium Lvl) 139 135-145 [facility] [id number] 22:36:00 Test Item Value Reference Range Interpretation Comments Potassium Lvl (test code = Potassium 3.9 3.5-5.1 Lvl) [facility] [id number] 22:36:00 Test Item Value Reference Range Interpretation Comments Chloride Lvl (test code = Chloride Lvl) 106 95-109 [place] 159921-11-05 22:36:00 Test Item Value Reference Range Interpretation Comments CO2 (test code = CO2) 30 24-32 [facility] [id number] 22:36:00 Test Item Value Reference Range Interpretation Comments Calcium Lvl (test code = Calcium Lvl) 9.4 8.5-10.5 [address]11-05 22:36:00 Test Item Value Reference Range Interpretation Comments Total Protein (test code = Total 7.3 6.4-8.4 Protein) [address]11-05 22:36:00 Test Item Value Reference Range Interpretation Comments Albumin Lvl (test code = Albumin Lvl) 4.1 3.5-5.0 [address]11-05 22:36:00 Test Item Value Reference Range Interpretation Comments ALT (test code = ALT) 30 See_Comment [Auto mated message] The system which ge nerated this result transmit travis reference range : <=65. The reference range was not used to interpr et this result as vlad l/abnormal. [address]11-05 22:36:00 Test Item Value Reference Range Interpretation Comments AST (test code = AST) 16 See_Comment [Auto mated message] The system which ge nerated this result transmit travis reference range : <=37. The reference range was not used to interpr et this result as vlad l/abnormal. [place] 159921-11-05 22:36:00 Test Item Value Reference Range Interpretation Comments Alk Phos (test code = Alk Phos) 95 39-136 [address]11-05 22:36:00 Test Item Value Reference Range Interpretation Comments Bili Total (test code = Bili Total) 0.5 0.2-1.[address]11-05 22:36:00 Test Item Value Reference Range Interpretation Comments AGAP (test code = AGAP) 6.9 10.0-20.0 [address]11-05 22:36:00 Test Item Value Reference Range Interpretation Comments B/C Ratio (test code = B/C Ratio) 10 1 6-[address]11-05 22:36:00 Test Item Value Reference Range Interpretation Comments Globulin (test code = Globulin) 3.2 2.7-4.[address]11-05 22:36:00 Test Item Value Reference Range Interpretation Comments A/G Ratio (test code = A/G Ratio) 1.3 1 0.7-1.6 [facility]2021-11-05 22:36:00 Test Item Value Reference Range Interpretation Comments eGFR (test code = eGFR) 124 [place] 960941-11-05 22:36:00 Test Item Value Reference Range Interpretation Comments WBC (test code = WBC) 6.1 3.7-10.4 [place] 960941-11-05 22:36:00 Test Item Value Reference Range Interpretation Comments RBC (test code = RBC) 4.42 4.70-6.10 [place] [address]-11-05 22:36:00 Test Item Value Reference Range Interpretation Comments Hgb (test code = Hgb) 13.6 14.0-18.0 [place] [address]-11-05 22:36:00 Test Item Value Reference Range Interpretation Comments Hct (test code = Hct) 40.0 42.0-54.0 [place] [address]-11-05 22:36:00 Test Item Value Reference Range Interpretation Comments MCV (test code = MCV) 90.4 80.0-94.0 [place] [address]-11-05 22:36:00 Test Item Value Reference Range Interpretation Comments MCH (test code = MCH) 30.8 pg 27.0-31.0 [place] [address]-11-05 22:36:00 Test Item Value Reference Range Interpretation Comments MCHC (test code = MCHC) 34.0 32.0-36.0 [place] [address]-11-05 22:36:00 Test Item Value Reference Range Interpretation Comments RDW (test code = RDW) 14.3 11.5-14.5 [place] [address]-11-05 22:36:00 Test Item Value Reference Range Interpretation Comments Platelet (test code = Platelet) 221 133-450 [place] 960941-11-05 22:36:00 Test Item Value Reference Range Interpretation Comments MPV (test code = MPV) 9.8 7.4-10.4 [place] [address]-11-05 22:36:00 Test Item Value Reference Range Interpretation Comments Segs (test code = Segs) 59.7 45.0-75.0 [place] 960941-11-05 22:36:00 Test Item Value Reference Range Interpretation Comments Lymphocytes (test code = Lymphocytes) 30.3 20.0-40.0 [place] 960941-11-05 22:36:00 Test Item Value Reference Range Interpretation Comments Monocytes (test code = Monocytes) 6.6 2.0-12.0 [place] 960941-11-05 22:36:00 Test Item Value Reference Range Interpretation Comments Eosinophils (test code = 2.9 See_Comment [A utomated message] The Eosinophils) system which ge nerated this result tra nsmitted reference range : <=4.0. The reference r heriberto was not used to int erpret this result as normal/abnormal . [id number] 22:36:00 Test Item Value Reference Range Interpretation Comments Basophils (test code = 0.5 See_Comment [Aut omated message] The Basophils) system which ge nerated this result tra nsmitted reference range : <=1.0. The reference r heriberto was not used to int erpret this result as normal/abnormal . [id number] 22:36:00 Test Item Value Reference Range Interpretation Comments Neutrophils # (test code = Neutrophils 3.7 1.5-8.1 #) [place] 960941-11-05 22:36:00 Test Item Value Reference Range Interpretation Comments Lymphocytes # (test code = Lymphocytes 1.8 1.0-5.5 #) [place] 960941-11-05 22:36:00 Test Item Value Reference Range Interpretation Comments Monocytes # (test code 0.4 See_Comment [Aut omated message] The = Monocytes #) system which generated this result tra nsmitted reference range : <=0.8. The reference r heriberto was not used to int erpret this result as normal/abnormal . [id number] 22:36:00 Test Item Value Reference Range Interpretation Comments Eosinophils # (test code 0.2 See_Comment [A utomated message] The = Eosinophils #) system whic h generated this result tra nsmitted reference range : <=0.5. The reference r heriberto was not used to int erpret this result as normal/abnormal . [id number] 22:36:00 Test Item Value Reference Range Interpretation Comments Acetaminoph Lvl (test code = 4 10-20 Acetaminoph Lvl) [place] 420091-11-05 22:36:00 Test Item Value Reference Range Interpretation Comments Ethanol Lvl (test code = Ethanol Lvl) no gt [place] 420091-11-05 22:36:00 Test Item Value Reference Range Interpretation Comments Etoh (%) (test code = Etoh (%)) no gt [place] [id number] 22:36:00 Test Item Value Reference Range Interpretation Comments Salicylate Lvl (test no gt See_Comment [Autom ated message] The code = Salicylate Lvl) syste m which generated this result tra nsmitted reference range : <=30.0. The reference r heriberto was not used to int erpret this result as normal/abnormal . [facility] [id number] 22:36:00 Test Item Value Reference Range Interpretation Comments Glucose Lvl (test code = Glucose Lvl) 85 70-99 [facility] [id number] 22:36:00 Test Item Value Reference Range Interpretation Comments BUN (test code = BUN) 9 7-22 [facility] [id number] 22:36:00 Test Item Value Reference Range Interpretation Comments Creatinine Lvl (test code = Creatinine 0.87 0.50-1.40 Lvl) [facility] [id number] 22:36:00 Test Item Value Reference Range Interpretation Comments Sodium Lvl (test code = Sodium Lvl) 139 135-145 [facility] [id number] 22:36:00 Test Item Value Reference Range Interpretation Comments Potassium Lvl (test code = Potassium 3.9 3.5-5.1 Lvl) [facility] [id number] 22:36:00 Test Item Value Reference Range Interpretation Comments Chloride Lvl (test code = Chloride Lvl) 106 95-109 [facility] [id number] 22:36:00 Test Item Value Reference Range Interpretation Comments CO2 (test code = CO2) 30 24-32 [facility] [id number] 22:36:00 Test Item Value Reference Range Interpretation Comments Calcium Lvl (test code = Calcium Lvl) 9.4 8.5-10.5 [address]11-05 22:36:00 Test Item Value Reference Range Interpretation Comments Total Protein (test code = Total 7.3 6.4-8.4 Protein) [address]11-05 22:36:00 Test Item Value Reference Range Interpretation Comments Albumin Lvl (test code = Albumin Lvl) 4.1 3.5-5.0 [place] [address]-11-05 22:36:00 Test Item Value Reference Range Interpretation Comments ALT (test code = ALT) 30 See_Comment [Auto mated message] The system which ge nerated this result transmit travis reference range : <=65. The reference range was not used to interpr et this result as vlad l/abnormal. [address]11-05 22:36:00 Test Item Value Reference Range Interpretation Comments AST (test code = AST) 16 See_Comment [Auto mated message] The system which ge nerated this result transmit travis reference range : <=37. The reference range was not used to interpr et this result as vlad l/abnormal. [place] 159921-11-05 22:36:00 Test Item Value Reference Range Interpretation Comments Alk Phos (test code = Alk Phos) 95 39-136 [place] 159921-11-05 22:36:00 Test Item Value Reference Range Interpretation Comments Bili Total (test code = Bili Total) 0.5 0.2-1.3 [place] 159921-11-05 22:36:00 Test Item Value Reference Range Interpretation Comments AGAP (test code = AGAP) 6.9 10.0-20.0 [place] 159921-11-05 22:36:00 Test Item Value Reference Range Interpretation Comments B/C Ratio (test code = B/C Ratio) 10 1 6-[address]11-05 22:36:00 Test Item Value Reference Range Interpretation Comments Globulin (test code = Globulin) 3.2 2.7-4.[address]11-05 22:36:00 Test Item Value Reference Range Interpretation Comments A/G Ratio (test code = A/G Ratio) 1.3 1 0.7-1.6 [place] [address]-05 22:36:00 Test Item Value Reference Range Interpretation Comments eGFR (test code = eGFR) 124 [id number] 22:36:00 Test Item Value Reference Range Interpretation Comments WBC (test code = WBC) 6.1 3.7-10.4 [place] 960941-11-05 22:36:00 Test Item Value Reference Range Interpretation Comments RBC (test code = RBC) 4.42 4.70-6.10 [place] 960941-11-05 22:36:00 Test Item Value Reference Range Interpretation Comments Hgb (test code = Hgb) 13.6 14.0-18.0 [place] 960941-11-05 22:36:00 Test Item Value Reference Range Interpretation Comments Hct (test code = Hct) 40.0 42.0-54.0 [place] 960941-11-05 22:36:00 Test Item Value Reference Range Interpretation Comments MCV (test code = MCV) 90.4 80.0-94.0 [place] 960941-11-05 22:36:00 Test Item Value Reference Range Interpretation Comments MCH (test code = MCH) 30.8 pg 27.0-31.0 [place] 960941-11-05 22:36:00 Test Item Value Reference Range Interpretation Comments MCHC (test code = MCHC) 34.0 32.0-36.0 [facility]
[2022-04-02] MEDS ORDERED: ACETAMINOPHEN 500 MG TAB ONE (05:49)
[2022-04-02] MEDS ORDERED: DIPHENHYDRAMINE 50 MG/ML VIAL ONE (05:49)
[2022-04-02] MEDS ORDERED: METOCLOPRAMIDE 10 MG/2mL INJ ONE (05:49)
[2022-04-02] MEDS ORDERED: NA CHLORIDE 0.9% 50 ML IV ONE (05:50)
[2022-04-02] MEDS ORDERED: Magnesium Sulfate 2gm IVPB 2 G/50 ML BAG IV ONE (05:50)
[2022-04-02] MEDS ORDERED: KETOROLAC 30 MG/ML INJ ONE (05:50)
--- NOTE | 2022-04-02 06:59 | EDPHYS ---
Physician Documentation [facility] Name: Guy Sifuentes Age: 21 yrs Sex: Male : 2000 Arrival Date: 04/02/2022 Time: 04:56 Bed 8 Private MD: ED Physician Clifford Loja HPI: 04/02 05:52 This 21 yrs old Male presents to ER via Ambulatory with complaints of Headache.rt 05:52 The patient complains of pain to the right mormon. The patient describes the headache rt as a pressure. 05:52 Onset: The symptoms/episode began/occurred 3 month(s) ago. Associated signs and rt symptoms: Pertinent positives: Light, sound sensitivity. Severity of symptoms: At its worst the pain was moderate. Headache History: The patient has had previous headaches and this one is similar to previous episodes. The symptoms are alleviated by nothing. the symptoms are aggravated by nothing. Patient presents to the ED with a headache that has been off and on for several months now. He has had multiple CT scans that were all negative. Patient states that he has had a headache of the past day, right-sided, aching, nonradiating. He has associated light and sound sensitivity. Denies other acute complaints at this time. He is taken ibuprofen about 12 hours ago to no relief. No other aggravating alleviating factors.. Historical: - Allergies: 05:19 No Known Allergies; vc1 - Home Meds: 05:19 None [Active]; vc1 - PMHx: 05:19 Migraines; vc1 - PSHx: 05:19 None; vc1 - Immunization history:: Client reports receiving the 2nd dose of the Covid vaccine. - Social history:: Smoking status: Reported history of juuling and/or vaping. Patient uses alcohol, occasionally. - Family history:: not pertinent. ROS: 05:52 Constitutional: Negative for fever, chills, and weight loss, Eyes: Negative for injury, rt pain, redness, and discharge, ENT: Negative for injury, pain, and discharge, Neck: Negative for injury, pain, and swelling, Cardiovascular: Negative for chest pain, palpitations, and edema, Respiratory: Negative for shortness of breath, cough, wheezing, and pleuritic chest pain, Abdomen/GI: Negative for abdominal pain, nausea, vomiting, diarrhea, and constipation, Skin: Negative for injury, rash, and discoloration, Psych: Negative for depression, anxiety, suicide ideation, homicidal ideation, and hallucinations. 05:52 Neuro: Positive for headache, Negative for altered mental status. Exam: 05:52 Constitutional: This is a well developed, well nourished patient who is awake, alert, rt and in no acute distress. Head/Face: Normocephalic, atraumatic. ENT: Nares patent. No nasal discharge, no septal abnormalities noted. Tympanic membranes are normal and external auditory canals are clear. Oropharynx with no redness, swelling, or masses, exudates, or evidence of obstruction, uvula midline. Mucous membranes moist. Chest/axilla: Normal chest wall appearance and motion. Nontender with no deformity. No lesions are appreciated. Cardiovascular: Regular rate and rhythm with a normal S1 and S2. No gallops, murmurs, or rubs. Normal PMI, no JVD. No pulse deficits. Respiratory: Lungs have equal breath sounds bilaterally, clear to auscultation and percussion. No rales, rhonchi or wheezes noted. No increased work of breathing, no retractions or nasal flaring. Abdomen/GI: Soft, non-tender, with normal bowel sounds. No distension or tympany. No guarding or rebound. No evidence of tenderness throughout. Skin: Warm, dry with normal turgor. Normal color with no rashes, no lesions, and no evidence of cellulitis. MS/ Extremity: Pulses equal, no cyanosis. Neurovascular intact. Full, normal range of motion. Neuro: Awake and alert, GCS 15, oriented to person, place, time, and situation. Cranial nerves II-XII grossly intact. Motor strength 5/5 in all extremities. Sensory grossly intact. Cerebellar exam normal. Normal gait. Psych: Awake, alert, with orientation to person, place and time. Behavior, mood, and affect are within normal limits. 05:52 Neck: Full range of motion, no meningismus. Vital Signs: 05:17 BP 130 / 83; Pulse 61; Resp 18; Temp 97.8(O); Pulse Ox 100% on R/A; Weight 72.57 kg; vc1 Height 5 ft. 9 in. (175.26 cm); Pain 9/10; 05:17 Body Mass Index 23.63 (72.57 kg, 175.26 cm) vc1 MDM: 05:33 Patient medically screened. rt 06:58 Differential diagnosis: intracerebral hemorrhage, meningitis, migraine, subarachnoid rt bleed, tension headache. Data reviewed: vital signs, nurses notes, old medical records. ED course: Patient presents to the ED with continuation of a headache on the right side. He has been diagnosed with migraines. He has had CT scans for this and work-up previously, was referred to a neurologist, however, has not made his appointment yet. Patient symptoms have significant improved with headache cocktail in the ED, he is stable for outpatient care. No focal neurologic deficits, no meningitis, encephalitis based off of physical exam. Very low suspicion for subarachnoid hemorrhage. Stable for outpatient care, return precautions discussed.. Administered Medications: 06:11 Drug: Reglan (metoCLOPramide) 10 mg Route: IVP; Site: right antecubital; vc1 07:22 Follow up: Response: No adverse reaction ha1 06:11 Drug: Benadryl (diphenhydrAMINE) 25 mg Route: IVP; Site: right antecubital; vc1 07:21 Follow up: Response: No adverse reaction; Pain is decreased ha1 06:11 Drug: Magnesium Sulfate 2 grams Route: IVPB; Infused Over: 30 mins; Site: right vc1 antecubital; 07:21 Follow up: IV Status: Completed infusion; IV Intake: 50ml ha1 06:11 Drug: Ketorolac 30 mg Route: IVP; Site: right antecubital; vc1 07:20 Follow up: Response: No adverse reaction; Pain is decreased ha1 06:11 Drug: Tylenol 1000 mg Route: PO; vc1 07:20 Follow up: Response: No adverse reaction ha1 Disposition Summary: 04/02/22 06:58 Discharge Ordered Location: Home rt Problem: an ongoing problem rt Symptoms: have improved rt Condition: Stable rt Diagnosis - Headache rt Followup: rt - With: Private Physician - When: 2 - 3 days - Reason: Discharge Instructions: - Discharge Summary Sheet rt - Migraine Headache rt Forms: - Medication Reconciliation Form rt - Thank You Letter rt - Antibiotic Education rt - Prescription Opioid Use rt Signatures: Diana Connolly RN RN vc1 Piyush Campos MD MD rt Svetlana Jaquez RN ha1
--- NOTE | 2022-04-02 06:59 | ER ---
Nurse's Notes [facility] Name: Guy Sifuentes Age: 21 yrs Sex: Male : 2000 Arrival Date: 04/02/2022 Time: 04:56 Bed 8 Private MD: Diagnosis: Headache Presentation: 04/02 05:17 Chief complaint: Patient states: "My head has been hurting for a couple of months I vc1 feel like the right side is about to fall off.". Coronavirus screen: Vaccine status: Patient reports receiving the 2nd dose of the covid vaccine. Unsure of collaborating supervising physician. Ebola Screen: No symptoms or risks identified at this time. Initial Sepsis Screen: Does the patient meet any 2 criteria? No. Patient's initial sepsis screen is negative. Does the patient have a suspected source of infection? No. Patient's initial sepsis screen is negative. Risk Assessment: Do you want to hurt yourself or someone else? Patient reports no desire to harm self or others. Onset of symptoms was April 02, 2022. 05:17 Method Of Arrival: Ambulatory vc1 05:17 Acuity: ZULEIKA 4 vc1 Triage Assessment: 05:20 Headache History: The patient has had previous headaches and this one is more severe vc1 than previous episodes. General: Appears in no apparent distress. ill, slender, Behavior is cooperative. Pain: Complains of pain in top of head and left side of the back of head Pain currently is 9 out of 10 on a pain scale. Pain began several months Also complains of photophobia. EENT: Reports blurred vision with migraines. Neuro: Level of Consciousness is awake, obeys commands, Oriented to person, place, time, situation, Appropriate for age. Cardiovascular: Reports chest pain, Chest pain occurs occasionally with migraines. Respiratory: Airway is patent Respiratory effort is even, unlabored, Respiratory pattern is regular, symmetrical. GI: No deficits noted. : No deficits noted. Derm: No deficits noted. Musculoskeletal: No deficits noted. Historical: - Allergies: 05:19 No Known Allergies; vc1 - Home Meds: 05:19 None [Active]; vc1 - PMHx: 05:19 Migraines; vc1 - PSHx: 05:19 None; vc1 - Immunization history:: Client reports receiving the 2nd dose of the Covid vaccine. - Social history:: Smoking status: Reported history of juuling and/or vaping. Patient uses alcohol, occasionally. - Family history:: not pertinent. Screenin:19 Abuse screen: Denies threats or abuse. Nutritional screening: No deficits noted. vc1 Tuberculosis screening: No symptoms or risk factors identified. Fall Risk None identified. Assessment: 07:00 General: SEE TRIAGE NOTE. ha1 07:18 Reassessment: PT DC HOME AMBULATORY. ha1 Vital Signs: 05:17 BP 130 / 83; Pulse 61; Resp 18; Temp 97.8(O); Pulse Ox 100% on R/A; Weight 72.57 kg; vc1 Height 5 ft. 9 in. (175.26 cm); Pain 9/10; 05:17 Body Mass Index 23.63 (72.57 kg, 175.26 cm) vc1 ED Course: 04:56 Patient arrived in ED. ja2 05:19 Triage completed. vc1 05:22 Arm band placed on right wrist. vc1 05:22 Patient has correct armband on for positive identification. Bed in low position. Call vc1 light in reach. Pulse ox on. NIBP on. 05:30 Piyush Campos MD is Attending Physician. rt 05:39 Diana Connolly, GURWINDER is Primary Nurse. vc1 07:19 No provider procedures requiring assistance completed. IV discontinued, intact, ha1 bleeding controlled, No redness/swelling at site. Pressure dressing applied. 07:22 Attending Physician role handed off by Piyush Campos MD kdr 07:22 Clifford Loja MD is Attending Physician. kdr Administered Medications: 06:11 Drug: Reglan (metoCLOPramide) 10 mg Route: IVP; Site: right antecubital; vc1 07:22 Follow up: Response: No adverse reaction ha1 06:11 Drug: Benadryl (diphenhydrAMINE) 25 mg Route: IVP; Site: right antecubital; vc1 07:21 Follow up: Response: No adverse reaction; Pain is decreased ha1 06:11 Drug: Magnesium Sulfate 2 grams Route: IVPB; Infused Over: 30 mins; Site: right vc1 antecubital; 07:21 Follow up: IV Status: Completed infusion; IV Intake: 50ml ha1 06:11 Drug: Ketorolac 30 mg Route: IVP; Site: right antecubital; vc1 07:20 Follow up: Response: No adverse reaction; Pain is decreased ha1 06:11 Drug: Tylenol 1000 mg Route: PO; vc1 07:20 Follow up: Response: No adverse reaction ha1 Medication: 05:22 VIS not applicable for this client. vc1 Intake: 07:21 IV: 50ml; Total: 50ml. ha1 Outcome: 06:58 Discharge ordered by . rt 07:19 Discharged to home ambulatory. ha1 07:19 Condition: stable 07:19 Discharge instructions given to patient, Instructed on discharge instructions, follow up and referral plans. Demonstrated understanding of instructions, follow-up care. 07:23 Patient left the ED. ha1 Signatures: Clifford Loja MD MD kdr Alexander, Jessica ja2 Calcote, Vanessa, RN RN vc1 Svetlana Jaquez RN RN ha1 Piyush Campos MD MD rt
[2022-04-02 07:38] VITALS: BP 130/83; TEMP 97.8; O2SAT 100
== END 2022-04-02 07:23 | disposition home or self-care (01) ==
LOC: ER 04:53
DX: R51.9 Headache, unspecified (principal)
CPT/HCPCS: 96365; 96375; 99283; J2765; J1200; J3475

== ENCOUNTER 2022-04-19 04:52 | Emergency (ER) | payer BC ==
--- OUTSIDE RECORDS SUMMARY | 2022-04-19 04:57 | XMS REPORT | Continuity of Care Document ---
:2000 Author Organization [facility] t Address [address] [place] [address] Care Team Providers Name Role Phone Cayla Calderon Attending Clinician Domonique Dmoinique Attending Clinician DOMONIQUE DOMINIQUE Attending Clinician Unavailable Problems Condition Condition Condition Status Onset Resolution Last Treating Co mments Source Name Details Category Date Date Treatment Clinician Date SUCIDAL SUCIDAL Diagnosis Active 2020-042021-03-10 Memoria IDEATION/D IDEATION/D 05-03 22:06:00 l EPRESSION/ EPRESSION/ 00:00: He rmann VOMITTING VOMITTING 00 Active 03/03/2021 [facility] Headache Headache Problem Active 2021-03-17 Memoria (finding) (finding) 22:55:35 l Active [facility] Major Problem Active 2021-03-17 Chris brina 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 Active Problem 03/17/2021 Medical [facility] Poisoning Poisoning Problem Active 2021-03-17 Memoria by drug by drug 22:55:35 l AND/OR AND/OR [place] medicinal medicinal substance substance (disorder) (disorder) Active [facility] Suicidal Suicidal Problem Active 2021-03-17 Memoria thoughts thoughts 22:55:35 l (finding) (finding) Herm aurelia Active Problem 03/17/2021 Medical Group,[facility] Unintentio Unintenti Problem Active 2021-03-17 Memoria nal weight onal 22:55:35 l loss weight Marco (finding) loss (finding) Active Problem 03/17/2021 Medical Group,[facility] Vomiting Vomiting Problem Active 2021-03-17 Memoria (disorder) (disorder) 22:55:35 l Active Marco Problem 03/17/2021 Medical [facility] Rash of Rash of Problem Active 2021-03-17 Me moria genitalia genitalia 22:55:35 l (disorder) (disorder) He rmann Active Problem 03/17/2021 Medical [facility] Tinea Tinea Problem Active 2021-03-17 Memor ia cruris cruris 22:55:35 l (disorder) (disorder) He rmann Active Problem 03/17/2021 Medical Group,[facility] Allergies, Adverse Reactions, Alerts This patient has no known allergies or adverse reactions. Social History Smoking Status Start Date Stop Date Source Social History [facility] Medications Ordered Filled Start Stop Current Ordering Indication Dosage Frequency Signature Comments Components Source Medication Medication Date Date Medication? Clinician (SIG) Name Name Ativan 2020-04 No Notes: Memoria 1-06 (Same as: l 23:44: Ativan) Marco 00 Ativan 2020-04 No Notes: Memoria 1-06 (Same as: l 23:44: Ativan) [place] 00 Ativan 2020-04 No Notes: Memoria 1-06 (Same as: l 23:44: Ativan) [place] Ativan 2020-04 No Notes: Memoria 1-06 (Same as: l 23:44: Ativan) Marco 00 Ketamine 2020-04 No 300 mg, 3 Chris brina 1-06 mL, Route: l 03:40: IM, Drug Marco 00 form: INJ, ONCE, Dosing Weight 68.182, kg, Start date: 03/03/21 22:40:00 CDT, Stop date: 03/03/21 22:40:00 CDT, 0 Ketamine 2020-04 No 300 mg, 3 Chris brina 1-06 mL, Route: l 03:40: IM, Drug form: INJ, ONCE, Dosing Weight 68.182, kg, Start date: 03/03/21 22:40:00 CDT, Stop date: 03/03/21 22:40:00 CDT, 0 Ketamine 2020- No 300 mg, 3 Chris brina 1-06 mL, Route: l 03:40: IM, Drug form: INJ, ONCE, Dosing Weight 68.182, kg, Start date: 03/03/21 22:40:00 CDT, Stop date: 03/03/21 22:40:00 CDT, 0 Ketamine 2020- No 300 mg, 3 Chris brina 1-06 mL, Route: l 03:40: IM, Drug form: INJ, ONCE, Dosing Weight 68.182, kg, Start date: 03/03/21 22:40:00 CDT, Stop date: 03/03/21 22:40:00 CDT, 0 Haldol 2020-04 No 5 mg, Memoria 1-06 Route: IM, l 01:27: ONCE, Dosing Weight 68.182, kg, Priority: STAT, Start date: 03/03/21 20:27:00 CDT, Stop date: 03/03/21 20:27:00 CDT Benadryl 2020-1 No 50 mg, Memoria 1-06 Route: IM, l 01:27: ONCE, Dosing Weight 68.182, kg, Priority: STAT, Start date: 03/03/21 20:27:00 CDT, Stop date: 03/03/21 20:27:00 CDT Haldol 2020-1 No 5 mg, Memoria 1-06 Route: IM, l 01:27: ONCE, Dosing Weight 68.182, kg, Priority: STAT, Start date: 03/03/21 20:27:00 CDT, Stop date: 03/03/21 20:27:00 CDT Benadryl 2020-1 No 50 mg, Memoria 1-06 Route: IM, l 01:27: ONCE, Dosing Weight 68.182, kg, Priority: STAT, Start date: 03/03/21 20:27:00 CDT, Stop date: 03/03/21 20:27:00 CDT Haldol 2020-1 No 5 mg, Memoria 1-06 Route: IM, l 01:27: ONCE, Dosing Weight 68.182, kg, Priority: STAT, Start date: 03/03/21 20:27:00 CDT, Stop date: 03/03/21 20:27:00 CDT Benadryl 2020-04 No 50 mg, Memoria 1-06 Route: IM, l 01:27: ONCE, [place] Dosing Weight 68.182, kg, Priority: STAT, Start date: 03/03/21 20:27:00 CDT, Stop date: 03/03/21 20:27:00 CDT Haldol 2020-04 No 5 mg, Memoria 05-04 Route: IM, l 01:27: ONCE, Marco 00 Dosing Weight 68.182, kg, Priority: STAT, Start date: 03/03/21 20:27:00 CDT, Stop date: 03/03/21 20:27:00 CDT Benadryl 2020-04 No 50 mg, Memoria 05-04 Route: IM, l 01:27: ONCE, Dosing Weight 68.182, kg, Priority: STAT, Start date: 03/03/21 20:27:00 CDT, Stop date: 03/03/21 20:27:00 CDT Ativan 2020-04 No 1 mg, Memoria 1-05 Route: l 23:42: IVP, Drug [place] 00 form: INJ, ONCE, Dosing Weight 68.182, [...] Memoria 1-05 Route: l 23:42: IVP, Drug [place] 00 form: INJ, ONCE, Dosing Weight 68.182, kg, Priority: STAT, Start date: 03/03/21 18:42:00 CDT, Stop date: 03/03/21 18:42:00 CDT Ativan 2020-04 No 1 mg, Memoria 05-03 Route: l 23:42: IVP, Drug [place] 00 form: INJ, ONCE, Dosing Weight 68.182, kg, Priority: STAT, Start date: 03/03/21 18:42:00 CDT, Stop date: 03/03/21 18:42:00 CDT Ketoconazol 2019-04 Yes 1 appl, Mem oria e 20 MG/ML 2-16 TOP, l Topical 21:40: Daily, X 2 Herm aurelia Cream 00 week, # 15 gm, 1 Refill(s), Pharmacy: [facility] #[id number], 175.26, cm, 04/13/20 15:26:00 [employer], Height, 88.665, kg, 04/13/20 15:26:00 [employer], Weight Ketoconazol 2019-04 Yes 1 appl, Mem oria e 20 MG/ML 2-16 TOP, l Topical 21:40: Daily, X 2 Herm aurelia Cream 00 week, # 15 gm, 1 Refill(s), Pharmacy: [facility] #[id number], 175.26, cm, 04/13/20 15:26:00 [employer], Height, 88.665, kg, 04/13/20 15:26:00 [employer], Weight Ketoconazol 2019-04 Yes 1 appl, Mem oria e 20 MG/ML 2-16 TOP, l Topical 21:40: Daily, X 2 Herm aurelia Cream week, # 15 gm, 1 Refill(s), Pharmacy: [facility] #[id number], 175.26, cm, 04/13/20 15:26:00 [employer], Height, 88.665, kg, 04/13/20 15:26:00 [employer], Weight Ketoconazol 2019-04 Yes 1 appl, Mem oria e 20 MG/ML 2-16 TOP, l Topical 21:40: Daily, X 2 Herm aurelia Cream 00 week, # 15 gm, 1 Refill(s), Pharmacy: [facility] #[id number], 175.26, cm, 04/13/20 15:26:00 [employer], Height, 88.665, kg, 04/13/20 15:26:00 [employer], Weight Vital Signs Vital Name Observation Time Observation Value Comments Source Temperature Oral (F) 2021-03-05 13:45:00 98.2 F [facility] [place] Heart Rate 2021-03-05 13:45:00 [facility] [place] Respitory Rate 2021-03-05 13:45:00 Memori al [place] Systolic (mm Hg) 2021-03-05 13:45:00 Chris rial [place] Diastolic (mm Hg) 2021-03-05 13:45:00 Mem orial [place] Temperature Oral (F) 2021-03-05 10:00:00 98.6 F [facility] [place] Heart Rate 2021-03-05 10:00:00 [facility] [place] Respitory Rate 2021-03-05 10:00:00 Memori al [place] Systolic (mm Hg) 2021-03-05 10:00:00 Chris rial [place] Diastolic (mm Hg) 2021-03-05 10:00:00 Mem orial [place] Temperature Oral (F) 2021-03-05 05:00:00 98.3 F [facility] [place] Heart Rate 2021-03-05 05:00:00 [facility] [place] Respitory Rate 2021-03-05 05:00:00 Memori al [place] Systolic (mm Hg) 2021-03-05 05:00:00 Chris rial [place] Diastolic (mm Hg) 2021-03-05 05:00:00 Mem orial [place] Height 2021-03-03 21:51:00 167.64 cm [facility] [place] BMI Calculated 2021-03-03 21:51:00 Memori al [place] Weight 2021-03-03 21:51:00 [facility] [place] Systolic (mm Hg) 2021-03-03 20:53:00 Chris rial [place] Diastolic (mm Hg) 2021-03-03 20:53:00 Mem orial [place] Heart Rate 2021-03-03 20:53:00 [facility] [place] Height 2021-03-03 20:53:00 167.64 cm [facility] [place] Weight 2021-03-03 20:53:00 [facility] [place] BMI Calculated 2021-03-03 20:53:00 Memori al [place] Temperature Oral (F) 2020-04-13 21:26:00 97.2 F [facility] [place] Height 2020-04-13 21:26:00 175.26 cm [facility] [place] Weight 2020-04-13 21:26:00 [facility] [place] BMI Calculated 2020-04-13 21:26:00 Memori al [place] Systolic (mm Hg) 2020-04-13 21:26:00 Chris matt [place] Diastolic (mm Hg) 2020-04-13 21:26:00 Mem orial [place] Heart Rate 2020-04-13 21:26:00 [facility] [place] Procedures This patient has no known procedures. Encounters Start End Encounter Admission Attending Care Care Encounter Source Date/Time Date/Time Type Type Clinicians Facility Department ID 2021-03-15 2021-03-15 [place] [id number] Memoria 17:45:00 17:45:00 Pre-Reg r Primary 03 l [facility] 2021-03-15 2021-03-15 [place] [id number] Memoria 17:45:00 17:45:00 Pre-Reg r Primary 03 [facility] 2021-03-15 2021-03-15 Outpatient MHIE DAKOTAIE [id number] Memoria 11:45:00 11:45:00 03 [facility] 2021-03-15 2021-03-15 Outpatient Ukwu, MHMG MG [id number] 11:45:00 11:45:00 Cayladov [place] 2021-03-03 2021-03-05 Emergency nullFlavo [facility] [id number] Memoria 21:48:51 13:50:00 r Marco 00 [facility] 2021-03-03 2021-03-05 Emergency nullFlavo [facility] [id number] Memoria 21:48:51 13:50:00 r [place] 00 [facility] 2021-03-03 2021-03-05 Outpatient Fadowole, MHPL MHPL [id number] 16:48:51 07:50:00 Domonique 00 [place] 2021-03-03 2021-03-05 Outpatient Fadowole, MHPL MHPL [id number] 16:48:51 07:50:[address] [facility] [facility] [facility] 2021-03-03 2021-03-05 Emergency E FADOWOLE, MHBL MHBL [id number] MHBL 16:48:00 07:50:00 DOMONIQUE 2021-03-03 2021-03-04 Outpatient nullFlavo [facility] [id number] Memoria 20:45:00 04:59:59 r Primary 02 [facility] 2021-03-03 2021-03-04 Outpatient nullFlavo [facility] [id number] Memoria 20:45:00 04:59:59 r Primary 02 [facility] 2021-03-03 2021-03-03 [facility] [id number] 15:45:00 23:59:59 Cayla 02 Beryl 2021-03-03 2021-03-03 Outpatient IE IE [id number] Memoria 15:45:00 15:45:00 02 [facility] 2020-12-16 2020-12-16 Outpatient IE IE [id number] Memoria 15:15:00 15:15:00 01 [facility] 2020-12-16 2020-12-16 Outpatient IE IE [id number] Memoria 15:15:00 15:15:00 01 [facility] 2020-04-13 2020-04-14 Outpatient nullFlavo [facility] [id number] Memoria 21:30:00 05:59:59 r Primary 00 [facility] 2020-04-13 2020-04-14 Outpatient nullFlavo [facility] [id number] Memoria 21:30:00 05:59:59 r Primary 00 [facility] 2020-04-13 2020-04-13 [facility] [id number] 15:30:00 23:59:59 Cayla 00 Beryl 2020-04-13 2020-04-13 Outpatient IE IE [id number] Memoria 15:30:00 15:30:00 00 [facility] Results Test Description Test Time Test Comments Results Result Comments Source [facility] 2021-03-04 08:35:00 Test Item Value Reference Range Interpretation Comme nts Coronavirus (COVID-19) [place] (test code = Not Detected (03/04/21 3:35 AM) Coronavirus (COVID-19) [place]) [id number] 08:35:00 Test Item Value Reference Range Interpretation Comments Coronavirus (COVID-19) Not Detected (03/04/21 [place] (test code = 3:35 AM) Coronavirus (COVID-19) [place]) [id number] 08:35:00 Test Item Value Reference Range Interpretation Comments Coronavirus (COVID-19) Not Detected (03/04/21 [place] (test code = 3:35 AM) Coronavirus (COVID-19) [place]) [id number] 08:35:00 Test Item Value Reference Range Interpretation Comments Coronavirus (COVID-19) Not Detected (03/04/21 [place] (test code = 3:35 AM) Coronavirus (COVID-19) [place]) [facility] [id number] 23:30:00 Test Item Value Reference Range Interpretation Comments U Amph Scr (test code Negative *NA*(03/03/21 = U Amph Scr) 6:30 PM) [facility] [id number] 23:30:00 Test Item Value Reference Range Interpretation Comments U Fabiola Scr (test code Negative *NA*(03/03/21 = U Fabiola Scr) 6:30 PM) [facility] [id number] 23:30:00 Test Item Value Reference Range Interpretation Comments U Benzodiaz Scr (test Positive *ABN*(03/03/21 code = U Benzodiaz Scr) 6:30 PM) [facility] [id number] 23:30:00 Test Item Value Reference Range Interpretation Comments U Cocaine Scr (test Negative *NA*(03/03/21 code = U Cocaine Scr) 6:30 PM) [facility] [id number] 23:30:00 Test Item Value Reference Range Interpretation Comments U Cannab Scr (test Positive *ABN*(03/03/21 code = U Cannab Scr) 6:30 PM) [facility] [id number] 23:30:00 Test Item Value Reference Range Interpretation Comments U Opiate Scr (test Negative *NA*(03/03/21 code = U Opiate Scr) 6:30 PM) [facility] [id number] 23:30:00 Test Item Value Reference Range Interpretation Comments U Phencyclidine Scr (test Negative code = U Phencyclidine *NA*(03/03/21 6:30 Scr) PM) [facility] [id number] 23:30:00 Test Item Value Reference Range Interpretation Comments UDS Note (test code = See Note (03/03/21 6:30 UDS Note) PM) [facility] [id number] 23:30:00 Test Item Value Reference Range Interpretation Comments U Amph Scr (test code Negative *NA*(03/03/21 = U Amph Scr) 6:30 PM) [facility] [id number] 23:30:00 Test Item Value Reference Range Interpretation Comments U Fabiola Scr (test code Negative *NA*(03/03/21 = U Fabiola Scr) 6:30 PM) [facility] [id number] 23:30:00 Test Item Value Reference Range Interpretation Comments U Benzodiaz Scr (test Positive *ABN*(03/03/21 code = U Benzodiaz Scr) 6:30 PM) [facility] [id number] 23:30:00 Test Item Value Reference Range Interpretation Comments U Cocaine Scr (test Negative *NA*(03/03/21 code = U Cocaine Scr) 6:30 PM) [facility] [id number] 23:30:00 Test Item Value Reference Range Interpretation Comments U Cannab Scr (test Positive *ABN*(03/03/21 code = U Cannab Scr) 6:30 PM) [facility] [id number] 23:30:00 Test Item Value Reference Range Interpretation Comments U Opiate Scr (test Negative *NA*(03/03/21 code = U Opiate Scr) 6:30 PM) [facility] [id number] 23:30:00 Test Item Value Reference Range Interpretation Comments U Phencyclidine Scr (test Negative code = U Phencyclidine *NA*(03/03/21 6:30 Scr) PM) [facility] [id number] 23:30:00 Test Item Value Reference Range Interpretation Comments UDS Note (test code = See Note (03/03/21 6:30 UDS Note) PM) [facility] [id number] 23:30:00 Test Item Value Reference Range Interpretation Comments U Amph Scr (test code Negative *NA*(03/03/21 = U Amph Scr) 6:30 PM) [facility] [id number] 23:30:00 Test Item Value Reference Range Interpretation Comments U Fabiola Scr (test code Negative *NA*(03/03/21 = U Fabiola Scr) 6:30 PM) [facility] [id number] 23:30:00 Test Item Value Reference Range Interpretation Comments U Benzodiaz Scr (test Positive *ABN*(03/03/21 code = U Benzodiaz Scr) 6:30 PM) [facility] [id number] 23:30:00 Test Item Value Reference Range Interpretation Comments U Cocaine Scr (test Negative *NA*(03/03/21 code = U Cocaine Scr) 6:30 PM) [facility] [id number] 23:30:00 Test Item Value Reference Range Interpretation Comments U Cannab Scr (test Positive *ABN*(03/03/21 code = U Cannab Scr) 6:30 PM) [facility] [id number] 23:30:00 Test Item Value Reference Range Interpretation Comments U Opiate Scr (test Negative *NA*(03/03/21 code = U Opiate Scr) 6:30 PM) [facility] [id number] 23:30:00 Test Item Value Reference Range Interpretation Comments U Phencyclidine Scr (test Negative code = U Phencyclidine *NA*(03/03/21 6:30 Scr) PM) [facility] [id number] 23:30:00 Test Item Value Reference Range Interpretation Comments UDS Note (test code = See Note (03/03/21 6:30 UDS Note) PM) [facility] [id number] 23:30:00 Test Item Value Reference Range Interpretation Comments U Amph Scr (test code Negative *NA*(03/03/21 = U Amph Scr) 6:30 PM) [facility] [id number] 23:30:00 Test Item Value Reference Range Interpretation Comments U Fabiola Scr (test code Negative *NA*(03/03/21 = U Fabiola Scr) 6:30 PM) [facility] [id number] 23:30:00 Test Item Value Reference Range Interpretation Comments U Benzodiaz Scr (test Positive *ABN*(03/03/21 code = U Benzodiaz Scr) 6:30 PM) [facility] [id number] 23:30:00 Test Item Value Reference Range Interpretation Comments U Cocaine Scr (test Negative *NA*(03/03/21 code = U Cocaine Scr) 6:30 PM) [facility] [id number] 23:30:00 Test Item Value Reference Range Interpretation Comments U Cannab Scr (test Positive *ABN*(03/03/21 code = U Cannab Scr) 6:30 PM) [facility] [id number] 23:30:00 Test Item Value Reference Range Interpretation Comments U Opiate Scr (test Negative *NA*(03/03/21 code = U Opiate Scr) 6:30 PM) [facility] [id number] 23:30:00 Test Item Value Reference Range Interpretation Comments U Phencyclidine Scr (test Negative code = U Phencyclidine *NA*(03/03/21 6:30 Scr) PM) [facility] [id number] 23:30:00 Test Item Value Reference Range Interpretation Comments UDS Note (test code = See Note (03/03/21 6:30 UDS Note) PM) [facility] [id number] 22:36:00 Test Item Value Reference Range Interpretation Comments MCHC (test code = MCHC) 34.0 32.0-36.0 [facility] [id number] 22:36:00 Test Item Value Reference Range Interpretation Comments RDW (test code = RDW) 14.3 11.5-14.5 [facility] [id number] 22:36:00 Test Item Value Reference Range Interpretation Comments Platelet (test code = Platelet) 221 133-450 [facility] [id number] 22:36:00 Test Item Value Reference Range Interpretation Comments MPV (test code = MPV) 9.8 7.4-10.4 [facility] [id number] 22:36:00 Test Item Value Reference Range Interpretation Comments Segs (test code = Segs) 59.7 45.0-75.0 [facility] [id number] 22:36:00 Test Item Value Reference Range Interpretation Comments Lymphocytes (test code = Lymphocytes) 30.3 20.0-40.0 Memorial [id number] 22:36:00 Test Item Value Reference Range Interpretation Comments Monocytes (test code = Monocytes) 6.6 2.0-12.0 [place] [id number] 22:36:00 Test Item Value Reference Range Interpretation Comments Eosinophils (test code = 2.9 See_Comment [A utomated message] The Eosinophils) system which ge nerated this result tra nsmitted reference range : <=4.0. The reference r heriberto was not used to int erpret this result as normal/abnormal . [place] [id number] 22:36:00 Test Item Value Reference Range Interpretation Comments Basophils (test code = 0.5 See_Comment [Aut omated message] The Basophils) system which ge nerated this result tra nsmitted reference range : <=1.0. The reference r heriberto was not used to int erpret this result as normal/abnormal . [id number] 22:36:00 Test Item Value Reference Range Interpretation Comments Neutrophils # (test code = Neutrophils 3.7 1.5-8.1 #) [place] [id number] 22:36:00 Test Item Value Reference Range Interpretation Comments Lymphocytes # (test code = Lymphocytes 1.8 1.0-5.5 #) [facility] [id number] 22:36:00 Test Item Value Reference Range Interpretation Comments Monocytes # (test code 0.4 See_Comment [Aut omated message] The = Monocytes #) system which generated this result tra nsmitted reference range : <=0.8. The reference r heriberto was not used to int erpret this result as normal/abnormal . [place] [id number] 22:36:00 Test Item Value Reference Range Interpretation Comments Eosinophils # (test code 0.2 See_Comment [A utomated message] The = Eosinophils #) system whic h generated this result tra nsmitted reference range : <=0.5. The reference r heriberto was not used to int erpret this result as normal/abnormal . [place] [id number] 22:36:00 Test Item Value Reference Range Interpretation Comments Acetaminoph Lvl (test code = 4 10-20 Acetaminoph Lvl) [place] [id number] 22:36:00 Test Item Value Reference Range Interpretation Comments Ethanol Lvl (test code = Ethanol Lvl) no gt [place] [id number] 22:36:00 Test Item Value Reference Range Interpretation Comments Etoh (%) (test code = Etoh (%)) [facility] gt [id number] 22:36:00 Test Item Value Reference Range Interpretation Comments Salicylate Lvl (test no gt See_Comment [Autom ated message] The code = Salicylate Lvl) syste m which generated this result tra nsmitted reference range : <=30.0. The reference r heriberto was not used to int erpret this result as normal/abnormal . [facility] [id number] 22:36:00 Test Item Value Reference Range Interpretation Comments Glucose Lvl (test code = Glucose Lvl) 85 70-99 [facility] [id number] 22:36:00 Test Item Value Reference Range Interpretation Comments BUN (test code = BUN) 9 7-22 [facility] [id number] 22:36:00 Test Item Value Reference Range Interpretation Comments Creatinine Lvl (test code = Creatinine 0.87 0.50-1.40 Lvl) [facility] [id number] 22:36:00 Test Item Value Reference Range Interpretation Comments Sodium Lvl (test code = Sodium Lvl) 139 135-145 [facility] [id number] 22:36:00 Test Item Value Reference Range Interpretation Comments Potassium Lvl (test code = Potassium 3.9 3.5-5.1 Lvl) [facility] [id number] 22:36:00 Test Item Value Reference Range Interpretation Comments Chloride Lvl (test code = Chloride Lvl) 106 95-109 [facility] [id number] 22:36:00 Test Item Value Reference Range Interpretation Comments CO2 (test code = CO2) 30 24-32 [facility] [id number] 22:36:00 Test Item Value Reference Range Interpretation Comments Calcium Lvl (test code = Calcium Lvl) 9.4 8.5-10.5 [facility] [id number] 22:36:00 Test Item Value Reference Range Interpretation Comments Total Protein (test code = Total 7.3 6.4-8.4 Protein) [address]11-05 22:36:00 Test Item Value Reference Range Interpretation Comments Albumin Lvl (test code = Albumin Lvl) 4.1 3.5-5.[address]11-05 22:36:00 Test Item Value Reference Range Interpretation Comments ALT (test code = ALT) 30 See_Comment [Auto mated message] The system which ge nerated this result transmit travis reference range : <=65. The reference range was not used to interpr et this result as vlad l/abnormal. [address]11-05 22:36:00 Test Item Value Reference Range Interpretation Comments AST (test code = AST) 16 See_Comment [Auto mated message] The system which ge nerated this result transmit travis reference range : <=37. The reference range was not used to interpr et this result as vlad l/abnormal. [address]11-05 22:36:00 Test Item Value Reference Range Interpretation Comments Alk Phos (test code = Alk Phos) 95 39-136 [address]11-05 22:36:00 Test Item Value Reference Range Interpretation Comments Bili Total (test code = Bili Total) 0.5 0.2-1.[address]11-05 22:36:00 Test Item Value Reference Range Interpretation Comments AGAP (test code = AGAP) 6.9 10.0-20.0 [address]11-05 22:36:00 Test Item Value Reference Range Interpretation Comments B/C Ratio (test code = B/C Ratio) 10 1 6-[address]11-05 22:36:00 Test Item Value Reference Range Interpretation Comments Globulin (test code = Globulin) 3.2 2.7-4.[address]11-05 22:36:00 Test Item Value Reference Range Interpretation Comments A/G Ratio (test code = A/G Ratio) 1.3 1 0.7-1.[address]11-05 22:36:00 Test Item Value Reference Range Interpretation Comments eGFR (test code = eGFR) 124 [place] 555721-11-05 22:36:00 Test Item Value Reference Range Interpretation Comments WBC (test code = WBC) 6.1 3.7-10.4 [facility]ImklrjxRTYXXAUADB8931-92-83 22:36:00 Test Item Value Reference Range Interpretation Comments RBC (test code = RBC) 4.42 4.70-6.10 [facility] DallasVndzidrJZWGOJCKZN4937-89-71 22:36:00 Test Item Value Reference Range Interpretation Comments Hgb (test code = Hgb) 13.6 14.0-18.0 [facility] DallasKfsfzrwVLYKAQGGTF0324-14-40 22:36:00 Test Item Value Reference Range Interpretation Comments Hct (test code = Hct) 40.0 42.0-54.0 [facility] DallasOzxjhmeESYVWPEYEY0601-13-20 22:36:00 Test Item Value Reference Range Interpretation Comments MCV (test code = MCV) 90.4 80.0-94.0 [facility] DallasYrkiynjLAWJGXXOUB8765-55-42 22:36:00 Test Item Value Reference Range Interpretation Comments MCH (test code = MCH) 30.8 pg 27.0-31.0 [facility] DallasHtonjfqWVZAKDVVBI7902-58-25 22:36:00 Test Item Value Reference Range Interpretation Comments MCHC (test code = MCHC) 34.0 32.0-36.0 [facility] DallasJbucfivXXWESNKJSJ7392-08-84 22:36:00 Test Item Value Reference Range Interpretation Comments RDW (test code = RDW) 14.3 11.5-14.5 [facility] DallasIchqwmxNDLJXWGVLZ9697-19-96 22:36:00 Test Item Value Reference Range Interpretation Comments Platelet (test code = Platelet) 221 133-450 [facility] DallasQwpogofAFOWIRKZHE6440-79-76 22:36:00 Test Item Value Reference Range Interpretation Comments MPV (test code = MPV) 9.8 7.4-10.4 [facility] DallasLwjrnhbCNKNQOTNXQ4821-84-95 22:36:00 Test Item Value Reference Range Interpretation Comments Segs (test code = Segs) 59.7 45.0-75.0 [facility] DallasCcpjsrhCYCVWYLDFT1314-82-01 22:36:00 Test Item Value Reference Range Interpretation Comments Lymphocytes (test code = Lymphocytes) 30.3 20.0-40.0 [facility] DallasZdsmkmdJSFRMLYEHV1094-78-99 22:36:00 Test Item Value Reference Range Interpretation Comments Monocytes (test code = Monocytes) 6.6 2.0-12.0 [place] [address]721-11-05 22:36:00 Test Item Value Reference Range Interpretation Comments Eosinophils (test code = 2.9 See_Comment [A utomated message] The Eosinophils) system which ge nerated this result tra nsmitted reference range : <=4.0. The reference r heriberto was not used to int erpret this result as normal/abnormal . [place] 555721-11-05 22:36:00 Test Item Value Reference Range Interpretation Comments Basophils (test code = 0.5 See_Comment [Aut omated message] The Basophils) system which ge nerated this result tra nsmitted reference range : <=1.0. The reference r heriberto was not used to int erpret this result as normal/abnormal . [place] [address]721-11-05 22:36:00 Test Item Value Reference Range Interpretation Comments Neutrophils # (test code = Neutrophils 3.7 1.5-8.1 #) [place] [address]-11-05 22:36:00 Test Item Value Reference Range Interpretation Comments Lymphocytes # (test code = Lymphocytes 1.8 1.0-5.5 #) [place] [address]-11-05 22:36:00 Test Item Value Reference Range Interpretation Comments Monocytes # (test code 0.4 See_Comment [Aut omated message] The = Monocytes #) system which generated this result tra nsmitted reference range : <=0.8. The reference r heriberto was not used to int erpret this result as normal/abnormal . [place] [address]721-11-05 22:36:00 Test Item Value Reference Range Interpretation Comments Eosinophils # (test code 0.2 See_Comment [A utomated message] The = Eosinophils #) system whic h generated this result tra nsmitted reference range : <=0.5. The reference r heriberto was not used to int erpret this result as normal/abnormal . [place] 22547021-11-05 22:36:00 Test Item Value Reference Range Interpretation Comments Acetaminoph Lvl (test code = 4 10-20 Acetaminoph Lvl) [place] 677281-11-05 22:36:00 Test Item Value Reference Range Interpretation Comments Ethanol Lvl (test code = Ethanol Lvl) no gt [place] [id number] 22:36:00 Test Item Value Reference Range Interpretation Comments Etoh (%) (test code = Etoh (%)) no gt [place] [id number] 22:36:00 Test Item Value Reference Range Interpretation Comments Salicylate Lvl (test no gt See_Comment [Autom ated message] The code = Salicylate Lvl) syste m which generated this result tra nsmitted reference range : <=30.0. The reference r heriberto was not used to int erpret this result as normal/abnormal . [facility] [id number] 22:36:00 Test Item Value Reference Range Interpretation Comments Glucose Lvl (test code = Glucose Lvl) 85 70-99 [facility] [id number] 22:36:00 Test Item Value Reference Range Interpretation Comments Glucose Lvl (test code = Glucose Lvl) 85 70-99 [facility] [id number] 22:36:00 Test Item Value Reference Range Interpretation Comments BUN (test code = BUN) 9 11-17 [facility] CenterElephantTalk CommunicationsATRIUM HEALTH [id number] 22:36:00 Test Item Value Reference Range Interpretation Comments Creatinine Lvl (test code = Creatinine 0.87 0.50-1.40 Lvl) [facility]2021-11-05 22:36:00 Test Item Value Reference Range Interpretation Comments Sodium Lvl (test code = Sodium Lvl) 139 135-145 [facility] Center[facility] [id number] 22:36:00 Test Item Value Reference Range Interpretation Comments Potassium Lvl (test code = Potassium 3.9 3.5-5.1 Lvl) [facility] [id number] 22:36:00 Test Item Value Reference Range Interpretation Comments Chloride Lvl (test code = Chloride Lvl) 106 95-109 [facility]2021-11-05 22:36:00 Test Item Value Reference Range Interpretation Comments BUN (test code = BUN) 9 - [place] 991111-11-05 22:36:00 Test Item Value Reference Range Interpretation Comments CO2 (test code = CO2) 30 24-32 [place] 991111-11-05 22:36:00 Test Item Value Reference Range Interpretation Comments Calcium Lvl (test code = Calcium Lvl) 9.4 8.5-10.5 [address]11-05 22:36:00 Test Item Value Reference Range Interpretation Comments Total Protein (test code = Total 7.3 6.4-8.4 Protein) [address]11-05 22:36:00 Test Item Value Reference Range Interpretation Comments Albumin Lvl (test code = Albumin Lvl) 4.1 3.5-5.0 [address]11-05 22:36:00 Test Item Value Reference Range Interpretation Comments ALT (test code = ALT) 30 See_Comment [Auto mated message] The system which ge nerated this result transmit travis reference range : <=65. The reference range was not used to interpr et this result as vlad l/abnormal. [address]11-05 22:36:00 Test Item Value Reference Range Interpretation Comments AST (test code = AST) 16 See_Comment [Auto mated message] The system which ge nerated this result transmit travis reference range : <=37. The reference range was not used to interpr et this result as vlad l/abnormal. [address]11-05 22:36:00 Test Item Value Reference Range Interpretation Comments Alk Phos (test code = Alk Phos) 95 39-136 [place] 991111-11-05 22:36:00 Test Item Value Reference Range Interpretation Comments Bili Total (test code = Bili Total) 0.5 0.2-1.3 [address]11-05 22:36:00 Test Item Value Reference Range Interpretation Comments AGAP (test code = AGAP) 6.9 10.0-20.0 [address]11-05 22:36:00 Test Item Value Reference Range Interpretation Comments B/C Ratio (test code = B/C Ratio) 10 1 6-25 [place] [address]-11-05 22:36:00 Test Item Value Reference Range Interpretation Comments Creatinine Lvl (test code = Creatinine 0.87 0.50-1.40 Lvl) [address]11-05 22:36:00 Test Item Value Reference Range Interpretation Comments Globulin (test code = Globulin) 3.2 2.7-4.2 [place] 991111-11-05 22:36:00 Test Item Value Reference Range Interpretation Comments A/G Ratio (test code = A/G Ratio) 1.3 1 0.7-1.6 [place] 991111-11-05 22:36:00 Test Item Value Reference Range Interpretation Comments eGFR (test code = eGFR) 124 [place] [address]721-11-05 22:36:00 Test Item Value Reference Range Interpretation Comments WBC (test code = WBC) 6.1 3.7-10.[address]11-05 22:36:00 Test Item Value Reference Range Interpretation Comments RBC (test code = RBC) 4.42 4.70-6.10 [place] [address]-11-05 22:36:00 Test Item Value Reference Range Interpretation Comments Hgb (test code = Hgb) 13.6 14.0-18.0 [place] [address]-11-05 22:36:00 Test Item Value Reference Range Interpretation Comments Hct (test code = Hct) 40.0 42.0-54.0 [place] [address]-11-05 22:36:00 Test Item Value Reference Range Interpretation Comments MCV (test code = MCV) 90.4 80.0-94.0 [place] [address]721-11-05 22:36:00 Test Item Value Reference Range Interpretation Comments MCH (test code = MCH) 30.8 pg 27.0-31.0 [place] [address]721-11-05 22:36:00 Test Item Value Reference Range Interpretation Comments MCHC (test code = MCHC) 34.0 32.0-36.0 [place] 991111-11-05 22:36:00 Test Item Value Reference Range Interpretation Comments Sodium Lvl (test code = Sodium Lvl) 139 135-145 [place] [address]721-11-05 22:36:00 Test Item Value Reference Range Interpretation Comments RDW (test code = RDW) 14.3 11.5-14.5 [place] [address]-11-05 22:36:00 Test Item Value Reference Range Interpretation Comments Platelet (test code = Platelet) 221 133-450 [place] [address]721-11-05 22:36:00 Test Item Value Reference Range Interpretation Comments MPV (test code = MPV) 9.8 7.4-10.4 [facility] DallasKbellomFHFDFITUAH1020-78-77 22:36:00 Test Item Value Reference Range Interpretation Comments Segs (test code = Segs) 59.7 45.0-75.0 [facility] DallasHzebvjyIZVEVZLWJC8312-81-20 22:36:00 Test Item Value Reference Range Interpretation Comments Lymphocytes (test code = Lymphocytes) 30.3 20.0-40.0 [facility] DallasYbxhqvbGIWTLPJLZT3080-05-13 22:36:00 Test Item Value Reference Range Interpretation Comments Monocytes (test code = Monocytes) 6.6 2.0-12.0 [place] [address]-11-05 22:36:00 Test Item Value Reference Range Interpretation Comments Eosinophils (test code = 2.9 See_Comment [A utomated message] The Eosinophils) system which ge nerated this result tra nsmitted reference range : <=4.0. The reference r heriberto was not used to int erpret this result as normal/abnormal . [facility] DallasTkpxbmlRACMTZTBAX7528-37-68 22:36:00 Test Item Value Reference Range Interpretation Comments Basophils (test code = 0.5 See_Comment [Aut omated message] The Basophils) system which ge nerated this result tra nsmitted reference range : <=1.0. The reference r heriberto was not used to int erpret this result as normal/abnormal . [place] [address]-11-05 22:36:00 Test Item Value Reference Range Interpretation Comments Neutrophils # (test code = Neutrophils 3.7 1.5-8.1 #) [place] [address]-11-05 22:36:00 Test Item Value Reference Range Interpretation Comments Lymphocytes # (test code = Lymphocytes 1.8 1.0-5.5 #) [facility]2021-11-05 22:36:00 Test Item Value Reference Range Interpretation Comments Potassium Lvl (test code = Potassium 3.9 3.5-5.1 Lvl) [place] [address]-11-05 22:36:00 Test Item Value Reference Range Interpretation Comments Monocytes # (test code 0.4 See_Comment [Aut omated message] The = Monocytes #) system which generated this result tra nsmitted reference range : <=0.8. The reference r heriberto was not used to int erpret this result as normal/abnormal . [facility] DallasEzerbuqFUOPUSCSYP5770-20-82 22:36:00 Test Item Value Reference Range Interpretation Comments Eosinophils # (test code 0.2 See_Comment [A utomated message] The = Eosinophils #) system whic h generated this result tra nsmitted reference range : <=0.5. The reference r heriberto was not used to int erpret this result as normal/abnormal . [facility] CenterIzoiovyFRGZTYUZGQ0511-13-85 22:36:00 Test Item Value Reference Range Interpretation Comments Acetaminoph Lvl (test code = 4 10-20 Acetaminoph Lvl) [place] 677281-11-05 22:36:00 Test Item Value Reference Range Interpretation Comments Ethanol Lvl (test code = Ethanol Lvl) no gt [place] 677281-11-05 22:36:00 Test Item Value Reference Range Interpretation Comments Etoh (%) (test code = Etoh (%)) [facility] gt [facility]KJ0045-94-75 22:36:00 Test Item Value Reference Range Interpretation Comments Salicylate Lvl (test no gt See_Comment [Autom ated message] The code = Salicylate Lvl) syste m which generated this result tra nsmitted reference range : <=30.0. The reference r heriberto was not used to int erpret this result as normal/abnormal . [facility] Center[facility] [id number] 22:36:00 Test Item Value Reference Range Interpretation Comments Chloride Lvl (test code = Chloride Lvl) 106 95-109 [facility] [id number] 22:36:00 Test Item Value Reference Range Interpretation Comments CO2 (test code = CO2) 30 24-32 [facility] [id number] 22:36:00 Test Item Value Reference Range Interpretation Comments Calcium Lvl (test code = Calcium Lvl) 9.4 8.5-10.5 [facility] [id number] 22:36:00 Test Item Value Reference Range Interpretation Comments Total Protein (test code = Total 7.3 6.4-8.4 Protein) [facility] [id number] 22:36:00 Test Item Value Reference Range Interpretation Comments Albumin Lvl (test code = Albumin Lvl) 4.1 3.5-5.0 [place] 991111-11-05 22:36:00 Test Item Value Reference Range Interpretation Comments ALT (test code = ALT) 30 See_Comment [Auto mated message] The system which ge nerated this result transmit travis reference range : <=65. The reference range was not used to interpr et this result as vlad l/abnormal. [facility] [id number] 22:36:00 Test Item Value Reference Range Interpretation Comments AST (test code = AST) 16 See_Comment [Auto mated message] The system which ge nerated this result transmit travis reference range : <=37. The reference range was not used to interpr et this result as vlad l/abnormal. [facility] [id number] 22:36:00 Test Item Value Reference Range Interpretation Comments Alk Phos (test code = Alk Phos) 95 39-136 [facility] [id number] 22:36:00 Test Item Value Reference Range Interpretation Comments Bili Total (test code = Bili Total) 0.5 0.2-1.3 [facility] [id number] 22:36:00 Test Item Value Reference Range Interpretation Comments AGAP (test code = AGAP) 6.9 10.0-20.0 [facility] [id number] 22:36:00 Test Item Value Reference Range Interpretation Comments B/C Ratio (test code = B/C Ratio) 10 1 6-25 [facility] [id number] 22:36:00 Test Item Value Reference Range Interpretation Comments Globulin (test code = Globulin) 3.2 2.7-4.2 [facility] [id number] 22:36:00 Test Item Value Reference Range Interpretation Comments A/G Ratio (test code = A/G Ratio) 1.3 1 0.7-1.6 [facility] [id number] 22:36:00 Test Item Value Reference Range Interpretation Comments eGFR (test code = eGFR) 124 [facility] HospitalMlvoqjcYGVPAKMKYP4695-76-62 22:36:00 Test Item Value Reference Range Interpretation Comments WBC (test code = WBC) 6.1 3.7-10.4 [place] [address]721-11-05 22:36:00 Test Item Value Reference Range Interpretation Comments RBC (test code = RBC) 4.42 4.70-6.10 [place] 555721-11-05 22:36:00 Test Item Value Reference Range Interpretation Comments Hgb (test code = Hgb) 13.6 14.0-18.0 [place] [address]721-11-05 22:36:00 Test Item Value Reference Range Interpretation Comments Hct (test code = Hct) 40.0 42.0-54.0 [place] [address]721-11-05 22:36:00 Test Item Value Reference Range Interpretation Comments MCV (test code = MCV) 90.4 80.0-94.0 [place] 555721-11-05 22:36:00 Test Item Value Reference Range Interpretation Comments MCH (test code = MCH) 30.8 pg 27.0-31.0 [place] 555721-11-05 22:36:00 Test Item Value Reference Range Interpretation Comments MCHC (test code = MCHC) 34.0 32.0-36.0 [place] 555721-11-05 22:36:00 Test Item Value Reference Range Interpretation Comments RDW (test code = RDW) 14.3 11.5-14.5 [place] 555721-11-05 22:36:00 Test Item Value Reference Range Interpretation Comments Platelet (test code = Platelet) 221 133-450 [facility] DallasGzvlnnzBMYRVDPCSD1428-70-59 22:36:00 Test Item Value Reference Range Interpretation Comments MPV (test code = MPV) 9.8 7.4-10.4 [place] [address]721-11-05 22:36:00 Test Item Value Reference Range Interpretation Comments Segs (test code = Segs) 59.7 45.0-75.0 [place] 555721-11-05 22:36:00 Test Item Value Reference Range Interpretation Comments Lymphocytes (test code = Lymphocytes) 30.3 20.0-40.0 [place] [address]-11-05 22:36:00 Test Item Value Reference Range Interpretation Comments Monocytes (test code = Monocytes) 6.6 2.0-12.0 [place] [address]-11-05 22:36:00 Test Item Value Reference Range Interpretation Comments Eosinophils (test code = 2.9 See_Comment [A utomated message] The Eosinophils) system which ge nerated this result tra nsmitted reference range : <=4.0. The reference r heriberto was not used to int erpret this result as normal/abnormal . [place] [address]721-11-05 22:36:00 Test Item Value Reference Range Interpretation Comments Basophils (test code = 0.5 See_Comment [Aut omated message] The Basophils) system which ge nerated this result tra nsmitted reference range : <=1.0. The reference r heriberto was not used to int erpret this result as normal/abnormal . [place] 555721-11-05 22:36:00 Test Item Value Reference Range Interpretation Comments Neutrophils # (test code = Neutrophils 3.7 1.5-8.1 #) [place] [address]-11-05 22:36:00 Test Item Value Reference Range Interpretation Comments Lymphocytes # (test code = Lymphocytes 1.8 1.0-5.5 #) [place] [address]721-11-05 22:36:00 Test Item Value Reference Range Interpretation Comments Monocytes # (test code 0.4 See_Comment [Aut omated message] The = Monocytes #) system which generated this result tra nsmitted reference range : <=0.8. The reference r heriberto was not used to int erpret this result as normal/abnormal . [facility] DallasFqiacwmCZIJRHYASN3610-38-88 22:36:00 Test Item Value Reference Range Interpretation Comments Eosinophils # (test code 0.2 See_Comment [A utomated message] The = Eosinophils #) system whic h generated this result tra nsmitted reference range : <=0.5. The reference r heriberto was not used to int erpret this result as normal/abnormal . [facility] CenterSoewvryZQUQDLQNEY6215-24-86 22:36:00 Test Item Value Reference Range Interpretation Comments Acetaminoph Lvl (test code = 4 10-20 Acetaminoph Lvl) [place] 677281-11-05 22:36:00 Test Item Value Reference Range Interpretation Comments Ethanol Lvl (test code = Ethanol Lvl) no gt [place] [id number] 22:36:00 Test Item Value Reference Range Interpretation Comments Etoh (%) (test code = Etoh (%)) no gt [facility] HospitalZlfqazjGSOYGNTANF7769-13-42 22:36:00 Test Item Value Reference Range Interpretation Comments Salicylate Lvl (test no gt See_Comment [Autom ated message] The code = Salicylate Lvl) syste m which generated this result tra nsmitted reference range : <=30.0. The reference r heriberto was not used to int erpret this result as normal/abnormal . [facility] [id number] 22:36:00 Test Item Value Reference Range Interpretation Comments Glucose Lvl (test code = Glucose Lvl) 85 70-99 [place] 991111-11-05 22:36:00 Test Item Value Reference Range Interpretation Comments BUN (test code = BUN) 9 7-22 [place] 991111-11-05 22:36:00 Test Item Value Reference Range Interpretation Comments Creatinine Lvl (test code = Creatinine 0.87 0.50-1.40 Lvl) [place] 991111-11-05 22:36:00 Test Item Value Reference Range Interpretation Comments Sodium Lvl (test code = Sodium Lvl) 139 135-145 [place] 991111-11-05 22:36:00 Test Item Value Reference Range Interpretation Comments Potassium Lvl (test code = Potassium 3.9 3.5-5.1 Lvl) [place] 991111-11-05 22:36:00 Test Item Value Reference Range Interpretation Comments Chloride Lvl (test code = Chloride Lvl) 106 95-109 [place] 991111-11-05 22:36:00 Test Item Value Reference Range Interpretation Comments CO2 (test code = CO2) 30 24-32 [place] 991111-11-05 22:36:00 Test Item Value Reference Range Interpretation Comments Calcium Lvl (test code = Calcium Lvl) 9.4 8.5-10.5 [place] 991111-11-05 22:36:00 Test Item Value Reference Range Interpretation Comments Total Protein (test code = Total 7.3 6.4-8.4 Protein) [place] 991111-11-05 22:36:00 Test Item Value Reference Range Interpretation Comments Albumin Lvl (test code = Albumin Lvl) 4.1 3.5-5.0 [facility] CenterElephantTalk Communications[address]11-05 22:36:00 Test Item Value Reference Range Interpretation Comments ALT (test code = ALT) 30 See_Comment [Auto mated message] The system which ge nerated this result transmit travis reference range : <=65. The reference range was not used to interpr et this result as vlad l/abnormal. [facility] Center[facility] [id number] 22:36:00 Test Item Value Reference Range Interpretation Comments AST (test code = AST) 16 See_Comment [Auto mated message] The system which ge nerated this result transmit travis reference range : <=37. The reference range was not used to interpr et this result as vlad l/abnormal. [facility] Center[facility] [id number] 22:36:00 Test Item Value Reference Range Interpretation Comments Alk Phos (test code = Alk Phos) 95 39-136 [facility] [id number] 22:36:00 Test Item Value Reference Range Interpretation Comments Bili Total (test code = Bili Total) 0.5 0.2-1.3 [facility] [id number] 22:36:00 Test Item Value Reference Range Interpretation Comments AGAP (test code = AGAP) 6.9 10.0-20.0 [facility] [id number] 22:36:00 Test Item Value Reference Range Interpretation Comments B/C Ratio (test code = B/C Ratio) 10 1 6-25 [facility] [id number] 22:36:00 Test Item Value Reference Range Interpretation Comments Globulin (test code = Globulin) 3.2 2.7-4.2 [facility] [id number] 22:36:00 Test Item Value Reference Range Interpretation Comments A/G Ratio (test code = A/G Ratio) 1.3 1 0.7-1.6 [facility] Center[facility] [id number] 22:36:00 Test Item Value Reference Range Interpretation Comments eGFR (test code = eGFR) [address]11-05 22:36:00 Test Item Value Reference Range Interpretation Comments WBC (test code = WBC) 6.1 3.7-10.[address]11-05 22:36:00 Test Item Value Reference Range Interpretation Comments RBC (test code = RBC) 4.42 4.70-6.10 [id number] 22:36:00 Test Item Value Reference Range Interpretation Comments Hgb (test code = Hgb) 13.6 14.0-18.0 [id number] 22:36:00 Test Item Value Reference Range Interpretation Comments Hct (test code = Hct) 40.0 42.0-54.0 [facility] [id number] 22:36:00 Test Item Value Reference Range Interpretation Comments MCV (test code = MCV) 90.4 80.0-94.0 [facility] [id number] 22:36:00 Test Item Value Reference Range Interpretation Comments MCH (test code = MCH) 30.8 pg 27.0-31.0 [facility]
[2022-04-19] MEDS ORDERED: ACETAMINOPHEN 500 MG TAB ONE (05:21)
[2022-04-19] MEDS ORDERED: KETOROLAC 30 MG/ML INJ ONE (05:22)
[2022-04-19] MEDS ORDERED: METOCLOPRAMIDE 5 MG TAB ONE (05:31)
[2022-04-19] MEDS ORDERED: DIPHENHYDRAMINE 25 MG TAB/CAP ONE (05:31)
--- NOTE | 2022-04-19 05:31 | ER ---
Nurse's Notes [facility] Name: Guy Sifuentes Age: 21 yrs Sex: Male : 2000 Arrival Date: 04/19/2022 Time: 04:54 Bed 13 Private MD: Diagnosis: Migraine without aura, not intractable Presentation: 04/19 05:03 Chief complaint: Patient states: he has been having headaches off and on for several bb months now making his right eye feel irritated. Coronavirus screen: At this time, the client does not indicate any symptoms associated with coronavirus-19. Ebola Screen: No symptoms or risks identified at this time. 05:03 Method Of Arrival: Ambulatory bb 05:05 Initial Sepsis Screen: Does the patient meet any 2 criteria? No. Patient's initial bb sepsis screen is negative. Does the patient have a suspected source of infection? No. Patient's initial sepsis screen is negative. Risk Assessment: Do you want to hurt yourself or someone else? Patient reports no desire to harm self or others. Onset of symptoms is unknown. 05:05 Acuity: ZULEIKA 4 bb Historical: - Allergies: 05:05 No Known Allergies; bb - Home Meds: 05:05 None [Active]; bb - PMHx: 05:05 Migraines; bb - PSHx: 05:05 None; bb - Immunization history:: pt states he is vaccinated . - Social history:: Smoking status: Patient denies any tobacco usage or history of. Patient uses street drugs, marijuana, Patient/guardian denies using alcohol. Screenin:10 [facility] ED Fall Risk Assessment (Adult) History of falling in the last 3 months, pf1 including since admission No falls in past 3 months (0 pts) Confusion or Disorientation No (0 pts) Intoxicated or Sedated No (0 pts) Impaired Gait No (0 pts) Mobility Assist Device Used No (0 pt) Altered Elimination No (0 pt) Score/Fall Risk Level 0 - 2 = Low Risk Oriented to surroundings, Maintained a safe environment, Educated pt \T\ family on fall prevention, incl call for assistance when getting out of bed, Assessed \T\ reinforced patient's understanding of fall precautions, Provided non-skid footwear, Hourly rounding (assess needs \T\ fall precautionary measures) done, Used ambulatory aids as needed (educated on \T\ assisted with), Used gait belt as appropriate. Abuse screen: Denies threats or abuse. Nutritional screening: No deficits noted. Tuberculosis screening: No symptoms or risk factors identified. Assessment: 05:00 General: Appears in no apparent distress. comfortable, well groomed, well developed, pf1 Behavior is calm, cooperative, appropriate for age, quiet. Pain: Complains of pain in head Pain radiates to right eye Pain currently is 9 out of 10 on a pain scale. Pain began Patient stated headache has been intermittently for 1 year. 05:00 Neuro: Level of Consciousness is awake, alert, obeys commands, Oriented to person, pf1 place, time, situation, Reports headache in entire photophobia. Cardiovascular: No deficits noted. Capillary refill < 3 seconds. Respiratory: No deficits noted. Airway is patent Respiratory effort is even, unlabored, Respiratory pattern is regular, symmetrical, Breath sounds are clear bilaterally. GI: No deficits noted. No signs and/or symptoms were reported involving the gastrointestinal system. : No deficits noted. No signs and/or symptoms were reported regarding the genitourinary system. EENT: Reports pain in right eye Pain is 9 out of 10 on a pain scale. photophobia. Derm: No deficits noted. No signs and/or symptoms reported regarding the dermatologic system. Musculoskeletal: No deficits noted. No signs and/or symptoms reported regarding the musculoskeletal system. Vital Signs: 05:03 BP 143 / 91; Pulse 63; Resp 16 S; Temp 98.9(O); Pulse Ox 99% on R/A; Weight 74.84 kg bb (R); Height 5 ft. 9 in. (175.26 cm) (R); Pain 9/10; 05:27 BP 129 / 99; Pulse 68; Resp 18; Pulse Ox 99% on R/A; Pain 9/10; pf1 05:39 BP 125 / 79; Pulse 60; Resp 18; Temp 98.6; Pulse Ox 100% ; Pain 7/10; pf1 05:03 Body Mass Index 24.37 (74.84 kg, 175.26 cm) bb Cely Coma Score: 05:09 Eye Response: spontaneous(4). Verbal Response: oriented(5). Motor Response: obeys pf1 commands(6). Total: 15. ED Course: 04:54 Patient arrived in ED. jj6 04:56 Jade Jeffers MD is Attending Physician. sd2 05:05 Triage completed. bb 05:05 Arm band placed on Patient placed in an exam room, on a stretcher, on pulse oximetry. bb 05:05 Patient has correct armband on for positive identification. Bed in low position. Call pf1 light in reach. 05:07 Violeta martinez, GURWINDER is Primary Nurse. pf1 05:28 No provider procedures requiring assistance completed. Patient did not have IV access pf1 during this emergency room visit. 05:29 Andrea Moreno MD is Referral Physician. sd2 Administered Medications: 05:22 Drug: Tylenol 1000 mg Route: PO; pf1 05:40 Follow up: Response: No adverse reaction; Pain is decreased; RASS: Alert and Calm (0) pf1 05:27 Not Given (Patient Refused): Ketorolac 30 mg IM once pf1 05:30 Drug: Reglan (metoCLOPramide) 10 mg Route: PO; pf1 05:39 Follow up: Response: No adverse reaction; Pain is decreased; RASS: Alert and Calm (0) pf1 05:30 Drug: Benadryl (diphenhydrAMINE) 25 mg Route: PO; pf1 05:39 Follow up: Response: No adverse reaction; Pain is decreased; RASS: Alert and Calm (0) pf1 Medication: 05:10 VIS not applicable for this client. pf1 Outcome: 05:30 Discharge ordered by . sd2 05:40 Discharged to home ambulatory. pf1 05:40 Condition: stable 05:40 Discharge instructions given to patient, Instructed on discharge instructions, follow up and referral plans. Demonstrated understanding of instructions, follow-up care. 05:40 Patient left the ED. pf1 Signatures: Dia Mckinnon RN RN bb Cayla Jean jj6 Jade Jeffers MD MD sd2 Violeta martinez, GURWINDER RN pf1
--- NOTE | 2022-04-19 05:31 | EDPHYS ---
Physician Documentation [facility] Name: Guy Sifuentes Age: 21 yrs Sex: Male : 2000 Arrival Date: 04/19/2022 Time: 04:54 Bed 13 Private MD: ED Physician Jade Jeffers HPI: 04/19 05:16 This 21 yrs old Male presents to ER via Ambulatory with complaints of Eye sd2 Pain, Redness of Eye. 05:16 This 21 yrs old Male presents to ER via Ambulatory with complaints of Headache.sd2 05:16 21 yo M presents with CC of headache. Headaches have been ongoing for the past 1.5 sd2 years and patient has had numerous CT scans and workups in ERs that have been negative. Pt reports he was scheduled to see Neurology this month but was working out of town and missed his appointment and has not yet rescheduled. Reports pain worsened this morning and caused pain behind his right eye with some light sensitivity and nausea consistent with his prior headaches. Denies fever or recent illness, numbness, tingling or weakness. Took Ibuprofen at home with no relief.. Historical: - Allergies: 05:05 No Known Allergies; bb - Home Meds: 05:05 None [Active]; bb - PMHx: 05:05 Migraines; bb - PSHx: 05:05 None; bb - Immunization history:: pt states he is vaccinated . - Social history:: Smoking status: Patient denies any tobacco usage or history of. Patient uses street drugs, marijuana, Patient/guardian denies using alcohol. ROS: 05:16 Constitutional: Negative for fever, chills, and weight loss, Eyes: Negative for injury, sd2 pain, redness, and discharge, Positive for photophobia Cardiovascular: Negative for chest pain, palpitations, and edema, Respiratory: Negative for shortness of breath, cough, wheezing. Abdomen/GI: Negative for abdominal pain, nausea, vomiting, diarrhea. MS/Extremity: Negative for injury and deformity, Skin: Negative for injury, rash, and discoloration, Neuro: Positive for headache, Negative for numbness and tingling. Exam: 05:16 Constitutional: This is a well developed, well nourished patient who is awake, alert, sd2 and in no acute distress. Head/Face: Normocephalic, atraumatic. Eyes: EOMI, normal conjunctiva bilaterally, no pain with EOM Chest/axilla: Normal chest wall appearance and motion. Nontender with no deformity. Cardiovascular: Regular rate and rhythm with a normal S1 and S2. No gallops, murmurs, or rubs. 2+ distal pulses. Respiratory: Lungs have equal breath sounds bilaterally, clear to auscultation and percussion. No rales, rhonchi or wheezes noted. No increased work of breathing, no retractions or nasal flaring. Abdomen/GI: Soft, non-tender, with normal bowel sounds. No guarding or rebound. No evidence of tenderness throughout. Skin: Warm, dry with normal turgor. Normal color with no rashes, no lesions, and no evidence of cellulitis. MS/ Extremity: Pulses equal, no cyanosis. Neurovascular intact. Full, normal range of motion. Ambulatory without difficulty. Neuro: Awake and alert, GCS 15, oriented to person, place, time, and situation. Cranial nerves II-XII grossly intact. Motor strength 5/5 in all extremities. Sensory grossly intact. Cerebellar exam normal. Normal gait. Psych: Awake, alert, with orientation to person, place and time. Behavior, mood, and affect are within normal limits. Vital Signs: 05:03 BP 143 / 91; Pulse 63; Resp 16 S; Temp 98.9(O); Pulse Ox 99% on R/A; Weight 74.84 kg bb (R); Height 5 ft. 9 in. (175.26 cm) (R); Pain 9/10; 05:27 BP 129 / 99; Pulse 68; Resp 18; Pulse Ox 99% on R/A; Pain 9/10; pf1 05:39 BP 125 / 79; Pulse 60; Resp 18; Temp 98.6; Pulse Ox 100% ; Pain 7/10; pf1 05:03 Body Mass Index 24.37 (74.84 kg, 175.26 cm) bb Cely Coma Score: 05:09 Eye Response: spontaneous(4). Verbal Response: oriented(5). Motor Response: obeys pf1 commands(6). Total: 15. MDM: 05:07 Patient medically screened. sd2 05:16 Differential diagnosis: Differential diagnosis includes but is not limited to: Tension sd2 headache, migraine headache, intracranial hemorrhage, dehydration, electrolyte abnormality, musculoskeletal, meningitis among others. Data reviewed: vital signs, nurses notes, old medical records. Counseling: I had a detailed discussion with the patient and/or guardian regarding: the historical points, exam findings, and any diagnostic results supporting the discharge/admit diagnosis, the need for outpatient follow up, to return to the emergency department if symptoms worsen or persist or if there are any questions or concerns that arise at home. Medical screen evaluation completed. [facility] emergency medical condition absent. ED course: Patient with ongoing history of headaches for 1.5 years. This is not an acute change or abrupt onset. Has had prior head imaging. No focal neuro deficits on exam. Advised patient on importance of following up with Neurology for further evaluation and treatment of his symptoms. He verbalizes understanding of discharge plan and strict return precautions. . 05:27 ED course: Pt declined Toradol stating it does not work for him. He has had it numerous sd2 times in the past and been discharged home with improved symptoms per records but now patient is asking for something stronger. He did accept the Tylenol. PO Reglan and Benadryl ordered instead and patient to follow up outpatient with Neurology. . Administered Medications: 05:22 Drug: Tylenol 1000 mg Route: PO; pf1 05:40 Follow up: Response: No adverse reaction; Pain is decreased; RASS: Alert and Calm (0) pf1 05:27 Not Given (Patient Refused): Ketorolac 30 mg IM once pf1 05:30 Drug: Reglan (metoCLOPramide) 10 mg Route: PO; pf1 05:39 Follow up: Response: No adverse reaction; Pain is decreased; RASS: Alert and Calm (0) pf1 05:30 Drug: Benadryl (diphenhydrAMINE) 25 mg Route: PO; pf1 05:39 Follow up: Response: No adverse reaction; Pain is decreased; RASS: Alert and Calm (0) pf1 Disposition Summary: 04/19/22 05:30 Discharge Ordered Location: Home sd2 Problem: an ongoing problem sd2 Symptoms: have improved sd2 Condition: Stable sd2 Diagnosis - Migraine without aura, not intractable sd2 Followup: sd2 - With: Andrea Moreno MD - When: 2 - 3 days - Reason: Recheck today's complaints, Continuance of care, Re-evaluation by your physician Discharge Instructions: - Discharge Summary Sheet sd2 - Migraine Headache sd2 - Recurrent Migraine Headache sd2 Forms: - Medication Reconciliation Form sd2 - Thank You Letter sd2 - Antibiotic Education sd2 - Prescription Opioid Use sd2 Signatures: Dia Mckinnon, RN RN bb Jade Jeffers MD MD sd2 Violeta martinez RN RN pf1
[2022-04-19 05:48] VITALS: BP 125/79; TEMP 98.6; O2SAT 100
== END 2022-04-19 05:40 | disposition home or self-care (01) ==
LOC: ER 04:52
DX: G43.009 Migraine without aura, not intractable, without status migrainosus (principal)
CPT/HCPCS: 99283

== ENCOUNTER → 2023-04-20 | Emergency (ER) | payer BC ==
[~2023-04-20] MED LIST: AMOX/K CLAV 875 MG TAB ONE; CEFTRIAXONE 1000 MG/VIAL ONE; LIDOCAINE 1% MPF 5 ML VIAL ONE; dexAMETHasone 10 MG/ML VIAL ONE
--- NOTE | 2023-04-20 16:27 | ER ---
Nurse's Notes [facility] Name: Guy Sifuentes Age: 22 yrs Sex: Male : 2000 Arrival Date: 04/20/2023 Time: 12:32 Bed 11 Private MD: Diagnosis: Acute serous otitis media, bilateral;Acute upper respiratory infection, unspecified Presentation: 04/20 13:45 Chief complaint: Patient states: NASAL CONGESTION X6 MONTHS CAUSING A HEADACHE. jj7 Coronavirus screen: congestion. Ebola Screen: No symptoms or risks identified at this time. Resp Distress? No respiratory distress is noted at this time. Initial Sepsis Screen: Does the patient meet any 2 criteria? No. Patient's initial sepsis screen is negative. Does the patient have a suspected source of infection? No. Patient's initial sepsis screen is negative. Risk Assessment: Do you want to hurt yourself or someone else? Patient reports no desire to harm self or others. 13:45 Method Of Arrival: Ambulatory [facility] 13:45 Acuity: ZULEIKA 4 jj7 17:47 Onset of symptoms is unknown. ap3 Triage Assessment: 13:48 General: Appears in no apparent distress. uncomfortable, Behavior is calm, cooperative, jj7 appropriate for age. Pain: Complains of pain in HEADACHE. Respiratory: Reports NASAL CONGESTION Airway is patent. 17:47 Respiratory: Breath sounds are clear. ap3 Historical: - Allergies: 13:48 No Known Allergies; jj7 - PMHx: 13:48 Migraines; jj7 - PSHx: 13:48 None; jj7 - Immunization history:: Adult Immunizations up to date. - Social history:: Smoking status: Patient reports the use of cigarette tobacco products, Patient uses street drugs, marijuana, Patient/guardian denies using alcohol. - Family history:: not pertinent. Screenin:46 [facility] ED Fall Risk Assessment (Adult) History of falling in the last 3 months, ap3 including since admission No falls in past 3 months (0 pts). Abuse screen: Denies threats or abuse. Nutritional screening: No deficits noted. Tuberculosis screening: No symptoms or risk factors identified. Vital Signs: 13:45 BP 143 / 105; Pulse 77; Resp 17; Temp 98; Weight 79.38 kg; Height 5 ft. 9 in. ; Pain jj7 710; 17:48 BP 139 / 92; Pulse 82; Pulse Ox 100% ; ap3 13:45 Body Mass Index 25.84 (79.38 kg, 175.26 cm) [facility] 13:45 Pain Scale: Adult [facility] ED Course: 12:34 Patient arrived in ED. im 13:21 Adriel Anne MD is Attending Physician. [facility] 13:48 Triage completed. 7 13:48 Arm band placed on right wrist. 7 16:24 Ban Ibarra MD is Referral Physician. grant 17:47 Patient has correct armband on for positive identification. ap3 17:47 Provided Education on: discharge instructions. ap3 17:47 No provider procedures requiring assistance completed. Patient did not have IV access ap3 during this emergency room visit. Administered Medications: 17:45 Drug: Rocephin (cefTRIAXone) IM 1 grams IM once Route: IM; Site: right gluteus; ap3 17:48 Follow up: Response: No adverse reaction ap3 17:45 Drug: Amoxicillin-Clavulanate PO 875 mg PO once Route: PO; ap3 17:47 Follow up: Response: No adverse reaction ap3 17:45 Drug: Dexamethasone IM 10 mg IM once Route: IM; Site: left gluteus; ap3 17:47 Follow up: Response: No adverse reaction ap3 Medication: 17:47 VIS not applicable for this client. ap3 Outcome: 16:26 Discharge ordered by . grant 17:47 Discharged to home ambulatory, ap3 17:47 Condition: good 17:47 Discharge instructions given to patient, Instructed on discharge instructions, follow up and referral plans. medication usage, Demonstrated understanding of instructions, follow-up care, medications, Prescriptions given X 3, 17:48 Patient left the ED. ap3 Signatures: Adriel Anne MD MD cha Prokisch, Amanda RN RN ap3 Dru Scott RN RN jj7 Jyothi Perkins im
--- NOTE | 2023-04-20 16:27 | EDPHYS ---
Physician Documentation [facility] Name: Guy Sifuentes Age: 22 yrs Sex: Male : 2000 Arrival Date: 04/20/2023 Time: 12:32 Bed 11 Private MD: ED Physician Adriel Anne HPI: 04/20 16:19 This 22 yrs old Male presents to ER via Ambulatory with complaints of grant Congestion. 16:19 The patient or guardian reports airway noise, cough, flu symptoms, arthralgias, grant low-grade fever. Onset: The symptoms/episode began/occurred 3 day(s) ago. Modifying factors: The symptoms are alleviated by nothing. the symptoms are aggravated by nothing. Onset: The symptoms/episode began/occurred gradually. Severity of symptoms: At their worst the symptoms were moderate, in the emergency department the symptoms are unchanged. Associated signs and symptoms: Pertinent positives: fever, rhinorrhea, sore throat. Modifying factors: The symptoms are alleviated by nothing, the symptoms are aggravated by nothing. Severity of symptoms: At their worst the symptoms were mild moderate in the emergency department the symptoms are unchanged. The patient has experienced similar episodes in the past, a few times. Historical: - Allergies: 13:48 No Known Allergies; jj7 - PMHx: 13:48 Migraines; jj7 - PSHx: 13:48 None; jj7 - Immunization history:: Adult Immunizations up to date. - Social history:: Smoking status: Patient reports the use of cigarette tobacco products, Patient uses street drugs, marijuana, Patient/guardian denies using alcohol. - Family history:: not pertinent. ROS: 16:19 Constitutional: Negative for fever, chills, and weight loss, Eyes: Negative for injury, grant pain, redness, and discharge, Neck: Negative for injury, pain, and swelling, Cardiovascular: Negative for chest pain, palpitations, and edema, Respiratory: Negative for shortness of breath, cough, wheezing, and pleuritic chest pain, Abdomen/GI: Negative for abdominal pain, nausea, vomiting, diarrhea, and constipation, Back: Negative for injury and pain, : Negative for injury, bleeding, discharge, and swelling, MS/Extremity: Negative for injury and deformity, Skin: Negative for injury, rash, and discoloration, Neuro: Negative for headache, weakness, numbness, tingling, and seizure, Psych: Negative for depression, anxiety, suicide ideation, homicidal ideation, and hallucinations, Allergy/Immunology: Negative for hives, rash, and allergies, Endocrine: Negative for neck swelling, polydipsia, polyuria, polyphagia, and marked weight changes, 16:19 ENT: Positive for ear pain, rhinorrhea, sinus congestion, sinus pain, sore throat, Exam: 16:19 Constitutional: This is a well developed, well nourished patient who is awake, alert, grant and in no acute distress. Head/Face: Normocephalic, atraumatic. Eyes: Pupils equal round and reactive to light, extra-ocular motions intact. Lids and lashes normal. Conjunctiva and sclera are non-icteric and not injected. Cornea within normal limits. Periorbital areas with no swelling, redness, or edema. Neck: Trachea midline, no thyromegaly or masses palpated, and no cervical lymphadenopathy. Supple, full range of motion without nuchal rigidity, or vertebral point tenderness. No Meningismus. Chest/axilla: Normal chest wall appearance and motion. Nontender with no deformity. No lesions are appreciated. Cardiovascular: Regular rate and rhythm with a normal S1 and S2. No gallops, murmurs, or rubs. Normal PMI, no JVD. No pulse deficits. Respiratory: Lungs have equal breath sounds bilaterally, clear to auscultation and percussion. No rales, rhonchi or wheezes noted. No increased work of breathing, no retractions or nasal flaring. Abdomen/GI: Soft, non-tender, with normal bowel sounds. No distension or tympany. No guarding or rebound. No evidence of tenderness throughout. Back: No spinal tenderness. No costovertebral tenderness. Full range of motion. Male : Normal genitalia with no discharge or lesions. Skin: Warm, dry with normal turgor. Normal color with no rashes, no lesions, and no evidence of cellulitis. MS/ Extremity: Pulses equal, no cyanosis. Neurovascular intact. Full, normal range of motion. Neuro: Awake and alert, GCS 15, oriented to person, place, time, and situation. Cranial nerves II-XII grossly intact. Motor strength 5/5 in all extremities. Sensory grossly intact. Cerebellar exam normal. Normal gait. Psych: Awake, alert, with orientation to person, place and time. Behavior, mood, and affect are within normal limits. 16:19 ENT: Ear canal(s): are normal, no acute changes, TM's: decreased mobility, dullness, erythema, loss of bony landmarks, that is moderate, bilaterally, Vital Signs: 13:45 BP 143 / 105; Pulse 77; Resp 17; Temp 98; Weight 79.38 kg; Height 5 ft. 9 in. ; Pain jj7 7; 17:48 BP 139 / 92; Pulse 82; Pulse Ox 100% ; ap3 13:45 Body Mass Index 25.84 (79.38 kg, 175.26 cm) j7 13:45 Pain Scale: Adult jj7 MDM: 13:57 Patient medically screened. [facility] 16:22 Differential diagnosis: obstructed airway, bronchitis, flu, URI. Antibiotic grant administration: The patient is discharged and will get outpatient antibiotics, Amoxicillin. Differential Diagnosis: Bronchitis Influenza Upper Respiratory Infection Sinusitis Pharyngitis Otitis Media Viral Syndrome Pneumonia. Data reviewed: vital signs, nurses notes. Consideration of Admission/Observation Patient was admitted/placed on observation. Escalation of care including admission/observation considered. I considered the following discharge prescriptions or medication management in the emergency department Medications were administered in the Emergency Department. See MAR. Test considered but Not performed: Labs: NO CBC , NO COMP MET. Historians other than the Patient: PT WELL INFORMED. Care significantly affected by the following chronic conditions: MIGRAINES. Counseling: I had a detailed discussion with the patient and/or guardian regarding the historical points, exam findings, and any diagnostic results supporting the discharge/admit diagnosis, the need for outpatient follow up. 04/20 13:22 Order name: Flu grant 04/20 13:22 Order name: SARS RAPID [facility] Administered Medications: 17:45 Drug: Rocephin (cefTRIAXone) IM 1 grams IM once Route: IM; Site: right gluteus; ap3 17:48 Follow up: Response: No adverse reaction ap3 17:45 Drug: Amoxicillin-Clavulanate PO 875 mg PO once Route: PO; ap3 17:47 Follow up: Response: No adverse reaction ap3 17:45 Drug: Dexamethasone IM 10 mg IM once Route: IM; Site: left gluteus; ap3 17:47 Follow up: Response: No adverse reaction ap3 Disposition Summary: 04/20/23 16:26 Discharge Ordered Notes: Location: Home [facility] Problem: new [facility] Symptoms: have improved [facility] Condition: Stable [facility] Diagnosis - Acute serous otitis media, bilateral [facility] - Acute upper respiratory infection, unspecified grant Followup: grant - With: Private Physician - When: 2 - 3 days - Reason: Recheck today's complaints, Continuance of care, Re-evaluation by your physician Followup: grant - With: Ban Ibarra MD - When: 2 - 3 days - Reason: Recheck today's complaints, Re-evaluation by your physician Discharge Instructions: - Discharge Summary Sheet grant - Otitis Media, Adult grant - Upper Respiratory Infection, Adult [facility] - Cool Mist Vaporizer garnt - Otitis Media, Adult, [id number] [facility] - Upper Respiratory Infection, Adult, Dyer-br-Earg [facility] - Cough, Adult [facility] Forms: - Medication Reconciliation Form [facility] - Thank You Letter [facility] - Antibiotic Education [facility] - Prescription Opioid Use [facility] - Patient Portal Instructions [facility] - Leadership Thank You Letter [facility] Prescriptions: - dexamethasone 2 mg Oral tablet - take 1 tablet ORAL route every 12 hours; 10 tablet; Refills: 0, Product [facility] Selection Permitted - Augmentin 875-125 mg Oral Tablet - take 1 tablet ORAL route every 12 hours for 10 days; 20 tablet; Refills: 0, [facility] Product Selection Permitted - Lis-D 12 Hour 60-120 mg Oral Tablet Sustained Release 12 hr - take 1 tablet ORAL route every 12 hours As needed; 20 tablet; Refills: 0, [facility] Product Selection Permitted Signatures: Dispatcher [employer] Adriel Hui MD MD cha Prokisch, Amanda RN RN ap3 Dru Scott RN RN jj7
[2023-04-20 17:00] LABS: SARS-CoV-2 Antigen Rapid Res Negative (Negative)
[2023-04-20 18:52] VITALS: TEMP 98.1
[2023-04-20 19:13] VITALS: BP 139/92; O2SAT 100
== END ==
LOC: ER 12:32
DX: H65.03 Acute serous otitis media, bilateral (principal); J06.9 Acute upper respiratory infection, unspecified; Z11.52 Encounter for screening for COVID-19
CPT/HCPCS: 36415; 87804 ×2; 96372; 99284; 87811; J2001; J1100; J0696